=== PATIENT | male | born 1985 | race Caucasian/White ===

== ENCOUNTER 2022-05-12 12:40 | Outpatient (CLI) | payer MEDICARE, MEDICAID, SELFPAY | END 2022-05-12 12:41 | disposition home or self-care (01) | PROVIDERS: PCP Family Medicine; Visit Provider Family Medicine | DX: H90.3 Sensorineural hearing loss, bilateral (principal) | CPT/HCPCS: 92557; 92567 ==

== ENCOUNTER 2025-04-24 08:58 | Outpatient (CLI) | payer MEDICARE, MEDICAID, SELFPAY ==
--- OUTSIDE RECORDS SUMMARY | 2025-04-24 09:13 | XMS_ITS | Encounter Summary ---
Author Organization [facility] Address [address] [place] [address] Phone Care Team Providers Care Operating System Programmer Name Role Phone Marcellus Chino MD Primary Care Provider [phone] Encounter Details Date Type Department Care Team (Late st Contact Info) Description 02/04/2022 Lab Requisition [facility] [address] [place] [address] Marcellus Chino MD [address] [place] [address] [address] [place] [address] Encounter for screening for COVID-19 Social History Tobacco Use Types Packs/Day Years Used Date Smoking Tobacco: Never Smokeless Tobacco: Never Alcohol Use Standard Drinks/Week Comments Not Currently 0 (1 standard drink = 0.6 oz pur e alcohol) AUDIT-C Answer Date Recorded Frequency of Alcohol Consumption Never 03/03/2019 Average Number of Drinks Not on file 019 Frequency of Binge Drinking Not on file 02/18 Sex and Gender Information Value Date Recorded Sex Assigned at Not on file Legal Sex Male 10:37 AM CDT Gender Identity Not on file Sexual Orientation Not on file documented as of this encounter Plan of Treatment Upcoming Encounters Date Type Department Care Team (Late st Contact Info) Description 10/04/2025 10:00 AM ECOTHERAPIST Office Visit [facility] [address] [place] [address] Xi Ellison PAC [address] [place] [address] Discharge Disposition: Discharged to home or Selfcare documented as of this encounter Procedures Procedure Name Priority Date/Time Associated Diagnosis Comments SARS-COV-2 BY MOLECULAR Routine 02/04/2022 8:49 AM CDT Encounter for screening for COVID-19 documented in this encounter Results * SARS-COV-2 BY MOLECULAR (02/04/2022 8:49 AM CDT) SARSCOV2 NOT DETECTED (Referen ce Range for this test is Not Detected ) [facility] THERMOFISHER FAST DX 02/05/2022 3:45 PM CDT [facility] Comment:This test was perfor med by a RT-PCR method. Other Non-Phlebotomy Collection / Unknown 02/04/2022 8:49 AM CDT 02/04/2022 11:24 AM CDT Narrative [facility] - 02/05/2022 3:45 PM CDT Authorized Fact Sheets about this test for providers and patients are available at: https://www.fda.gov/medical-devices/zxohpncgm-mmvzsdhegl-jwubmht-devices/emergen cy-us e-authorizations us Marcellus Chino MD MICROBIOLOGY - GENERAL ORDERAB LES Final Result [facility] [address] [place] [address], documented in this encounter Visit Diagnoses Diagnosis Encounter for screening for COVID-19 documented in this encounter Additional Health Concerns Infection Onset Date Last Indicated Resolved Time COVID - 19 01/21/2022 07/29/2022 08/08/2022 12:1 6 AM ECOTHERAPIST COVID - 19 09/23/2022 10/07/2022 10/08/2022 12:3 9 AM ECOTHERAPIST COVID - 19 Confirmed 10/07/2022 10/07/2022 02/07/2 023 12:16 AM ECOTHERAPIST documented as of this encounter Care Teams Operating System Programmer Relationship Specialty Start Date End Date Marcellus Chino MD [address] [place] [address] PCP - General Family Medicine 09/24/21 documented as of this encounter
--- OUTSIDE RECORDS SUMMARY | 2025-04-24 09:13 | XMS_ITS | Encounter Summary ---
Author Organization [facility] Address [address] [place] [address] Phone Care Team Providers Care Fine Arts Packer Name Role Phone Marcellus Chino MD Primary Care Provider [phone] Encounter Details Date Type Department Care Team (Late st Contact Info) Description 02/11/2022 Lab Requisition [facility] [address] [place] [address] Marcellus Chino MD [address] [place] [address] [address] [place] [address] Encounter for screening for COVID-19 Social History [...] st Contact Info) Description 10/04/2025 10:00 AM CAT CRACKER OPERATOR Office Visit [facility] [address] [place] [address] Xi Ellison PAC 0 [place] [address] Discharge Disposition: Discharged to home or Selfcare documented as of this encounter Procedures Procedure Name Priority Date/Time Associated Diagnosis Comments SARS-COV-2 BY MOLECULAR Routine 02/11/2022 8:30 AM CDT Encounter for screening for COVID-19 documented in this encounter Results * SARS-COV-2 BY MOLECULAR (02/11/2022 8:30 AM CDT) SARSCOV2 NOT DETECTED (Referenc e Range for this test is Not Detected) [facility] DIASORIN LIAISON MDX [id number] 02/12/2022 4:01 AM CDT [facility] Comment:This test was perfor med by a RT-PCR method. Other Non-Phlebotomy Collection / Unknown 02/11/2022 8:30 AM CDT 02/11/2022 10:07 AM CDT Narrative [facility] - 02/12/2022 4:01 AM CDT Authorized Fact Sheets about this test for providers and patients are available at: https://www.fda.gov/medical-devices/milxglhqt-cueiqaskrz-wvdfbkr-devices/emergen -us e-authorizations us Marcellus Chino MD MICROBIOLOGY - GENERAL ORDERAB LES Final Result [facility] [address] [place] [address], documented in this encounter Visit Diagnoses Diagnosis Encounter for screening for COVID-19 documented in this encounter Additional Health Concerns Infection Onset Date Last Indicated Resolved Time COVID - 19 01/21/2022 07/29/2022 08/08/2022 12:1 6 AM CAT CRACKER OPERATOR COVID - 19 09/23/2022 10/07/2022 10/08/2022 12:3 9 AM CAT CRACKER OPERATOR COVID - 19 Confirmed 10/07/2022 10/07/202207/2 023 12:16 AM CAT CRACKER OPERATOR documented as of this encounter Care Teams Fine Arts Packer Relationship Specialty Start Date End Date Marcellus Chino MD [address] [facility] [address] [place] [address] PCP - General Family Medicine 09/24/21 documented as of this encounter
--- OUTSIDE RECORDS SUMMARY | 2025-04-24 09:13 | XMS_ITS | Clinical Summary ---
Author Organization [facility] Address [address] [place] [address] Care Team Providers Care Bottle Assembler Name Role Phone Marcellus Chino MD Primary Care Provider [phone] Allergies No known active allergies Medications fluticasone (FLONASE) 50 MCG/ACT Suspension 2 Sprays by Nasal route every morning. Active cetirizine (ZyrTEC) 10 MG Tablet Take 10 mg by mouth daily. Active Magnesium Hydroxide (MILK OF MAGNESIA PO) Take 30 mL by mouth as needed. Active Dextromethorph an HBr (ROBAFEN COUGH PO) Take by mouth as needed. Active acetaminophen (TYLENOL) 325 MG Tablet Take 325 mg by mouth every 4 hours as needed. Active Polyethylene Glycol 3350 (MIRALAX PO) Take by mouth Daily as needed (constipation) . Active ferrous sulfate 325 (65 Fe) MG Tablet Take 325 mg by mouth daily. 03/29/20 Discontinu ed(Med List Clean Up) Ascorbic Acid (VITAMIN C PO) Take 500 mg by mouth daily. 03/29/20 Discontinu ed(Med List Clean Up) Neomycin-Bacit racin-Polymyxi n (TRIPLE ANTIBIOTIC EX) by Apply externally route as needed. 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 Iron deficiency anemia Encounters Date Type Department Care Team Description 03/29/2025 10:00 AM CDT [facility] [address] [place] [address] Johnny Ellisonlene Linn, PAC Congenital dyserythropoietic anemia (Primary Dx); Iron deficiency anemia, unspecified iron deficiency anemia type; Elevated ferritin Discharge Disposition: Discharged to home or Selfcare 03/29/2025 Travel 03/22/2025 Results Follow-Up [facility] [address] [place] [address] EllisonJohnnyXi Linn, PAC CMP (COMPREHENSIVE METABOLIC PANEL), IRON,TRANSFERN,CALC.TIBC ,%SAT, FOLIC ACID (FOLATE), Additional followed-up results: 3 03/21/2025 Lab Requisition [facility] [address] [place] [address] Ellison, Xi Linn, PAC Iron deficiency anemia, unspecified 01/31/2025 Lab Requisition [facility] [address] [place] [address] Marcellus Chino MD Hypothyroidism, unspecified; Mild intellectual disabilities; Disorder of the autonomic nervous system, unspecified from Last 3 Months Immunizations Immunization Administration Dates Next Due Covid-19, Mrna, Lnp-s, Pf, 30 Mcg/0.3 Ml Dose (P fizer) 07/25/2021 Diptheria, Pertussis, And Tetanus 04/03/1999 Hepatitis B Vaccine 12/02/1998 MMR Vaccine 04/20/1991 OPV 08/04/1986 TDAP Vaccine 12/14/2018 Family History Relation Name Status Comments Father Alive Mother Alive Social History Tobacco Use Types Packs/Day Years Used Date Smoking Tobacco: Never Smokeless Tobacco: Never Tobacco Cessation:Counseling Given: Not Answered Alcohol Use Standard Drinks/Week Comments Yes 0 (1 standard drink = 0.6 oz pur e alcohol) occasionally AUDIT-C Answer Date Recorded Frequency of Alcohol Consumption Never 03/03/2019 Average Number of Drinks Not on file 019 Frequency of Binge Drinking Not on file 02/18 Sex and Gender Information Value Date Recorded Sex Assigned at Not on file Legal Sex Male 10:37 AM CDT Gender Identity Not on file Sexual Orientation Not on file Last Filed Vital Signs Vital Sign Reading Time Taken Comments Blood Pressure 131/80 03/29/2025 10:05 AM CDT Pulse 102 03/29/2025 10:05 AM CDT Temperature 37.2 C (98.9 F) 03/29/2025 10:05 AM CDT Respiratory Rate 18 03/29/2025 10:05 AM CDT Oxygen Saturation 98% 03/29/2025 10:05 AM CDT Inhaled Oxygen Concentration - - Weight 70.3 kg (155 lb) 03/29/2025 10:05 AM CDT Height 160 cm (5' 3) 03/29/2025 10:05 AM CDT Body Mass Index 27.46 03/29/2025 10:05 AM CDT Plan of Treatment Upcoming Encounters Date Type Department Care Team (Late st Contact Info) Description 10/04/2025 10:00 AM RECEIVING CHECKER Office Visit [facility] [address] [place] [address] Xi Ellison Linn, PAC [address] [place] [address] Discharge Disposition: Discharged to home or Selfcare Health Maintenance Due Date Last Done Comments Hepatitis C Virus (HCV) Screening 1985 Hepatitis B Immunization (2 of 3 - 3-dose series) 12/30/1998 12/02/1998 Human Papillomavirus (HPV) Immunization (1 - 3-dose SCDM series) 02/08/2012 SARS-COV-2 Immunization ( season) 2024 07/25/2021, 11/25/2020, 10/31/2020 Influenza Immunization (#1) 2025 Respiratory Syncytial Virus (RSV) Immunization (Adult) (1 - 1-dose 75+ series) 02/08/2060 DTaP/Tdap/Td Immunization Discontinued 12/14/2018, Down Syndrome: TSH Level Discontinued 01/31/2025, 01/18 Down Syndrome: Complete Blood Count Discontinued 03/21/2025, 01/31/2025, 09/21/2024, Additional history exists Down Syndrome: Iron Studies Discontinued 10/2024, 03/21/2025, 09/21/2024, Additional history exists Meningococcal Immunization (ACWY) Aged Out No longer eligible based on patient's age to complete this topic Pneumococcal Immunization Combined Aged Out No longer eligible based on patient's age to complete this topic Rotavirus Immunization Aged Out No lo nger eligible based on patient's age to complete this topic Procedures Procedure Name Priority Date/Time Associated Diagnosis Comments CBC WITH AUTO DIFFERENTIAL Routine 03/21/2025 6:35 AM CDT Iron deficiency anemia, unspecified COMPLETE BLOOD COUNT (CBC) WITH DIFF Routine 03/21/2025 6:35 AM CDT Iron deficiency anemia, unspecified VITAMIN D, 25 HYDROXY TOTAL Routine 03/21/2025 6:35 AM CDT Iron deficiency anemia, unspecified FERRITIN Routine 03/21/2025 6:35 AM CDT Iron deficiency anemia, unspecified FOLIC ACID (FOLATE) Routine 03/21/2025 6 :35 AM CDT Iron deficiency anemia, unspecified IRON,TRANSFERN,CALC.T IBC,%SAT Routine 03/21/2025 6:35 AM CDT Iron deficiency anemia, unspecified CMP (COMPREHENSIVE METABOLIC PANEL) Routine 03/21/2025 6:35 AM CDT Iron deficiency anemia, unspecified CBC WITH AUTO DIFFERENTIAL Routine 01/31/2025 7:18 AM CDT Hypothyroidism, unspecified Mild intellectual disabilities Disorder of the autonomic nervous system, unspecified COMPLETE BLOOD COUNT (CBC) WITH DIFF Routine 01/31/2025 7:18 AM CDT Hypothyroidism, unspecified Mild intellectual disabilities Disorder of the autonomic nervous system, unspecified THYROID STIMULATING HORMONE (TSH) Routine 01/31/2025 7:18 AM CDT Hypothyroidism, unspecified Mild intellectual disabilities Disorder of the autonomic nervous system, unspecified LIPID PANEL Routine 01/31/2025 7:18 AM CDT Hypothyroidism, unspecified Mild intellectual disabilities Disorder of the autonomic nervous system, unspecified CMP (COMPREHENSIVE METABOLIC PANEL) Routine 01/31/2025 7:18 AM CDT Hypothyroidism, unspecified Mild intellectual disabilities Disorder of the autonomic nervous system, unspecified from Last 3 Months Results * VITAMIN D, 25 HYDROXY TOTAL (03/21/2025 6:35 AM CDT) VITAMIN D, 25 HYDROX 29.2 ng/mL 03/21/2025 8:26 AM CDT [facility] Blood Venipuncture / Unknown 03/21/2025 6:35 AM CDT 03/21/2025 7:17 AM CDT Narrative [facility] - 03/21/2025 8:26 AM CDT Published reference ranges for Vitamin D vary depending on time and place and method of testing, and on patient's age, sex, ethnicity and levels of other measured analytes such as parathormone, calcium and phosphorus. The result should be evaluated in conjunction with clinical findings and suspicions. [place] [employer] and Endocrine Clinical Practice Guidelines: Status Vitamin D levels (ng/mL) Deficient <=20 At risk of inadequacy 21-29 Sufficient 30-100 Centers of Disease Control and Prevention Guidelines: Status Vitamin D levels (ng/mL) Deficient <13 At risk of inadequacy 13-19 Sufficient 20-50 Possibly harmful >50 References: [place] [employer], 2010 Dietary reference intakes for calcium and vitamin D. [place]: The National Academies Press. Clinton M, Quinton N, Otis RUSSO, et al., Evaluation, treatment, and prevention of Vitamin D deficiency: an Endocrinology Clinical Practice Guideline. JCEM 2011 96: 7 0681-9620. Chichi A, Braxton C, Kris D, et al., Vitamin D Status: [place], 7782-2836, [facility] data brief, no. 59, MD [place]: National Center for Health Statistics. 2011. Xi Ellison PAC CHEMISTRY ORDERABLES Judith l Result Performing Organization Address City/[facility]/ZIP Co de Phone Number [facility] [place] [address] * (ABNORMAL) IRON,TRANSFERN,CALC.TIBC,%SAT (03/21/2025 6:35 AM CDT) Pathologist [facility] IRON 105 31 - 144 mcg/dL 03/21/2025 10:40 AM CDT [facility] TRANSFERRIN 189 174 - 364 mg/dL 03/21/2025 10:40 AM CDT [facility] TIBC, CALCULATED 236(L) 261 - 462 mcg/dL 03/21/2025 10:40 AM CDT [facility] % SATURATION * 44 15 - 62 % 03/21/2025 10:40 AM CDT [facility] Blood Venipuncture / Unknown 03/21/2025 6:35 AM CDT 03/21/2025 7:17 AM CDT Xi Ellison [facility] CHEMISTRY ORDERABLES Judith l Result Performing Organization Address [facility] Co de Phone Number [facility] [place] [address] * (ABNORMAL) CBC WITH AUTO DIFFERENTIAL (03/21/2025 6:35 AM CDT) Only the most recent of2 resultswithin the time period is included. WBC 6.12 4.00 - 12.00 10(3)/mcL 03/21/2025 8:43 AM CDT [facility] RBC 5.91(H) 4.40 - 5.80 10(6)/mcL 03/21/2025 8:43 AM CDT [facility] HEMOGLOBIN (HGB) 11.9(L) 13.0 - 16.5 g/dL 03/21/2025 8:43 AM CDT [facility] HEMATOCRIT (HCT) 38.5 38.0 - 50.0 % 03/21/2025 8:43 AM CDT [facility] MCV 65.1(L) 82.0 - 96.0 fL 03/21/2025 8:43 AM CDT [facility] MCH 20.1(L) 26.0 - 32.0 pg 03/21/2025 8:43 AM CDT [facility] MCHC 30.9(L) 31.0 - 36.0 g/dL 03/21/2025 8:43 AM CDT [facility] PLATELET COUNT 257 140 - 440 10(3)/mcL 03/21/2025 8:43 AM CDT [facility] RDW 17.3(H) 11.8 - 15.5 % 03/21/2025 8:43 AM CDT [facility] MPV 9.9 8.0 - 12.6 fL 03/21/2025 8:43 AM CDT [facility] NEUTROPHILS 43.4 40.0 - 68.0 % 03/21/2025 8:43 AM CDT [facility] LYMPHOCYTES 41.0 19.0 - 49.0 % 03/21/2025 8:43 AM CDT [facility] MONOCYTES 12.7 3.0 - 13.0 % 03/21/2025 8:43 AM CDT [facility] EOSINOPHILS 1.6 0.0 - 8.0 % 03/21/2025 8:43 AM CDT [facility] BASOPHILS 1.0 0.0 - 1.0 % 03/21/2025 8:43 AM CDT [facility] IMMATURE GRANULOCYTE 0.3 0.0 - 0.4 % 03/21/2025 8:43 AM CDT [facility] Comment:Immature Granulocyte s includes Metamyelocytes, Myelocytes, and Promyelocytes. ABSOLUTE NEUTROPHILS 2.65 1.40 - 5.30 10(3)/mcL 03/21/2025 8:43 AM CDT [facility] ABSOLUTE LYMPHOCYTES 2.51 0.90 - 3.30 10(3)/mcL 03/21/2025 8:43 AM CDT [facility] ABSOLUTE MONOCYTES 0.78 0.10 - 0.90 10(3)/mcL 03/21/2025 8:43 AM CDT [facility] ABSOLUTE EOSINOPHIL 0.10 0.00 - 0.50 10(3)/mcL 03/21/2025 8:43 AM CDT [facility] ABSOLUTE BASOPHILS 0.06 0.00 - 0.10 10(3)/mcL 03/21/2025 8:43 AM CDT [facility] ABSOLUTE IMMATURE GRANULOCYTE 0.02 0.00 - 0.03 10 (3) mcL. 03/21/2025 8:43 AM CDT [facility] NRBC PER 100 WBC 0 03/21/20 8:43 AM CDT [facility] RESULTS ARE CONSISTENT WITH PERIPHERAL SMEAR REVIEW Yes 03/21/2025 8:43 AM CDT [facility] RBC MORPHOLOGY CONSISTENT WITH INDICES Yes 03/21/2025 8:43 AM CDT [facility] POIKILOCYTOSIS 1+ 03/21/2025 8:43 AM CDT [facility] ELLIPTOCYTES Present 03/21/2025 8:43 AM CDT [facility] OVALOCYTES Present 03/21/2025 8:43 AM CDT [facility] POLYCHROMASIA 1+ 03/21/2025 8:43 AM CDT [facility] Blood Venipuncture / Unknown 03/21/2025 6:35 AM CDT 03/21/2025 7:17 AM CDT Narrative [facility] - 03/21/2025 8:43 AM CDT Anisocytosis Microcytosis us Xi Ellison PAC HEMATOLOGY ORDERABLES Fin al Result [facility] [place] [address] * FOLIC ACID (FOLATE) (03/21/2025 6:35 AM CDT) FOLATE 13.1 7.0 - 31.4 ng/mL 03/21/2025 8:26 AM CDT [facility] Blood Venipuncture / Unknown 03/21/2025 6:35 AM CDT 03/21/2025 7:17 AM CDT [facility] PAC CHEMISTRY ORDERABLES Judith l Result Performing Organization Address City/[facility]/ZIP Co de Phone Number [facility] [place] [address] * (ABNORMAL) FERRITIN (03/21/2025 6:35 AM CDT) Pathologist [facility] FERRITIN 872(H) 22 - 274 ng/mL 03/21/2025 8:12 AM CDT [facility] Blood Venipuncture / Unknown 03/21/2025 6:35 AM CDT 03/21/2025 7:17 AM CDT [facility] PAC CHEMISTRY ORDERABLES Judith l Result Performing Organization Address [facility] Co de Phone Number [facility] [place] [address] * (ABNORMAL) CMP (COMPREHENSIVE METABOLIC PANEL) (03/21/2025 6:35 AM CDT) Only the most recent of2 resultswithin the time period is included. Pathologist [facility] SODIUM 142 136 - 145 mmol/L 03/21/2025 7:56 AM CDT [facility] POTASSIUM 3.7 3.5 - 5.1 mmol/L 03/21/2025 7:56 AM CDT [facility] CHLORIDE 106 98 - 107 mmol/L 03/21/2025 7:56 AM CDT [facility] CO2, VENOUS 28 22 - 30 mmol/L 03/21/2025 7:56 AM CDT [facility] ANION GAP 11.7 <18.0 mmol/L 03/21/2025 7:56 AM CDT [facility] GLUCOSE 82 70 - 99 mg/dL 03/21/2025 7:56 AM CDT [facility] BUN 18 9 - 21 mg/dL 03/21/2025 7:56 AM [facility] CREATININE, BLOOD 1.11 0.70 - 1.30 mg/dL 03/21/2025 7:56 AM T [facility] BUN/CREATININE RATIO 16 12 - 20 ratio 03/21/2025 7:56 AM CDT [facility] TOTAL PROTEIN 6.9 6.0 - 8.0 g/dL 03/21/2025 7:56 AM T [facility] ALBUMIN 3.9 3.5 - 5.0 g/dL 03/21/2025 7:56 AM [facility] A/G RATIO 1.3 1.0 - 2.2 03/21/2025 7:56 AM CDT [facility] CALCIUM 8.5(L) 8.7 - 10.5 mg/dL 03/21/2025 7:56 AM T [facility] T BILI 0.6 0.2 - 1.2 mg/dL 03/21/2025 7:56 AM [facility] SGOT (AST) 21 <43 U/L 03/21/2025 7:56 AM [facility] SGPT (ALT) 18 <56 U/L 03/21/2025 7:56 AM [facility] ALKALINE PHOSPHATASE 63 40 - 150 U/L 03/21/2025 7:56 AM [facility] GFR, ESTIMATED >60 >=60 03/21/2025 7:56 AM [facility] Comment: Creatinine Clearance is the preferred criteria for selecting drug dose adjustments in renally impaired patients. The GFR is provided as additional pertinent clinical information. GFR is reported in mL/min/1.73 sq m. Calculation based on the Chronic Kidney Disease Epidemiology Collaboration (CKD- EPI) equation refit without adjustment for race. GFR, EST. >60 >=60 025 7:56 AM CDT [facility] GFR, EST. NONAFRICAN >60 >=60 03/21/2025 7:56 AM CDT [facility] Blood Venipuncture / Unknown 03/21/2025 6:35 AM CDT 03/21/2025 7:17 AM CDT Xi Ellison PAC CHEMISTRY ORDERABLES Judith l Result Performing Organization Address City/[facility]/ZIP Co de Phone Number [facility] [place] [address] * THYROID STIMULATING HORMONE (TSH) (01/31/2025 7:18 AM CDT) TSH 1.760 0.300 - 5.000 mIU/L 01/31/2025 12:26 PM CDT [facility] Blood Venipuncture / Unknown 01/31/2025 7:18 AM CDT 01/31/2025 8:12 AM CDT Marcellus Chino MD CHEMISTRY ORDERABLES Final Res ult [facility] [place] [address] * LIPID PANEL (01/31/2025 7:18 AM CDT) CHOLESTEROL 144 <200 mg/dL 01/31/2025 12:01 PM CDT [facility] TRIGLYCERIDES 61 <150 mg/dL 01/31/2025 12:01 PM CDT [facility] HDL CHOLESTEROL 45 >40 mg/dL 12:01 PM CDT [facility] LDL 87 <130 mg/dL 01/31/2025 12:01 PM CDT [facility] VLDL 12 10 - 50 mg/dL 01/31/2025 12:01 PM CDT [facility] CHOL/HDL RATIO 3.2 0.0 - 4.4 01/31/2025 12:01 PM CDT [facility] NON-HDL CHOLESTEROL 99 <130 mg/dL 01/31/2025 12:01 PM CDT [facility] Blood Venipuncture / Unknown 01/31/2025 7:18 AM CDT 01/31/2025 8:12 AM CDT us Marcellus Chino MD CHEMISTRY ORDERABLES Final Res ult [facility] [place] [address] from Last 3 Months Insurance MEDICARE MEDICAID [place] Advance Directives Documents on File Type Date Recorded Patient Produce Specialist Expl anation Guardian of Person 07/27/2023 10:43 AM [employer] P[employer]ERWORK Other Advance Directive 03/04/2022 10:21 AM [facility] 2 Care Teams Bottle Assembler Relationship Specialty Start Date End Date Marcellus Chino MD [address] [facility] [facility] [address] [place] [address] PCP - General Family Medicine 09/24/21
--- OUTSIDE RECORDS SUMMARY | 2025-04-24 09:14 | XMS_ITS | Encounter Summary ---
Author Organization [facility] Address [address] [facility] [address] Phone Care Team Providers Care Corn Cutter Name Role Phone Marcellus Chino MD Primary Care Provider [phone] Encounter Details Date Type Department Care Team (Late st Contact Info) Description 01/31/2025 Lab Requisition [facility] Laboratory Services 1 [place] [address] Marcellus Chino MD [address] [place] [address] [address] [place] [address] Hypothyroidism, unspecified; Mild intellectual disabilities; Disorder of the autonomic nervous system, unspecified Social History Tobacco Use Types Packs/Day Years Used Date Smoking Tobacco: Never Smokeless Tobacco: Never Alcohol Use Standard Drinks/Week Comments Yes 0 [...] st Contact Info) Description 10/04/2025 10:00 AM ASSOCIATE BROKER Office Visit [facility] Oncology Services [address] [place] [address] Xi Ellison February, PAC [address] [place] [address] Discharge Disposition: Discharged to home or Selfcare documented as of this encounter Procedures Procedure Name Priority Date/Time Associated Diagnosis Comments CBC WITH AUTO DIFFERENTIAL Routine 01/31/2025 7:18 [...] Disorder of the autonomic nervous system, unspecified documented in this encounter Results * (ABNORMAL) CBC WITH AUTO DIFFERENTIAL (01/31/2025 7:18 AM CDT) WBC 6.69 4.00 - 12.00 10(3)/mcL 01/31/2025 9:11 AM CDT [facility] RBC 6.14(H) 4.40 - 5.80 10(6)/mcL 01/31/2025 9:11 AM CDT [facility] HEMOGLOBIN (HGB) 12.3(L) 13.0 - 16.5 g/dL 01/31/2025 9:11 AM CDT [facility] HEMATOCRIT (HCT) 40.5 38.0 - 50.0 % 01/31/2025 9:11 AM CDT [facility] MCV 66.0(L) 82.0 - 96.0 fL 01/31/2025 9:11 AM CDT [facility] MCH 20.0(L) 26.0 - 32.0 pg 01/31/2025 9:11 AM CDT [facility] MCHC 30.4(L) 31.0 - 36.0 g/dL 01/31/2025 9:11 AM CDT [facility] PLATELET COUNT 193 140 - 440 10(3)/mcL 01/31/2025 9:11 AM CDT [facility] RDW 18.1(H) 11.8 - 15.5 % 01/31/2025 9:11 AM CDT [facility] MPV 10.2 8.0 - 12.6 fL 01/31/2025 9:11 AM CDT [facility] NEUTROPHILS 31.0(L) 40.0 - 68.0 % 01/31/2025 9:11 AM CDT [facility] LYMPHOCYTES 48.4 19.0 - 49.0 % 01/31/2025 9:11 AM CDT [facility] MONOCYTES 17.6(H) 3.0 - 13.0 % 01/31/2025 9:11 AM CDT [facility] EOSINOPHILS 2.4 0.0 - 8.0 % 01/31/2025 9:11 AM CDT [facility] BASOPHILS 0.6 0.0 - 1.0 % 01/31/2025 9:11 AM CDT [facility] ABSOLUTE NEUTROPHILS 2.07 1.40 - 5.30 10(3)/mcL 01/31/2025 9:11 AM CDT [facility] ABSOLUTE LYMPHOCYTES 3.24 0.90 - 3.30 10(3)/mcL 01/31/2025 9:11 AM CDT [facility] ABSOLUTE MONOCYTES 1.18(H) 0.10 - 0.90 10(3)/mcL 01/31/2025 9:11 AM CDT [facility] ABSOLUTE EOSINOPHIL 0.16 0.00 - 0.50 10(3)/[facility] 01/31/2025 9:11 AM CDT [facility] ABSOLUTE BASOPHILS 0.04 0.00 - 0.10 10(3)/mcL 01/31/2025 9:11 AM CDT [facility] NRBC PER 100 WBC 0 02/01/20 9:11 AM CDT [facility] RESULTS ARE CONSISTENT WITH PERIPHERAL SMEAR REVIEW Yes 01/31/2025 9:11 AM CDT [facility] RBC MORPHOLOGY CONSISTENT WITH INDICES Yes 01/31/2025 9:11 AM CDT [facility] POIKILOCYTOSIS 1+ 01/31/2025 9:11 AM CDT [facility] TARGET Present 01/31/2025 9:11 AM CDT [facility] OVALOCYTES Present 01/31/2025 9:11 AM CDT [facility] Blood Venipuncture / Unknown 01/31/2025 7:18 AM CDT 01/31/2025 8:12 AM CDT Narrative [facility] - 01/31/2025 9:11 AM CDT Microcytosis us Marcellus Chino MD HEMATOLOGY ORDERABLES Final Re sult Performing Organization Address City/[facility]/ZIP Co de Phone Number [facility] [address] [place] [address] * THYROID STIMULATING HORMONE (TSH) (01/31/2025 7:18 AM CDT) TSH 1.760 0.300 - 5.000 mIU/L 01/31/2025 12:26 PM CDT [facility] Blood Venipuncture / Unknown 01/31/2025 7:18 AM CDT 01/31/2025 8:12 AM CDT Marcellus Chino MD CHEMISTRY ORDERABLES Final Res ult [facility] [address] [place] [address] * LIPID PANEL (01/31/2025 7:18 AM CDT) CHOLESTEROL 144 <200 mg/dL 01/31/2025 12:01 PM CDT [facility] TRIGLYCERIDES 61 <150 mg/dL 01/31/2025 12:01 PM CDT [facility] HDL CHOLESTEROL 45 >40 mg/dL 12:01 PM CDT [facility] LDL 87 <130 mg/dL 01/31/2025 12:01 PM CDT [facility] VLDL 12 10 - 50 mg/dL 01/31/2025 12:01 PM CDT [facility] CHOL/HDL RATIO 3.2 0.0 - 4.4 01/31/2025 12:01 PM CDT [facility] NON-HDL CHOLESTEROL 99 <130 mg/dL 01/31/2025 12:01 PM CDT [facility] Blood Venipuncture / Unknown 01/31/2025 7:18 AM CDT 01/31/2025 8:12 AM CDT us Marcellus Chino MD CHEMISTRY ORDERABLES Final Res ult [facility] [address] [place] [address] * CMP (COMPREHENSIVE METABOLIC PANEL) (01/31/2025 7:18 AM CDT) SODIUM 139 136 - 145 mmol/L 01/31/2025 12:01 PM CDT [facility] POTASSIUM 3.9 3.5 - 5.1 mmol/L 01/31/2025 12:01 PM CDT [facility] CHLORIDE 106 98 - 107 mmol/L 01/31/2025 12:01 PM CDT [facility] CO2, VENOUS 25 22 - 30 mmol/L 01/31/2025 12:01 PM T [facility] ANION GAP 11.9 <18.0 mmol/L 01/31/2025 12:[address] [facility] GLUCOSE 77 70 - 99 mg/dL 01/31/2025 12:[address] [facility] BUN 15 9 - 21 mg/dL 01/31/2025 12:[address] [facility] CREATININE, BLOOD 1.00 0.70 - 1.30 mg/dL 01/31/2025 12:[address] [facility] BUN/CREATININE RATIO 15 12 - 20 ratio 01/31/2025 12:[address] [facility] TOTAL PROTEIN 7.0 6.0 - 8.0 g/dL 01/31/2025 12:[address] [facility] ALBUMIN 3.7 3.5 - 5.0 g/dL 01/31/2025 12:[address] [facility] A/G RATIO 1.1 1.0 - 2.2 01/31/2025 12:[address] [facility] CALCIUM 8.7 8.7 - 10.5 mg/dL 01/31/2025 12:[address] [facility] T BILI 0.4 0.2 - 1.2 mg/dL 01/31/2025 12:[address] [facility] SGOT (AST) 22 <43 U/L 01/31/2025 12:[address] [facility] SGPT (ALT) 15 <56 U/L 01/31/2025 12:[address] [facility] ALKALINE PHOSPHATASE 57 40 - 150 U/L 01/31/2025 12:[address] [facility] GFR, ESTIMATED >60 >=60 01/31/2025 12:[address] [facility] Comment: Creatinine Clearance is the preferred criteria for selecting drug dose adjustments in renally impaired patients. The GFR is provided as additional pertinent clinical information. GFR is reported in mL/min/1.73 sq m. Calculation based on the Chronic Kidney Disease Epidemiology Collaboration (CKD- EPI) equation refit without adjustment for race. GFR, EST. >60 >=60 025 12:01 PM CDT [facility] GFR, EST. NONAFRICAN >60 >=60 01/31/2025 12:01 PM CDT [facility] Blood Venipuncture / Unknown 01/31/2025 7:18 AM CDT 01/31/2025 8:12 AM CDT us Marcellus Chino MD CHEMISTRY ORDERABLES Final Res ult [facility] [address] [place] [address] documented in this encounter Visit Diagnoses Diagnosis Hypothyroidism, unspecified Mild intellectual disabilities Disorder of the autonomic nervous system, unspecified documented in this encounter Care Teams Corn Cutter Relationship Specialty Start Date End Date Marcellus Chino MD [address] [facility] [place] [place] [address] PCP - General Family Medicine 09/24/21 documented as of this encounter
--- OUTSIDE RECORDS SUMMARY | 2025-04-24 09:14 | XMS_ITS | Encounter Summary ---
Author Organization [facility] Address [address] [facility] [place] [address] Phone Care Team Providers Care Art Tracer Name Role Phone Marcellus Chino MD Primary Care Provider [phone] Encounter Details Date Type Department Care Team (Late st Contact Info) Description 04/29/2022 Lab Requisition [facility] Laboratory Services 1 [place] [address] Marcellus Chino MD [address] [place] [address] [address] [place] [address] Encounter for screening for COVID-19 Social History [...] st Contact Info) Description 10/04/2025 10:00 AM BANK WORKER Office Visit [facility] - Cancer Center Oncology Services [address] [place] [address] Xi Ellison PAC 0 [place] [address] Discharge Disposition: Discharged to home or Selfcare documented as of this encounter Procedures Procedure Name Priority Date/Time Associated Diagnosis Comments SARS-COV-2 BY MOLECULAR Routine 04/29/2022 7:53 AM CDT Encounter for screening for COVID-19 documented in this encounter Results * SARS-COV-2 BY MOLECULAR (04/29/2022 7:53 AM CDT) SARSCOV2 NOT DETECTED (Referen ce Range for this test is Not Detected ) [facility] THERMOFISHER FAST DX 04/30/2022 8:01 PM CDT [facility] Comment:This test was perfor med by a RT-PCR method. Other No Phlebotomy Charged / Unknown 04/29/2022 7:53 AM CDT 04/29/2022 11:18 AM CDT Narrative [facility] - 04/30/2022 8:01 PM CDT Authorized Fact Sheets about this test for providers and patients are available at: https://www.fda.gov/medical-devices/msiqwaqeb-nupudmgrqz-qxufqfs-devices/emergen -us e-authorizations us Marcellus Chino MD MICROBIOLOGY - GENERAL ORDERAB LES Final Result [facility] [address] [place] [address], documented in this encounter Visit Diagnoses Diagnosis Encounter for screening for COVID-19 documented in this encounter Additional Health Concerns Infection Onset Date Last Indicated Resolved Time COVID - 19 01/21/2022 07/29/2022 08/08/2022 12:1 6 AM BANK WORKER COVID - 19 09/23/2022 10/07/2022 10/08/2022 12:3 9 AM BANK WORKER COVID - 19 Confirmed 10/07/2022 10/07/2022 02/07/2 023 12:16 AM BANK WORKER documented as of this encounter Care Teams Art Tracer Relationship Specialty Start Date End Date Marcellus Chino MD [address] [facility] [address] [place] [address] PCP - General Family Medicine 09/24/21 documented as of this encounter
--- OUTSIDE RECORDS SUMMARY | 2025-04-24 09:14 | XMS_ITS | Encounter Summary ---
Author Organization [facility] Address [address] [facility] [place] [address] Phone Care Team Providers Care Physician Interventional Cardiologist Name Role Phone Marcellus Chino MD Primary Care Provider [phone] Encounter Details Date Type Department Care Team (Latest Contact Info) Description 09/21/2024 Lab Requisition [facility] Laboratory Services 1 [place] [id number] Xi Ellison Linn, PAC [address] [place] [address] Congenital dyserythropoietic anemia Social History Tobacco Use Types Packs/Day Years [...] st Contact Info) Description 10/04/2025 10:00 AM EMERGENCY NURSE [facility] [address] [place] [phone] Ellison, Xifebruary, [place] [address] Discharge Disposition: Discharged to home or Selfcare documented as of this encounter Procedures Procedure Name Priority Date/Time Associated Diagnosis Comments IRON,TRANSFERN,CALC .TIBC,%SAT Routine 09/21/2024 7:20 AM EMERGENCY NURSE Congenital dyserythropoietic anemia CBC WITH AUTO DIFFERENTIAL Routine 09/21/2024 7:20 AM EMERGENCY NURSE Congenital dyserythropoietic anemia VITAMIN B12 Routine 09/21/2024 7:20 AM EMERGENCY NURSE Congenital dyserythropoietic anemia FERRITIN Routine 09/21/2024 7:20 AM EMERGENCY NURSE Congenital dyserythropoietic anemia COMPLETE BLOOD COUNT (CBC) WITH DIFF Routine 09/21/2024 7:20 AM EMERGENCY NURSE Congenital dyserythropoietic anemia documented in this encounter Results * (ABNORMAL) CBC WITH AUTO DIFFERENTIAL (09/21/2024 7:20 AM EMERGENCY NURSE) WBC 7.77 4.00 - 12.00 10(3)/mcL 09/21/2024 8:33 AM EMERGENCY NURSE [facility] RBC 6.30(H) 4.40 - 5.80 10(6)/mcL 09/21/2024 8:33 AM EMERGENCY NURSE [facility] HEMOGLOBIN (HGB) 12.6(L) 13.0 - 16.5 g/dL 09/21/2024 8:33 AM EMERGENCY NURSE [facility] HEMATOCRIT (HCT) 41.3 38.0 - 50.0 % 09/21/2024 8:33 AM EMERGENCY NURSE [facility] MCV 65.6(L) 82.0 - 96.0 fL 09/21/2024 8:33 AM EMERGENCY NURSE [facility] MCH 20.0(L) 26.0 - 32.0 pg 09/21/2024 8:33 AM EMERGENCY NURSE [facility] MCHC 30.5(L) 31.0 - 36.0 g/dL 09/21/2024 8:33 AM [facility] PLATELET COUNT 266 140 - 440 10(3)/[facility] 09/21/2024 8:33 AM [facility] RDW 18.2(H) 11.8 - 15.5 % 09/21/2024 8:33 AM [facility] MPV 9.9 8.0 - 12.6 fL 09/21/2024 8:33 AM [facility] NEUTROPHILS 54.4 40.0 - 68.0 % 09/21/2024 8:33 AM [facility] LYMPHOCYTES 32.7 19.0 - 49.0 % 09/21/2024 8:33 AM [facility] MONOCYTES 11.1 3.0 - 13.0 % 09/21/2024 8:33 AM [facility] EOSINOPHILS 1.0 0.0 - 8.0 % 09/21/2024 8:33 AM [facility] BASOPHILS 0.8 0.0 - 1.0 % 09/21/2024 8:33 AM [facility] ABSOLUTE NEUTROPHILS 4.23 1.40 - 5.30 10(3)/[facility] 09/21/2024 8:33 AM [facility] ABSOLUTE LYMPHOCYTES 2.54 0.90 - 3.30 10(3)/[facility] 09/21/2024 8:33 AM [facility] ABSOLUTE MONOCYTES 0.86 0.10 - 0.90 10(3)/[facility] 09/21/2024 8:33 AM [facility] ABSOLUTE EOSINOPHIL 0.08 0.00 - 0.50 10(3)/[facility] 09/21/2024 8:33 AM [facility] ABSOLUTE BASOPHILS 0.06 0.00 - 0.10 10(3)/[facility] 09/21/2024 8:33 AM [facility] NRBC PER 100 WBC 0 09/21/19 8:33 AM [facility] RESULTS ARE CONSISTENT WITH PERIPHERAL SMEAR REVIEW Yes 09/21/2024 8:33 AM EMERGENCY NURSE [facility] RBC MORPHOLOGY CONSISTENT WITH INDICES Yes 09/21/2024 8:33 AM EMERGENCY NURSE [facility] Blood Venipuncture / Unknown 09/21/2024 7:20 AM EMERGENCY NURSE 09/21/2024 8:11 AM EMERGENCY NURSE [facility] HEMATOLOGY ORDERABLES Fin al Result [facility] [address] [place] [address] * (ABNORMAL) IRON,TRANSFERN,CALC.TIBC,%SAT (09/21/2024 7:20 AM EMERGENCY NURSE) IRON 72 31 - 144 mcg/dL 09/21/2024 10:25 AM EMERGENCY NURSE [facility] TRANSFERRIN 202 174 - 364 mg/dL 09/21/2024 10:25 AM EMERGENCY NURSE [facility] TIBC, CALCULATED 253(L) 261 - 462 mcg/dL 09/21/2024 10:25 AM EMERGENCY NURSE [facility] % SATURATION * 28 15 - 62 % 09/21/2024 10:25 AM EMERGENCY NURSE [facility] Blood Venipuncture / Unknown 09/21/2024 7:20 AM EMERGENCY NURSE 09/21/2024 8:11 AM EMERGENCY NURSE [facility] CHEMISTRY ORDERABLES Judith l Result [facility] [address] [place] [address] * (ABNORMAL) VITAMIN B12 (09/21/2024 7:20 AM EMERGENCY NURSE) VITAMIN B12 997(H) 213 - 816 pg/mL 09/21/2024 9:06 AM EMERGENCY NURSE [facility] Blood Venipuncture / Unknown 09/21/2024 7:20 AM EMERGENCY NURSE 09/21/2024 8:11 AM EMERGENCY NURSE [facility] PAC CHEMISTRY ORDERABLES Judith l Result Performing Organization Address City/[facility]/ZIP Co de Phone Number [facility] [address] [place] [address] * (ABNORMAL) FERRITIN (09/21/2024 7:20 AM EMERGENCY NURSE) FERRITIN 1,022(H) 22 - 274 ng/mL 09/21/2024 10:42 AM EMERGENCY NURSE [facility] Blood Venipuncture / Unknown 09/21/2024 7:20 AM EMERGENCY NURSE 09/21/2024 8:11 AM EMERGENCY NURSE [facility] PAC CHEMISTRY ORDERABLES Judith l Result Performing Organization Address [facility] Co de Phone Number [facility] [address] [place] [address] documented in this encounter Visit Diagnoses Diagnosis Congenital dyserythropoietic anemia Other specified anemias documented in this encounter Care Teams Physician Interventional Cardiologist Relationship Specialty Start Date End Date Marcellus Chino MD [address] [facility] [address] [place] [address] PCP - General Family Medicine 09/24/21 documented as of this encounter
--- OUTSIDE RECORDS SUMMARY | 2025-04-24 09:14 | XMS_ITS | Encounter Summary ---
Author Organization [facility] Address [address] [facility] [place] [address] Phone Care Team Providers Care Electronic Parts Designer Name Role Phone Marcellus Chino MD Primary Care Provider [phone] Encounter Details Date Type Department Care Team (Late st Contact Info) Description 05/20/2022 Lab Requisition [facility] Laboratory Services 1 [place] [address] Marcellus Chino MD [address] [place] [address] [address] [place] [address] Encounter for screening for COVID-19 Social History [...] st Contact Info) Description 10/04/2025 10:00 AM CLINICAL RESEARCH ASSOCIATE Office Visit [facility] Oncology Services [address] [place] [address] Xi Ellison PAC 0 [place] [address] Discharge Disposition: Discharged to home or Selfcare documented as of this encounter Procedures Procedure Name Priority Date/Time Associated Diagnosis Comments SARS-COV-2 BY MOLECULAR Routine 05/20/2022 8:21 AM CDT Encounter for screening for COVID-19 documented in this encounter Results * SARS-COV-2 BY MOLECULAR (05/20/2022 8:21 AM CDT) SARSCOV2 NOT DETECTED (Referen ce Range for this test is Not Detected ) [facility] THERMOFISHER FAST DX 05/21/2022 6:15 AM CDT [facility] Comment:This test was perfor med by a RT-PCR method. Other Non-Phlebotomy Collection / Unknown 05/20/2022 8:21 AM CDT 05/20/2022 12:01 PM CDT Narrative [facility] - 05/21/2022 6:15 AM CDT Authorized Fact Sheets about this test for providers and patients are available at: https://www.fda.gov/medical-devices/kkcvoanyo-ssfwznhyms-ktnjmue-devices/emergen cy-us e-authorizations us Marcellus Chino MD MICROBIOLOGY - GENERAL ORDERAB LES Final Result [facility] [address] [place] [address], documented in this encounter Visit Diagnoses Diagnosis Encounter for screening for COVID-19 documented in this encounter Additional Health Concerns Infection Onset Date Last Indicated Resolved Time COVID - 19 01/21/2022 07/29/2022 08/08/2022 12:1 6 AM CLINICAL RESEARCH ASSOCIATE COVID - 19 09/23/2022 10/07/2022 10/08/2022 12:3 9 AM CLINICAL RESEARCH ASSOCIATE COVID - 19 Confirmed 10/07/2022 10/07/2022 02/07/2 023 12:16 AM CLINICAL RESEARCH ASSOCIATE documented as of this encounter Care Teams Electronic Parts Designer Relationship Specialty Start Date End Date Marcellus Chino MD [address] [facility] [address] [place] [address] PCP - General Family Medicine 09/24/21 documented as of this encounter
--- OUTSIDE RECORDS SUMMARY | 2025-04-24 09:14 | XMS_ITS | Encounter Summary ---
Author Organization [facility] Address [address] [facility] [place] [address] Phone Care Team Providers Care Gang Tailer Name Role Phone Marcellus Chino MD Primary Care Provider [phone] Encounter Details Date Type Department Care Team (Late st Contact Info) Description 06/10/2022 Lab Requisition [facility] Laboratory Services 1 [place] [address] Marcellus Chino MD [address] [place] [address] [address] [place] [address] Encounter for screening for COVID-19 Social History [...] st Contact Info) Description 10/04/2025 10:00 AM DRIVING SCHOOL INSTRUCTOR Office Visit [facility] - Cancer Center Oncology Services [address] [place] [address] Xi Ellison PAC 0 [place] [address] Discharge Disposition: Discharged to home or Selfcare documented as of this encounter Procedures Procedure Name Priority Date/Time Associated Diagnosis Comments SARS-COV-2 BY MOLECULAR Routine 06/10/2022 8:13 AM CDT Encounter for screening for COVID-19 documented in this encounter Results * SARS-COV-2 BY MOLECULAR (06/10/2022 8:13 AM CDT) SARSCOV2 NOT DETECTED (Referen ce Range for this test is Not Detected ) [facility] THERMOFISHER FAST DX 06/11/2022 10:23 AM CDT [facility] Comment:This test was perfor med by a RT-PCR method. Other No Phlebotomy Charged / Unknown 06/10/2022 8:13 AM CDT 06/10/2022 10:45 AM CDT Narrative [facility] - 06/11/2022 10:23 AM CDT Authorized Fact Sheets about this test for providers and patients are available at: https://www.fda.gov/medical-devices/qtmcgrqqu-hbgtumezji-jcjwjtq-devices/emergen -us e-authorizations us Marcellus Chino MD MICROBIOLOGY - GENERAL ORDERAB LES Final Result [facility] [address] [place] [address], documented in this encounter Visit Diagnoses Diagnosis Encounter for screening for COVID-19 documented in this encounter Additional Health Concerns Infection Onset Date Last Indicated Resolved Time COVID - 19 01/21/2022 07/29/2022 08/08/2022 12:1 6 AM DRIVING SCHOOL INSTRUCTOR COVID - 19 09/23/2022 10/07/2022 10/08/2022 12:3 9 AM DRIVING SCHOOL INSTRUCTOR COVID - 19 Confirmed 10/07/2022 10/07/2022 02/07/2 023 12:16 AM DRIVING SCHOOL INSTRUCTOR documented as of this encounter Care Teams Gang Tailer Relationship Specialty Start Date End Date Marcellus Chino MD [address] [facility] [address] [place] [address] PCP - General Family Medicine 09/24/21 documented as of this encounter
--- OUTSIDE RECORDS SUMMARY | 2025-04-24 09:14 | XMS_ITS | Encounter Summary ---
Author Organization [facility] Address [address] [facility] [place] [address] Phone Care Team Providers Care Customer Consulting Manager Name Role Phone Marcellus Chino MD Primary Care Provider [phone] Encounter Details Date Type Department Care Team (Late st Contact Info) Description 07/01/2022 Lab Requisition [facility] Services 1 [place] [address] Marcellus Chino MD [address] [place] [address] [address] [place] [address] Encounter for screening for COVID-19 Social History [...] st Contact Info) Description 10/04/2025 10:00 AM HERBICIDE SPRAYER Office Visit [facility] Services [address] [place] [address] Xi Ellison PAC 0 [place] [address] Discharge Disposition: Discharged to home or Selfcare documented as of this encounter Procedures Procedure Name Priority Date/Time Associated Diagnosis Comments SARS-COV-2 BY MOLECULAR Routine 07/01/2022 8:38 AM CDT Encounter for screening for COVID-19 documented in this encounter Results * SARS-COV-2 BY MOLECULAR (07/01/2022 8:38 AM CDT) SARSCOV2 NOT DETECTED (Referen ce Range for this test is Not Detected ) [facility] THERMOFISHER FAST DX 07/02/2022 12:18 AM CDT [facility] Comment:This test was perfor med by a RT-PCR method. Other Non-Phlebotomy Collection / Unknown 07/01/2022 8:38 AM CDT 07/01/2022 11:06 AM CDT Narrative [facility] - 07/02/2022 12:18 AM CDT Authorized Fact Sheets about this test for providers and patients are available at: https://www.fda.gov/medical-devices/orvonoalw-nriyenljcv-vsrnqty-devices/emergen cy-us e-authorizations us Marcellus Chino MD MICROBIOLOGY - GENERAL ORDERAB LES Final Result [facility] [address] [place] [address], documented in this encounter Visit Diagnoses Diagnosis Encounter for screening for COVID-19 documented in this encounter Additional Health Concerns Infection Onset Date Last Indicated Resolved Time COVID - 19 01/21/2022 07/29/2022 08/08/2022 12:1 6 AM HERBICIDE SPRAYER COVID - 19 09/23/2022 10/07/2022 10/08/2022 12:3 9 AM HERBICIDE SPRAYER COVID - 19 Confirmed 10/07/2022 10/07/2022 02/07/2 023 12:16 AM HERBICIDE SPRAYER documented as of this encounter Care Teams Customer Consulting Manager Relationship Specialty Start Date End Date Marcellus Chino MD [address] [facility] [address] [place] [address] PCP - General Family Medicine 09/24/21 documented as of this encounter
--- OUTSIDE RECORDS SUMMARY | 2025-04-24 09:14 | XMS_ITS | Encounter Summary ---
Author Organization [facility] Address [address] [place] [address] Phone Care Team Providers Care Cable Assembler Name Role Phone Marcellus Chino MD Primary Care Provider [phone] Encounter Details Date Type Department Care Team (Late st Contact Info) Description 07/28/2022 Nursing Facility [facility] [address] [place] [address] Noe Mcarthur MD [address] [place] [address] Social History Tobacco Use Types Packs/Day Years [...] on file Sexual Orientation Not on file COVID-19 Exposure Response Date Recorded In the last 10 days, have yo u been in contact with someone who was confirmed or suspected to have Coronavirus/COVID-19? No / Unsure 07/21/2022 7:09 PM CDT documented as of this encounter Last Filed Vital Signs Vital Sign Reading Time Taken Comments Blood Pressure 111/73 07/28/2022 3:24 PM PRODUCT MANAGER Pulse 102 07/28/2022 3:24 PM PRODUCT MANAGER Temperature 36.3 C (97.3 F) 07/28/2022 3:24 PM PRODUCT MANAGER Respiratory Rate 15 07/28/2022 3:24 PM PRODUCT MANAGER Oxygen Saturation - - Inhaled Oxygen Concentration - - Weight - - Height - - Body Mass Index - - documented in this encounter Plan of Treatment Upcoming Encounters Date Type Department Care Team (Late st Contact Info) Description 10/04/2025 10:00 AM PRODUCT MANAGER [facility] [address] [place] [address] Xi Ellison Linn, PAC [address] [place] [address] Discharge Disposition: Discharged to home or Selfcare documented as of this encounter Visit Diagnoses Not on filedocumented in this encounter Additional Health Concerns Infection Onset Date Last Indicated Resolved Time COVID - 19 01/21/2022 07/29/2022 08/08/2022 12:1 6 AM PRODUCT MANAGER COVID - 19 09/23/2022 10/07/2022 10/08/2022 12:3 9 AM PRODUCT MANAGER COVID - 19 Confirmed 10/07/2022 10/07/2022 023 12:16 AM PRODUCT MANAGER documented as of this encounter Care Teams Cable Assembler Relationship Specialty Start Date End Date Marcellus Chino MD [address] [facility] [address] [place] [address] PCP - General Family Medicine 09/24/21 documented as of this encounter
--- OUTSIDE RECORDS SUMMARY | 2025-04-24 09:14 | XMS_ITS | Encounter Summary ---
Author Organization [facility] Address [address] [facility] [place] [address] Phone Care Team Providers Care Washer Engineer Helper Name Role Phone Yadira Durbin MD Primary Care Provider [phone] Marcellus Chino MD Primary Care Provider [phone] Encounter Details Date Type Department Care Team (Late st Contact Info) Description 07/02/2021 Lab Requisition [facility] Laboratory Services 1 [place] [address] Marcellus Chino MD [address] [place] [address] Social History Tobacco Use Types Packs/Day Years [...] st Contact Info) Description 10/04/2025 10:00 AM BUSINESS SUPPORT Office Visit [facility] Oncology Services [address] [place] [phone] Xi Ellison Linn, PAC [address] [place] [address] Discharge Disposition: Discharged to home or Selfcare documented as of this encounter Procedures Procedure Name Priority Date/Time Associated Diagnosis Comments SARS-COV-2 BY MOLECULAR Routine 07/02/2021 8:34 AM CDT documented in this encounter Results * SARS-COV-2 BY MOLECULAR (07/02/2021 8:34 AM CDT) SARSCOV2 NOT DETECTED (Referen ce Range for this test is Not Detected ) [facility] THERMOFISHER FAST DX 07/03/2021 10:46 AM CDT [facility] Comment:This test was perfor med by a RT-PCR method. Other Non-Phlebotomy Collection / Unknown 07/02/2021 8:34 AM CDT 07/02/2021 10:40 AM CDT Narrative [facility] - 07/03/2021 10:46 AM CDT Authorized Fact Sheets about this test for providers and patients are available at: https://www.fda.gov/medical-devices/kjbsforpu-dmatwufslp-ydbukzk-devices/emergen -us e-authorizations us Marcellus Chino MD MICROBIOLOGY - GENERAL ORDERAB LES Final Result [facility] [address] [facility] [place] [address], documented in this encounter Visit Diagnoses Not on filedocumented in this encounter Additional Health Concerns Infection Onset Date Last Indicated Resolved Time COVID - 19 06/11/2021 10/15/2021 10/16/2021 9:00 AM BUSINESS SUPPORT COVID - 19 09/03/2021 09/10/2021 09/23/2021 12:1 6 AM BUSINESS SUPPORT COVID - 19 Confirmed 10/15/2021 10/15/2021 022 12:16 AM BUSINESS SUPPORT COVID - 19 10/29/2021 10/29/2021 11/18/2021 12:1 6 AM BUSINESS SUPPORT COVID - 19 12/31/2021 12/31/2021 01/20/2022 12:1 6 AM CDT COVID - 19 01/21/2022 07/29/2022 08/08/2022 12:1 6 AM BUSINESS SUPPORT COVID - 19 09/23/2022 10/07/2022 10/08/2022 12:3 9 AM BUSINESS SUPPORT COVID - 19 Confirmed 10/07/2022 10/07/2022 023 12:16 AM BUSINESS SUPPORT documented as of this encounter Care Teams Washer Engineer Helper Relationship Specialty Start Date End Date Yadira Durbin MD PCP - General Family Medicine 12/02/18 09/17/21 Marcellus Chino MD [address] [facility] [address] [facility][note 3] [place] [address] PCP - General Family Medicine 09/24/21 documented as of this encounter
--- OUTSIDE RECORDS SUMMARY | 2025-04-24 09:14 | XMS_ITS | Encounter Summary ---
Author Organization [facility] Address [address] [place] [address] Phone Care Team Providers Care Scalp Treatment Operator Name Role Phone Marcellus Chino MD Primary Care Provider [phone] Encounter Details Date Type Department Care Team (Late st Contact Info) Description 07/22/2022 Lab Requisition [facility] Laboratory Services 1 [place] [address] Marcellus Chino MD [address] [place] [address] [facility] [address] [place], [place] [id number] Encounter for screening for COVID-19 Social History [...] PM CDT documented as of this encounter Plan of Treatment Upcoming Encounters Date Type Department Care Team (Late st Contact Info) Description 10/04/2025 10:00 AM AIRLINE PILOT/FIRST OFFICER Office Visit [facility] Oncology Services [address] [place] [phone] Xi Ellison Linn, PAC [address] [place] [address] Discharge Disposition: Discharged to home or Selfcare documented as of this encounter Procedures Procedure Name Priority Date/Time Associated Diagnosis Comments SARS-COV-2 BY MOLECULAR Routine 07/22/2022 8:53 AM CDT Encounter for screening for COVID-19 documented in this encounter Results * SARS-COV-2 BY MOLECULAR (07/22/2022 8:53 AM CDT) SARSCOV2 NOT DETECTED (Referen ce Range for this test is Not Detected ) [facility] THERMOFISHER FAST DX 07/23/2022 9:34 AM CDT [facility] Comment:This test was perfor med by a RT-PCR method. Other Non-Phlebotomy Collection / Unknown 07/22/2022 8:53 AM CDT 07/22/2022 11:07 AM CDT Narrative [facility] - 07/23/2022 9:34 AM CDT Authorized Fact Sheets about this test for providers and patients are available at: https://www.fda.gov/medical-devices/ixywumhos-myboddscil-utaoihl-devices/emergen -us e-authorizations us Marcellus Chino MD MICROBIOLOGY - GENERAL ORDERAB LES Final Result [facility] [address] [place] [address], [place] documented in this encounter Visit Diagnoses Diagnosis Encounter for screening for COVID-19 documented in this encounter Additional Health Concerns Infection Onset Date Last Indicated Resolved Time COVID - 19 01/21/2022 07/29/2022 08/08/2022 12:1 6 AM AIRLINE PILOT/FIRST OFFICER COVID - 19 09/23/2022 10/07/2022 10/08/2022 12:3 9 AM AIRLINE PILOT/FIRST OFFICER COVID - 19 Confirmed 10/07/2022 10/07/2022 023 12:16 AM AIRLINE PILOT/FIRST OFFICER documented as of this encounter Care Teams Scalp Treatment Operator Relationship Specialty Start Date End Date Marcellus Chino MD [address] [facility] [address] [place] [address] PCP - General Family Medicine 09/24/21 documented as of this encounter
--- OUTSIDE RECORDS SUMMARY | 2025-04-24 09:14 | XMS_ITS | Encounter Summary ---
Author Organization [facility] Address [address] [place] [address] Phone Care Team Providers Care Watch Technician Name Role Phone Yadira Durbin MD Primary Care Provider [phone] Marcellus Chino MD Primary Care Provider [phone] Encounter Details Date Type Department Care Team (Late st Contact Info) Description 07/30/2021 Lab Requisition [facility] Laboratory Services 1 [place] [address] Marcellus Chino MD [address] [place] [address] Encounter for screening for COVID-19 Social History [...] st Contact Info) Description 10/04/2025 10:00 AM RESPIRATORY THERAPY ASSISTANT Office Visit [facility] Oncology Services [address] [place] [address] Xi Ellison Linn, PAC [address] [place] [address] Discharge Disposition: Discharged to home or Selfcare documented as of this encounter Procedures Procedure Name Priority Date/Time Associated Diagnosis Comments SARS-COV-2 BY MOLECULAR Routine 07/30/2021 8:18 AM RESPIRATORY THERAPY ASSISTANT Encounter for screening for COVID-19 documented in this encounter Results * SARS-COV-2 BY MOLECULAR (07/30/2021 8:18 AM RESPIRATORY THERAPY ASSISTANT) SARSCOV2 NOT DETECTED (Referen ce Range for this test is Not Detected ) [facility] THERMOFISHER FAST DX 07/31/2021 7:26 AM RESPIRATORY THERAPY ASSISTANT [facility] Comment:This test was perfor med by a RT-PCR method. Other Non-Phlebotomy Collection / Unknown 07/30/2021 8:18 AM RESPIRATORY THERAPY ASSISTANT 07/30/2021 11:13 AM RESPIRATORY THERAPY ASSISTANT Narrative [facility] - 07/31/2021 7:26 AM RESPIRATORY THERAPY ASSISTANT Authorized Fact Sheets about this test for providers and patients are available at: https://www.fda.gov/medical-devices/zvyrzvbub-errzunggvq-zilqlbw-devices/emergen -us e-authorizations us Marcellus Chino MD MICROBIOLOGY - GENERAL ORDERAB LES Final Result Performing Organization Address City/State/[facility] Co de Phone Number [facility] [address] [place] [address], documented in this encounter Visit Diagnoses Diagnosis Encounter for screening for COVID-19 documented in this encounter Additional Health Concerns Infection Onset Date Last Indicated Resolved Time COVID - 19 06/11/2021 10/15/2021 10/16/2021 9:00 AM RESPIRATORY THERAPY ASSISTANT COVID - 19 09/03/2021 09/10/2021 09/23/2021 12:1 6 AM RESPIRATORY THERAPY ASSISTANT COVID - 19 Confirmed 10/15/2021 10/15/2021 022 12:16 AM RESPIRATORY THERAPY ASSISTANT COVID - 10/29/2021 10/29/2021 11/18/2021 12:1 6 AM RESPIRATORY THERAPY ASSISTANT COVID - 19 12/31/2021 12/31/2021 01/20/2022 12:1 6 AM CDT COVID - 19 01/21/2022 07/29/2022 08/08/2022 12:1 6 AM RESPIRATORY THERAPY ASSISTANT COVID - 19 09/23/2022 10/07/2022 10/08/2022 12:3 9 AM RESPIRATORY THERAPY ASSISTANT COVID - 19 Confirmed 10/07/2022 10/07/2022 023 12:16 AM RESPIRATORY THERAPY ASSISTANT documented as of this encounter Care Teams Watch Technician Relationship Specialty Start Date End Date Yadira Durbin MD PCP - General Family Medicine 12/02/18 09/17/21 Marcellus Chino MD [address] [facility] [place] [address] PCP - General Family Medicine 09/24/21 documented as of this encounter
--- OUTSIDE RECORDS SUMMARY | 2025-04-24 09:14 | XMS_ITS | Encounter Summary ---
Author Organization [facility] Address [address] [facility] [place] [address] Phone Care Team Providers Care Infrastructure Analyst Name Role Phone Yadira Durbin MD Primary Care Provider [phone] Marcellus Chino MD Primary Care Provider [phone] Encounter Details Date Type Department Care Team (Late st Contact Info) Description 09/03/2021 Lab Requisition [facility] Laboratory Services 1 [place] [address] Marcellus Chino MD [address] [place] [address] Encounter for screening for COVID-19 Social History Tobacco Use Types Packs/Day Years Used Date Smoking Tobacco: Never Assessed AUDIT-C Answer Date Recorded Frequency of Alcohol [...] st Contact Info) Description 10/04/2025 10:00 AM LICENSED VOCATIONAL NURSE Office Visit [facility] Oncology Services [address] [place] [address] Xi Ellison February, [address] [place] [address] Discharge Disposition: Discharged to home or Selfcare documented as of this encounter Procedures Procedure Name Priority Date/Time Associated Diagnosis Comments SARS-COV-2 BY MOLECULAR Routine 09/03/2021 8:40 AM LICENSED VOCATIONAL NURSE Encounter for screening for COVID-19 documented in this encounter Results * SARS-COV-2 BY MOLECULAR (09/03/2021 8:40 AM LICENSED VOCATIONAL NURSE) SARSCOV2 NOT DETECTED (Referen ce Range for this test is Not Detected ) [facility] THERMOFISHER FAST DX 09/05/2021 8:04 AM LICENSED VOCATIONAL NURSE [facility] Comment:This test was perfor med by a RT-PCR method. Other No Phlebotomy Charged / Unknown 09/03/2021 8:40 AM LICENSED VOCATIONAL NURSE 09/03/2021 11:39 AM LICENSED VOCATIONAL NURSE Narrative [facility] - 09/05/2021 8:04 AM LICENSED VOCATIONAL NURSE Authorized Fact Sheets about this test for providers and patients are available at: https://www.fda.gov/medical-devices/nhbwdynxv-zyniwopihz-dsqxcqs-devices/emergen -us e-authorizations Marcellus Chino MD MICROBIOLOGY - GENERAL ORDERAB LES Final Result [facility] [address] [place] [address], documented in this encounter Visit Diagnoses Diagnosis Encounter for screening for COVID-19 documented in this encounter Additional Health Concerns Infection Onset Date Last Indicated Resolved Time COVID - 19 06/11/2021 10/15/2021 10/16/2021 9:00 AM LICENSED VOCATIONAL NURSE COVID - 19 09/03/2021 09/10/2021 09/23/2021 12:1 6 AM LICENSED VOCATIONAL NURSE COVID - 19 Confirmed 10/15/2021 10/15/2021 022 12:16 AM LICENSED VOCATIONAL NURSE COVID - 19 10/29/2021 10/29/2021 11/18/2021 12:1 6 AM LICENSED VOCATIONAL NURSE COVID - 12/31/2021 12/31/2021 01/20/2022 12:1 6 AM CDT COVID - 19 01/21/2022 07/29/2022 08/08/2022 12:1 6 AM LICENSED VOCATIONAL NURSE COVID - 19 09/23/2022 10/07/2022 10/08/2022 12:3 9 AM LICENSED VOCATIONAL NURSE COVID - 19 Confirmed 10/07/2022 10/07/2022 023 12:16 AM LICENSED VOCATIONAL NURSE documented as of this encounter Care Teams Infrastructure Analyst Relationship Specialty Start Date End Date Yadira Durbin MD PCP - General Family Medicine 12/02/18 09/17/21 Marcellus Chino MD [address] [place] [address] [place] [address] PCP - General Family Medicine 09/24/21 documented as of this encounter
--- OUTSIDE RECORDS SUMMARY | 2025-04-24 09:14 | XMS_ITS | Encounter Summary ---
Author Organization [facility] Address [address] [facility] [place] [address] Phone Care Team Providers Care Clinical Systems Educator Name Role Phone Yadira Durbin MD Primary Care Provider [phone] Marcellus Chino MD Primary Care Provider [phone] Encounter Details Date Type Department Care Team (Late st Contact Info) Description 08/27/2021 Lab Requisition [facility] Laboratory Services 1 [place] [address] Marcellus Chino MD [address] [place] [address] Encounter for screening for COVID-19 Social [...] st Contact Info) Description 10/04/2025 10:00 AM CITY SANITARIAN Office Visit [facility] Oncology Services [address] [place] [address] Xi Ellison Linn, PAC [address] [place] [address] Discharge Disposition: Discharged to home or Selfcare documented as of this encounter Procedures Procedure Name Priority Date/Time Associated Diagnosis Comments SARS-COV-2 BY MOLECULAR Routine 08/27/2021 8:28 AM CITY SANITARIAN Encounter for screening for COVID-19 documented in this encounter Results * SARS-COV-2 BY MOLECULAR (08/27/2021 8:28 AM CITY SANITARIAN) SARSCOV2 NOT DETECTED (Referen ce Range for this test is Not Detected ) [facility] THERMOFISHER FAST DX 08/28/2021 8:03 AM CITY SANITARIAN [facility] Comment:This test was perfor med by a RT-PCR method. Other No Phlebotomy Charged / Unknown 08/27/2021 8:28 AM CITY SANITARIAN 08/27/2021 11:09 AM CITY SANITARIAN Narrative [facility] - 08/28/2021 8:03 AM CITY SANITARIAN Authorized Fact Sheets about this test for providers and patients are available at: https://www.fda.gov/medical-devices/opguwfmme-lvrorzacxa-geusgud-devices/emergen -us e-authorizations us Marcellus Chino MD MICROBIOLOGY - GENERAL ORDERAB LES Final Result Performing Organization Address City/State/[facility] Co de Phone Number [facility] [address] [place] [address], documented in this encounter Visit Diagnoses Diagnosis Encounter for screening for COVID-19 documented in this encounter Additional Health Concerns Infection Onset Date Last Indicated Resolved Time COVID - 19 06/11/2021 10/15/2021 10/16/2021 9:00 AM CITY SANITARIAN COVID - 19 09/03/2021 09/10/2021 09/23/2021 12:1 6 AM CITY SANITARIAN COVID - 19 Confirmed 10/15/2021 10/15/2021 022 12:16 AM CITY SANITARIAN COVID - 19 10/29/2021 10/29/2021 11/18/2021 12:1 6 AM CITY SANITARIAN COVID - 19 12/31/2021 12/31/2021 01/20/2022 12:1 6 AM CDT COVID - 19 01/21/2022 07/29/2022 08/08/2022 12:1 6 AM CITY SANITARIAN COVID - 19 09/23/2022 10/07/2022 10/08/2022 12:3 9 AM CITY SANITARIAN COVID - 19 Confirmed 10/07/2022 10/07/2022 023 12:16 AM CITY SANITARIAN documented as of this encounter Care Teams Clinical Systems Educator Relationship Specialty Start Date End Date Yadira Durbin MD PCP - General Family Medicine 12/02/18 09/17/21 Marcellus Chino MD [address] [facility] [place] [address] PCP - General Family Medicine 09/24/21 documented as of this encounter
--- OUTSIDE RECORDS SUMMARY | 2025-04-24 09:14 | XMS_ITS | Encounter Summary ---
Author Organization [facility] Address [address] [facility] [place] [address] Phone Care Team Providers Care Cruise Consultant Name Role Phone Marcellus Chino MD Primary Care Provider [phone] Encounter Details Date Type Department Care Team (Late st Contact Info) Description 03/21/2025 Lab Requisition [facility] Laboratory Services 1 [place] [id number] Xi Ellison Linn, PAC [address] [place] [address] Iron deficiency anemia, unspecified Social History Tobacco Use Types Packs/Day [...] Encounters Date Type Department Care Team (Late Contact Info) Description 10/04/2025 10:00 AM MIXER WHIPPED TOPPING [facility] [address] [place] [phone] Ellison, Xife[place]ruary, [place] [address] Discharge Disposition: Discharged to home or Selfcare documented as of this encounter Procedures Procedure Name Priority Date/Time Associated Diagnosis Comments VITAMIN D, 25 HYDROXY TOTAL Routine 03/21/2025 6:35 AM CDT Iron deficiency anemia, unspecified IRON,TRANSFERN,CALC.T IBC,%SAT Routine 03/21/2025 6:35 AM CDT Iron deficiency anemia, unspecified CBC WITH AUTO DIFFERENTIAL Routine 03/21/2025 6:35 AM CDT Iron deficiency anemia, unspecified FOLIC ACID (FOLATE) Routine 03/21/2025 6 :35 AM CDT Iron deficiency anemia, unspecified FERRITIN Routine 03/21/2025 6:35 AM CDT Iron deficiency anemia, unspecified CMP (COMPREHENSIVE METABOLIC PANEL) Routine 03/21/2025 6:35 AM CDT Iron deficiency anemia, unspecified COMPLETE BLOOD COUNT (CBC) WITH DIFF Routine 03/21/2025 6:35 AM CDT Iron deficiency anemia, unspecified documented in this encounter Results * (ABNORMAL) CBC WITH AUTO DIFFERENTIAL (03/21/2025 6:35 AM CDT) WBC 6.12 4.00 - 12.00 10(3)/mcL 03/21/2025 8:43 AM CDT [facility] RBC 5.91(H) 4.40 - 5.80 10(6)/mcL 03/21/2025 8:43 AM CDT [facility] HEMOGLOBIN (HGB) 11.9(L) 13.0 - 16.5 g/dL 03/21/2025 8:43 AM CDT [facility] HEMATOCRIT (HCT) 38.5 38.0 - 50.0 % 03/21/2025 8:43 AM CDT [facility] MCV 65.1(L) 82.0 - 96.0 fL 03/21/2025 8:43 AM CDT [facility] MCH 20.1(L) 26.0 - 32.0 pg 03/21/2025 8:43 AM CDT [facility] MCHC 30.9(L) 31.0 - 36.0 g/dL 03/21/2025 8:43 AM CDT [facility] PLATELET COUNT 257 140 - 440 10(3)/mcL 03/21/2025 8:43 AM CDT [facility] RDW 17.3(H) 11.8 - 15.5 % 03/21/2025 8:43 AM CDT [facility] MPV 9.9 8.0 - 12.6 fL 03/21/2025 8:43 AM CDT [facility] NEUTROPHILS 43.4 40.0 - 68.0 % 03/21/2025 8:43 AM CDT [facility] LYMPHOCYTES 41.0 19.0 - 49.0 % 03/21/2025 8:43 AM CDT [facility] MONOCYTES 12.7 3.0 - 13.0 % 03/21/2025 8:43 AM CDT [facility] EOSINOPHILS 1.6 0.0 - 8.0 % 03/21/2025 8:43 AM CDT [facility] BASOPHILS 1.0 0.0 - 1.0 % 03/21/2025 8:43 AM CDT [facility] IMMATURE GRANULOCYTE 0.3 0.0 - 0.4 % 03/21/2025 8:43 AM CDT [facility] Comment:Immature Granulocyte s includes Metamyelocytes, Myelocytes, and Promyelocytes. ABSOLUTE NEUTROPHILS 2.65 1.40 - 5.30 10(3)/mcL 03/21/2025 8:43 AM CDT [facility] ABSOLUTE LYMPHOCYTES 2.51 0.90 - 3.30 10(3)/mcL 03/21/2025 8:43 AM CDT [facility] ABSOLUTE MONOCYTES 0.78 0.10 - 0.90 10(3)/mcL 03/21/2025 8:43 AM CDT [facility] ABSOLUTE EOSINOPHIL 0.10 0.00 - 0.50 10(3)/mcL 03/21/2025 8:43 AM CDT [facility] ABSOLUTE BASOPHILS 0.06 0.00 - 0.10 10(3)/mcL 03/21/2025 8:43 AM CDT [facility] ABSOLUTE IMMATURE GRANULOCYTE 0.02 0.00 - 0.03 10 (3) mcL. 03/21/2025 8:43 AM CDT [facility] NRBC PER 100 WBC 0 03/21/20 8:43 AM CDT [facility] RESULTS ARE CONSISTENT WITH PERIPHERAL SMEAR REVIEW Yes 03/21/2025 8:43 AM CDT [facility] RBC MORPHOLOGY CONSISTENT WITH INDICES Yes 03/21/2025 8:43 AM CDT [facility] POIKILOCYTOSIS 1+ 03/21/2025 8:43 AM CDT [facility] ELLIPTOCYTES Present 03/21/2025 8:43 AM CDT [facility] OVALOCYTES Present 03/21/2025 8:43 AM CDT [facility] POLYCHROMASIA 1+ 03/21/2025 8:43 AM CDT [facility] Blood Venipuncture / Unknown 03/21/2025 6:35 AM CDT 03/21/2025 7:17 AM CDT Narrative [facility] - 03/21/2025 8:43 AM CDT Anisocytosis Microcytosis us Xi Ellison PAC HEMATOLOGY ORDERABLES Fin al Result [facility] [address] [place] [address] * VITAMIN D, 25 HYDROXY TOTAL (03/21/2025 6:35 AM CDT) VITAMIN D, 25 HYDROX 29.2 ng/mL 03/21/2025 8:26 AM CDT [facility] Blood Venipuncture / Unknown 03/21/2025 6:35 AM CDT 03/21/2025 7:17 AM CDT Narrative [facility] - 03/21/2025 8:26 AM CDT Published reference ranges for Vitamin D vary depending on time and place and method of testing, and on patient's age, sex, ethnicity and levels of other measured analytes such as parathormone, calcium and phosphorus. The result should be evaluated in conjunction with clinical findings and suspicions. [employer] and [employer] Clinical Practice Guidelines: Status Vitamin D levels (ng/mL) Deficient <=20 At risk of inadequacy 21-29 Sufficient 30-100 Centers of Disease Control and Prevention Guidelines: Status Vitamin D levels (ng/mL) Deficient <13 At risk of inadequacy 13-19 Sufficient 20-50 Possibly harmful >50 References: [employer], 2010 Dietary reference intakes for calcium and vitamin D. [place]: The National Academies Press. Clinton M, Quinton N, Otis RUSSO, et al., Evaluation, treatment, and prevention of Vitamin D deficiency: an Endocrinology Clinical Practice Guideline. JCEM 2011 96: 7 5353-6330. Chichi A, Braxton C, Kris D, et al., Vitamin D Status: [place], 7803-5281, [facility] data brief, no. 59, MD [place]: National Center for Health Statistics. 2011. Xi Ellison PAC CHEMISTRY ORDERABLES Judith l Result [facility] [address] [place] [address] * (ABNORMAL) FERRITIN (03/21/2025 6:35 AM CDT) FERRITIN 872(H) 22 - 274 ng/mL 03/21/2025 8:12 AM CDT [facility] Blood Venipuncture / Unknown 03/21/2025 6:35 AM CDT 03/21/2025 7:17 AM CDT [facility] PAC CHEMISTRY ORDERABLES Judith l Result Performing Organization Address City/[facility]/ZIP Co de Phone Number [facility] [address] [place] [address] * FOLIC ACID (FOLATE) (03/21/2025 6:35 AM CDT) FOLATE 13.1 7.0 - 31.4 ng/mL 03/21/2025 8:26 AM CDT [facility] Blood Venipuncture / Unknown 03/21/2025 6:35 AM CDT 03/21/2025 7:17 AM CDT [facility] PAC CHEMISTRY ORDERABLES Judith l Result Performing Organization Address [facility]/[place] Co de Phone Number [facility] [address] [place] [address] * (ABNORMAL) IRON,TRANSFERN,CALC.TIBC,%SAT (03/21/2025 6:35 AM CDT) IRON 105 31 - 144 mcg/dL 03/21/2025 10:40 AM CDT [facility] TRANSFERRIN 189 174 - 364 mg/dL 03/21/2025 10:40 AM CDT [facility] TIBC, CALCULATED 236(L) 261 - 462 mcg/dL 03/21/2025 10:40 AM CDT [facility] % SATURATION * 44 15 - 62 % 03/21/2025 10:40 AM CDT [facility] Blood Venipuncture / Unknown 03/21/2025 6:35 AM CDT 03/21/2025 7:17 AM CDT [facility] PAC CHEMISTRY ORDERABLES Judith l Result Performing Organization Address City/[facility]/ZIP Co de Phone Number [facility] [address] [place] [address] * (ABNORMAL) CMP (COMPREHENSIVE METABOLIC PANEL) (03/21/2025 6:35 AM CDT) SODIUM 142 136 - 145 mmol/L 03/21/2025 7:56 AM CDT [facility] POTASSIUM 3.7 3.5 - 5.1 mmol/L 03/21/2025 7:56 AM CDT [facility] CHLORIDE 106 98 - 107 mmol/L 03/21/2025 7:56 AM CDT [facility] CO2, VENOUS 28 22 - 30 mmol/L 03/21/2025 7:56 AM CDT [facility] ANION GAP 11.7 <18.0 mmol/L 03/21/2025 7:56 AM CDT [facility] GLUCOSE 82 70 - 99 mg/dL 03/21/2025 7:56 AM CDT [facility] BUN 18 9 - 21 mg/dL 03/21/2025 7:56 AM CDT [facility] CREATININE, BLOOD 1.11 0.70 - 1.30 mg/dL 03/21/2025 7:56 AM CDT [facility] BUN/CREATININE RATIO 16 12 - 20 ratio 03/21/2025 7:56 AM CDT [facility] TOTAL PROTEIN 6.9 6.0 - 8.0 g/dL 03/21/2025 7:56 AM CDT [facility] ALBUMIN 3.9 3.5 - 5.0 g/dL 03/21/2025 7:56 AM CDT [facility] A/G RATIO 1.3 1.0 - 2.2 03/21/2025 7:56 AM CDT [facility] CALCIUM 8.5(L) 8.7 - 10.5 mg/dL 03/21/2025 7:56 AM CDT [facility] T BILI 0.6 0.2 - 1.2 mg/dL 03/21/2025 7:56 AM CDT [facility] SGOT (AST) 21 <43 U/L 03/21/2025 7:56 AM CDT [facility] SGPT (ALT) 18 <56 U/L 03/21/2025 7:56 AM CDT [facility] ALKALINE PHOSPHATASE 63 40 - 150 U/L 03/21/2025 7:56 AM CDT [facility] GFR, ESTIMATED >60 >=60 03/21/2025 7:56 AM CDT [facility] Comment: Creatinine Clearance is the preferred criteria for selecting drug dose adjustments in renally impaired patients. The GFR is provided as additional pertinent clinical information. GFR is reported in mL/min/1.73 sq m. Calculation based on the Chronic Kidney Disease Epidemiology Collaboration (CKD- EPI) equation refit without adjustment for race. GFR, EST. >60 >=60 025 7:56 AM CDT [facility] GFR, EST. NONAFRICAN >60 >=60 03/21/2025 7:56 AM CDT [facility] Blood Venipuncture / Unknown 03/21/2025 6:35 AM CDT 03/21/2025 7:17 AM CDT Xi Linn Ellison PAC CHEMISTRY ORDERABLES Judith l Result [facility] [address] [place] [address] documented in this encounter Visit Diagnoses Diagnosis Iron deficiency anemia, unspecified documented in this encounter Care Teams Cruise Consultant Relationship Specialty Start Date End Date Marcellus Chino MD [address] [facility] [place] [address] PCP - General Family Medicine 09/24/21 documented as of this encounter
--- OUTSIDE RECORDS SUMMARY | 2025-04-24 09:14 | XMS_ITS | Encounter Summary ---
Author Organization [facility] Address [address] [facility] [place] [address] Phone Care Team Providers Care Clinical Marketing Manager Name Role Phone Marcellus Chino MD Primary Care Provider [phone] Encounter Details Date Type Department Care Team (Late st Contact Info) Description 06/24/2022 Lab Requisition [facility] Laboratory Services 1 [place] [address] Marcellus Chino MD [address] [place] [address] [address] [place] [address] Encounter for screening for COVID-19 Social History [...] st Contact Info) Description 10/04/2025 10:00 AM HEATING FIXTURE TENDER Office Visit [facility] - [facility] Center Oncology Services [address] [place] [address] Xi Ellison PAC [address] [place] [address] Discharge Disposition: Discharged to home or Selfcare documented as of this encounter Procedures Procedure Name Priority Date/Time Associated Diagnosis Comments SARS-COV-2 BY MOLECULAR Routine 06/24/2022 8:47 AM CDT Encounter for screening for COVID-19 documented in this encounter Results * SARS-COV-2 BY MOLECULAR (06/24/2022 8:47 AM CDT) SARSCOV2 NOT DETECTED (Referen ce Range for this test is Not Detected ) [facility] THERMOFISHER FAST DX 06/25/2022 8:54 AM CDT [facility] Comment:This test was perfor med by a RT-PCR method. Other No Phlebotomy Charged / Unknown 06/24/2022 8:47 AM CDT 06/24/2022 1:16 PM CDT Narrative [facility] - 06/25/2022 8:54 AM CDT Authorized Fact Sheets about this test for providers and patients are available at: https://www.fda.gov/medical-devices/oxcvnluqv-hytczkqzfu-cmittzb-devices/emergen -us e-authorizations us Marcellus Chino MD MICROBIOLOGY - GENERAL ORDERAB LES Final Result [facility] [address] [place] [address], documented in this encounter Visit Diagnoses Diagnosis Encounter for screening for COVID-19 documented in this encounter Additional Health Concerns Infection Onset Date Last Indicated Resolved Time COVID - 19 01/21/2022 07/29/2022 08/08/2022 12:1 6 AM HEATING FIXTURE TENDER COVID - 19 09/23/2022 10/07/2022 10/08/2022 12:3 9 AM HEATING FIXTURE TENDER COVID - 19 Confirmed 10/07/2022 10/07/2022 02/07/2 023 12:16 AM HEATING FIXTURE TENDER documented as of this encounter Care Teams Clinical Marketing Manager Relationship Specialty Start Date End Date Marcellus Chino MD [address] [facility] [address] [place] [address] PCP - General Family Medicine 09/24/21 documented as of this encounter
--- OUTSIDE RECORDS SUMMARY | 2025-04-24 09:14 | XMS_ITS | Encounter Summary ---
Author Organization [facility] Address [address] [facility] [place] [address] Phone Care Team Providers Care Payroll Processor Name Role Phone Marcellus Chino MD Primary Care Provider [phone] Encounter Details Date Type Department Care Team (Late st Contact Info) Description 12/31/2021 Lab Requisition [facility] Laboratory Services 1 [place] [address] Marcellus Chino MD [address] [place] [address] [address] [place] [address] Encounter for screening for COVID-19 Social History [...] st Contact Info) Description 10/04/2025 10:00 AM GLAZE SUPERVISOR Office Visit [facility] Oncology Services [address] [place] [address] Xi Ellison PAC [address] [place] [address] Discharge Disposition: Discharged to home or Selfcare documented as of this encounter Procedures Procedure Name Priority Date/Time Associated Diagnosis Comments SARS-COV-2 BY MOLECULAR Routine 12/31/2021 8:51 AM CDT Encounter for screening for COVID-19 documented in this encounter Results * SARS-COV-2 BY MOLECULAR (12/31/2021 8:51 AM CDT) SARSCOV2 NOT DETECTED (Referen ce Range for this test is Not Detected ) [facility] THERMOFISHER FAST DX 01/01/2022 6:24 AM CDT [facility] Comment:This test was perfor med by a RT-PCR method. Other No Phlebotomy Charged / Unknown 12/31/2021 8:51 AM CDT 12/31/2021 1:05 PM CDT Narrative [facility] - 01/01/2022 6:24 AM CDT Authorized Fact Sheets about this test for providers and patients are available at: https://www.fda.gov/medical-devices/kuzxfztla-cmjqmddwab-zaicucj-devices/emergen -us e-authorizations us Marcellus Chino MD MICROBIOLOGY - GENERAL ORDERAB LES Final Result Performing Organization Address City/State/[facility] Co de Phone Number [facility] [address] [place] [address], documented in this encounter Visit Diagnoses Diagnosis Encounter for screening for COVID-19 documented in this encounter Additional Health Concerns Infection Onset Date Last Indicated Resolved Time COVID - 19 12/31/2021 12/31/2021 01/20/2022 12:1 6 AM CDT COVID - 19 01/21/2022 07/29/2022 08/08/2022 12:1 6 AM GLAZE SUPERVISOR COVID - 19 09/23/2022 10/07/2022 10/08/2022 12:3 9 AM GLAZE SUPERVISOR COVID - 19 Confirmed 10/07/2022 10/07/202210/27/ 023 12:16 AM GLAZE SUPERVISOR documented as of this encounter Care Teams Payroll Processor Relationship Specialty Start Date End Date Marcellus Chino MD [address] [facility] [address] [place] [address] PCP - General Family Medicine 09/24/21 documented as of this encounter
--- OUTSIDE RECORDS SUMMARY | 2025-04-24 09:14 | XMS_ITS | Encounter Summary ---
Author Organization [facility] Address [address] [facility] [place] [address] Phone Care Team Providers Care Manager Fashion Name Role Phone Marcellus Chino MD Primary Care Provider [phone] Encounter Details Date Type Department Care Team (Late st Contact Info) Description 10/15/2021 Lab Requisition [facility] Laboratory Services [address] [place] [address] Marcellus Chino MD [address] [place] [address] [address] [place] [address] Encounter for screening for COVID-19 Social History [...] st Contact Info) Description 10/04/2025 10:00 AM OIL PAINT SHADER Office Visit [facility] - Cancer Center Oncology Services [address] [place] [address] Xi Ellison PAC [address] [place] [address] Discharge Disposition: Discharged to home or Selfcare documented as of this encounter Procedures Procedure Name Priority Date/Time Associated Diagnosis Comments SARS-COV-2 BY MOLECULAR Routine 10/15/2021 7:56 AM OIL PAINT SHADER Encounter for screening for COVID-19 documented in this encounter Results * (ABNORMAL) SARS-COV-2 BY MOLECULAR (10/15/2021 7:56 AM OIL PAINT SHADER) SARSCOV2 DETECTED( A) (Referenc e Range for this test is Not Detected) [facility] THERMOFISHER FAST DX 10/16/2021 9:00 AM OIL PAINT SHADER [facility] Comment:This test was perfor med by a RT-PCR method. Other Non-Phlebotomy Collection / Unknown 10/15/2021 7:56 AM OIL PAINT SHADER 10/15/2021 10:59 AM OIL PAINT SHADER Narrative [facility] - 10/16/2021 9:00 AM OIL PAINT SHADER Authorized Fact Sheets about this test for providers and patients are available at: https://www.fda.gov/medical-devices/krnwhbzsw-caessynkeb-gaoyfhn-devices/emergen -us e-authorizations us Marcellus Chino MD MICROBIOLOGY - GENERAL ORDERAB LES Final Result Performing Organization Address City/State/[facility] Co de Phone Number [facility] [address] [place] [address], documented in this encounter Visit Diagnoses Diagnosis Encounter for screening for COVID-19 documented in this encounter Additional Health Concerns Infection Onset Date Last Indicated Resolved Time COVID - 19 06/11/2021 10/15/2021 10/16/2021 9:00 AM OIL PAINT SHADER COVID - 19 Confirmed 10/15/2021 10/15/2021 022 12:16 AM OIL PAINT SHADER COVID - 19 10/29/2021 10/29/2021 11/18/2021 12:1 6 AM OIL PAINT SHADER COVID - 19 12/31/2021 12/31/2021 01/20/2022 12:1 6 AM CDT COVID - 19 01/21/2022 07/29/2022 08/08/2022 12:1 6 AM OIL PAINT SHADER COVID - 19 09/23/2022 10/07/2022 10/08/2022 12:3 9 AM OIL PAINT SHADER COVID - 19 Confirmed 10/07/2022 10/07/2022 023 12:16 AM OIL PAINT SHADER documented as of this encounter Care Teams Manager Fashion Relationship Specialty Start Date End Date Marcellus Chino MD [address] [facility] [address] [place] [address] PCP - General Family Medicine 09/24/21 documented as of this encounter
--- OUTSIDE RECORDS SUMMARY | 2025-04-24 09:14 | XMS_ITS | Encounter Summary ---
Author Organization [facility] Address [address] [facility] [place] [address] Phone Care Team Providers Care Resource Director Name Role Phone Marcellus Chino MD Primary Care Provider [phone] Encounter Details Date Type Department Care Team (Late st Contact Info) Description 07/15/2022 Lab Requisition [facility] Laboratory Services [address] [place] [address] Marcellus Chino MD [address] [place] [address] [address] [place] [address] Encounter for screening for COVID-19 Social History [...] st Contact Info) Description 10/04/2025 10:00 AM AUDIO VISUAL ENGINEER Office Visit [facility] - Cancer Center Oncology Services [address] [place] [address] Xi Ellison PAC 0 [place] [address] Discharge Disposition: Discharged to home or Selfcare documented as of this encounter Procedures Procedure Name Priority Date/Time Associated Diagnosis Comments SARS-COV-2 BY MOLECULAR Routine 07/15/2022 8:43 AM CDT Encounter for screening for COVID-19 documented in this encounter Results * SARS-COV-2 BY MOLECULAR (07/15/2022 8:43 AM CDT) SARSCOV2 NOT DETECTED (Referen ce Range for this test is Not Detected ) [facility] THERMOFISHER FAST DX 07/16/2022 12:21 AM CDT [facility] Comment:This test was perfor med by a RT-PCR method. Other Non-Phlebotomy Collection / Unknown 07/15/2022 8:43 AM CDT 07/15/2022 11:44 AM CDT Narrative [facility] - 07/16/2022 12:21 AM CDT Authorized Fact Sheets about this test for providers and patients are available at: https://www.fda.gov/medical-devices/nrasrafts-ctwpjnindt-xjqugsj-devices/emergen cy-us e-authorizations us Marcellus Chino MD MICROBIOLOGY - GENERAL ORDERAB LES Final Result [facility] [address] [place] [address], documented in this encounter Visit Diagnoses Diagnosis Encounter for screening for COVID-19 documented in this encounter Additional Health Concerns Infection Onset Date Last Indicated Resolved Time COVID - 19 01/21/2022 07/29/2022 08/08/2022 12:1 6 AM AUDIO VISUAL ENGINEER COVID - 19 09/23/2022 10/07/2022 10/08/2022 12:3 9 AM AUDIO VISUAL ENGINEER COVID - 19 Confirmed 10/07/2022 10/07/2022/07/2 023 12:16 AM AUDIO VISUAL ENGINEER documented as of this encounter Care Teams Resource Director Relationship Specialty Start Date End Date Marcellus Chino MD [address] [facility] [address] [place] [address] PCP - General Family Medicine 09/24/21 documented as of this encounter
--- OUTSIDE RECORDS SUMMARY | 2025-04-24 09:14 | XMS_ITS | Encounter Summary ---
Author Organization [facility] Address [address] [facility] [place] [address] Phone Care Team Providers Care Area Field Worker Name Role Phone Marcellus Chino MD Primary Care Provider [phone] Encounter Details Date Type Department Care Team (Late st Contact Info) Description 05/27/2022 Lab Requisition [facility] Laboratory Services 1 [place] [address] Marcellus Chino MD [address] [place] [address] [address] [place] [address] Encounter for screening for COVID-19 Social History [...] st Contact Info) Description 10/04/2025 10:00 AM HOISTING ENGINE OPERATOR Office Visit [facility] - Cancer Center Oncology Services [address] [place] [address] Xi Ellison PAC [address] [place] [address] Discharge Disposition: Discharged to home or Selfcare documented as of this encounter Procedures Procedure Name Priority Date/Time Associated Diagnosis Comments SARS-COV-2 BY MOLECULAR Routine 05/27/2022 8:00 AM CDT Encounter for screening for COVID-19 documented in this encounter Results * SARS-COV-2 BY MOLECULAR (05/27/2022 8:00 AM CDT) SARSCOV2 NOT DETECTED (Referen ce Range for this test is Not Detected ) [facility] THERMOFISHER FAST DX 05/28/2022 8:21 AM CDT [facility] Comment:This test was perfor med by a RT-PCR method. Other COVID 19 Home Health/ [facility] Facility Collection / Unknown 05/27/2022 8:00 AM CDT 05/27/2022 2:07 PM CDT Narrative [facility] - 05/28/2022 8:21 AM CDT Authorized Fact Sheets about this test for providers and patients are available at: https://www.fda.gov/medical-devices/ksswwcyjs-dbytwtgaoy-rtuezwh-devices/emergen -us e-authorizations us Marcellus Chino MD MICROBIOLOGY - GENERAL ORDERAB LES Final Result [facility] [address] [facility] [place] [address], documented in this encounter Visit Diagnoses Diagnosis Encounter for screening for COVID-19 documented in this encounter Additional Health Concerns Infection Onset Date Last Indicated Resolved Time COVID - 19 01/21/2022 07/29/2022 08/08/2022 12:1 6 AM HOISTING ENGINE OPERATOR COVID - 19 09/23/2022 10/07/2022 10/08/2022 12:3 9 AM HOISTING ENGINE OPERATOR COVID - 19 Confirmed 10/07/2022 10/07/202210/27/2 023 12:16 AM HOISTING ENGINE OPERATOR documented as of this encounter Care Teams Area Field Worker Relationship Specialty Start Date End Date Marcellus Chino MD 4 [facility] [address] [place] [address] PCP - General Family Medicine 09/24/21 documented as of this encounter
--- OUTSIDE RECORDS SUMMARY | 2025-04-24 09:14 | XMS_ITS | Encounter Summary ---
Author Organization [facility] Address [address] [facility] [place] [address] Phone Care Team Providers Care Development Advisor Name Role Phone Marcellus Chino MD Primary Care Provider [phone] Encounter Details Date Type Department Care Team (Late st Contact Info) Description 06/17/2022 Lab Requisition [facility] Laboratory Services 1 [place] [address] Marcellus Chino MD [address] [place] [address] [address] [place] [address] Encounter for screening for COVID-19 Social History [...] st Contact Info) Description 10/04/2025 10:00 AM COLOR STRAINING BAG WASHER Office Visit [facility] - Cancer Center Oncology Services [address] [place] [address] Xi Ellison PAC 0 [place] [address] Discharge Disposition: Discharged to home or Selfcare documented as of this encounter Procedures Procedure Name Priority Date/Time Associated Diagnosis Comments SARS-COV-2 BY MOLECULAR Routine 06/17/2022 8:24 AM CDT Encounter for screening for COVID-19 documented in this encounter Results * SARS-COV-2 BY MOLECULAR (06/17/2022 8:24 AM CDT) SARSCOV2 NOT DETECTED (Referen ce Range for this test is Not Detected ) [facility] THERMOFISHER FAST DX 06/18/2022 12:09 AM CDT [facility] Comment:This test was perfor med by a RT-PCR method. Other Non-Phlebotomy Collection / Unknown 06/17/2022 8:24 AM CDT 06/17/2022 12:00 PM CDT Narrative [facility] - 06/18/2022 12:09 AM CDT Authorized Fact Sheets about this test for providers and patients are available at: https://www.fda.gov/medical-devices/afmqyoxwg-iqikvnbzyo-ubqgvad-devices/emergen cy-us e-authorizations us Macrellus Chino MD MICROBIOLOGY - GENERAL ORDERAB LES Final Result [facility] [address] [place] [address], documented in this encounter Visit Diagnoses Diagnosis Encounter for screening for COVID-19 documented in this encounter Additional Health Concerns Infection Onset Date Last Indicated Resolved Time COVID - 19 01/21/2022 07/29/2022 08/08/2022 12:1 6 AM COLOR STRAINING BAG WASHER COVID - 19 09/23/2022 10/07/2022 10/08/2022 12:3 9 AM COLOR STRAINING BAG WASHER COVID - 19 Confirmed 10/07/2022 10/07/2022 02/07/2 023 12:16 AM COLOR STRAINING BAG WASHER documented as of this encounter Care Teams Development Advisor Relationship Specialty Start Date End Date Marcellus Chino MD [address] [facility] [address] [place] [address] PCP - General Family Medicine 09/24/21 documented as of this encounter
--- OUTSIDE RECORDS SUMMARY | 2025-04-24 09:14 | XMS_ITS | Encounter Summary ---
Author Organization [facility] Address [address] [facility] [place] [address] Phone Care Team Providers Care Parking Lot Chauffeur Name Role Phone Marcellus Chino MD Primary Care Provider [phone] Encounter Details Date Type Department Care Team (Late st Contact Info) Description 09/30/2022 Lab Requisition [facility] Laboratory Services 1 [place] [address] Marcellus Chino MD [address] [place] [address] [address] [place] [address] Encounter for screening for COVID-19 Social History [...] st Contact Info) Description 10/04/2025 10:00 AM DIRECTOR PAID MEDIA Office Visit [facility] - Cancer Center Oncology Services [address] [place] [address] Xi Ellison PAC [address] [place] [address] Discharge Disposition: Discharged to home or Selfcare documented as of this encounter Procedures Procedure Name Priority Date/Time Associated Diagnosis Comments SARS-COV-2 BY MOLECULAR Routine 09/30/2022 8:42 AM DIRECTOR PAID MEDIA Encounter for screening for COVID-19 documented in this encounter Results * SARS-COV-2 BY MOLECULAR (09/30/2022 8:42 AM DIRECTOR PAID MEDIA) SARSCOV2 NOT DETECTED (Referen ce Range for this test is Not Detected ) [facility] THERMOFISHER FAST DX 09/30/2022 10:53 PM DIRECTOR PAID MEDIA [facility] Comment:This test was perfor med by a RT-PCR method. Other Non-Phlebotomy Collection / Unknown 09/30/2022 8:42 AM DIRECTOR PAID MEDIA 09/30/2022 10:57 AM DIRECTOR PAID MEDIA Narrative [facility] - 09/30/2022 10:53 PM DIRECTOR PAID MEDIA Authorized Fact Sheets about this test for providers and patients are available at: https://www.fda.gov/medical-devices/tobzltedq-tztisqfcba-ttozmuq-devices/emergen -us e-authorizations us Marcellus Chino MD MICROBIOLOGY - GENERAL ORDERAB LES Final Result [facility] [address] [place] [address], documented in this encounter Visit Diagnoses Diagnosis Encounter for screening for COVID-19 documented in this encounter Additional Health Concerns Infection Onset Date Last Indicated Resolved Time COVID - 19 09/23/2022 10/07/2022 10/08/2022 12:3 9 AM DIRECTOR PAID MEDIA COVID - 19 Confirmed 10/07/2022 10/07/2022//2 023 12:16 AM DIRECTOR PAID MEDIA documented as of this encounter Care Teams Parking Lot Chauffeur Relationship Specialty Start Date End Date Marcellus Chino MD [address] [facility] [address] [place] [address] PCP - General Family Medicine 09/24/21 documented as of this encounter
--- OUTSIDE RECORDS SUMMARY | 2025-04-24 09:14 | XMS_ITS | Encounter Summary ---
Author Organization [facility] Address [address] [facility] [place] [address] Phone Care Team Providers Care Crane Service Technician Name Role Phone Marcellus Chino MD Primary Care Provider [phone] Encounter Details Date Type Department Care Team (Late st Contact Info) Description 11/15/2024 Lab Requisition [facility] Laboratory Services 1 [place] [address] Marcellus Chino MD [address] [place] [address] [address] [place] [address] Hypothyroidism, unspecified; Mild intellectual disabilities; Disorder of [...] st Contact Info) Description 10/04/2025 10:00 AM TUG HAND Office Visit [facility] Cancer Center Oncology Services [address] [place] [address] Xi Ellison Linn, PAC [address] [place] [address] Discharge Disposition: Discharged to home or Selfcare documented as of this encounter Procedures Procedure Name Priority Date/Time Associated Diagnosis Comments URIC ACID (BLOOD ASSAY) Routine 11/15/2024 7:02 AM TUG HAND Hypothyroidism, unspecified Mild intellectual disabilities Disorder of the autonomic nervous system, unspecified documented in this encounter Results * URIC ACID (BLOOD ASSAY) (11/15/2024 7:02 AM TUG HAND) URIC ACID 6.3 3.7 - 7.7 mg/dL 11/15/2024 9:09 AM TUG HAND [facility] Blood Venipuncture / Unknown 11/15/2024 7:02 AM TUG HAND 11/15/2024 8:03 AM TUG HAND us Marcellus Chino MD CHEMISTRY ORDERABLES Final Res ult [facility] [place] [address] documented in this encounter Visit Diagnoses Diagnosis Hypothyroidism, unspecified Mild intellectual disabilities Disorder of the autonomic nervous system, unspecified documented in this encounter Care Teams Crane Service Technician Relationship Specialty Start Date End Date Marcellus Chino MD [address] [place] [address] [address] [place] [address] PCP - General Family Medicine 09/24/21 documented as of this encounter
--- OUTSIDE RECORDS SUMMARY | 2025-04-24 09:14 | XMS_ITS | Encounter Summary ---
Author Organization [facility] Address [address] [place] [address] Phone Care Team Providers Care Supervisor Statement Clerks Name Role Phone Marcellus Chino MD Primary Care Provider [phone] Encounter Details Date Type Department Care Team (Late st Contact Info) Description 07/29/2022 Lab Requisition [facility] Laboratory Services 1 [place] [address] Marcellus Chino MD [address] [place] [address] [facility] [address] [place], [place] [address] Encounter for screening for COVID-19 Social History [...] st Contact Info) Description 10/04/2025 10:00 AM NETWORK COMMUNICATIONS ENGINEER Office Visit [facility] Oncology Services [address] [place] [address] Xi Ellison Linn, PAC [address] [place] [address] Discharge Disposition: Discharged to home or Selfcare documented as of this encounter Procedures Procedure Name Priority Date/Time Associated Diagnosis Comments SARS-COV-2 BY MOLECULAR Routine 07/29/2022 9:50 AM NETWORK COMMUNICATIONS ENGINEER Encounter for screening for COVID-19 documented in this encounter Results * SARS-COV-2 BY MOLECULAR (07/29/2022 9:50 AM NETWORK COMMUNICATIONS ENGINEER) SARSCOV2 NOT DETECTED (Referen ce Range for this test is Not Detected ) [facility] THERMOFISHER FAST DX 07/30/2022 4:42 AM NETWORK COMMUNICATIONS ENGINEER [facility] Comment:This test was perfor med by a RT-PCR method. Other Non-Phlebotomy Collection / Unknown 07/29/2022 9:50 AM NETWORK COMMUNICATIONS ENGINEER 07/29/2022 11:12 AM NETWORK COMMUNICATIONS ENGINEER Narrative [facility] - 07/30/2022 4:42 AM NETWORK COMMUNICATIONS ENGINEER Authorized Fact Sheets about this test for providers and patients are available at: https://www.fda.gov/medical-devices/sevhltycz-jhlaqpugoi-mjfwrsc-devices/emergen -us e-authorizations us Marcellus Chino MD MICROBIOLOGY - GENERAL ORDERAB LES Final Result [facility] [address] [place] [address], [place] documented in this encounter Visit Diagnoses Diagnosis Encounter for screening for COVID-19 documented in this encounter Additional Health Concerns Infection Onset Date Last Indicated Resolved Time COVID - 19 01/21/2022 07/29/2022 08/08/2022 12:1 6 AM NETWORK COMMUNICATIONS ENGINEER COVID - 19 09/23/2022 10/07/2022 10/08/2022 12:3 9 AM NETWORK COMMUNICATIONS ENGINEER COVID - 19 Confirmed 10/07/2022 10/07/2022 023 12:16 AM NETWORK COMMUNICATIONS ENGINEER documented as of this encounter Care Teams Supervisor Statement Clerks Relationship Specialty Start Date End Date Marcellus Chino MD [address] [facility] [address] [place] [address] PCP - General Family Medicine 09/24/21 documented as of this encounter
--- OUTSIDE RECORDS SUMMARY | 2025-04-24 09:14 | XMS_ITS | Encounter Summary ---
Author Organization [facility] Address [address] [facility] [place] [address] Phone Care Team Providers Care Boat And Plant Utility Supervisor Name Role Phone Marcellus Chino MD Primary Care Provider [phone] Encounter Details Date Type Department Care Team (Late st Contact Info) Description 07/08/2022 Lab Requisition [facility] Laboratory Services 1 [place] [address] Marcellus Chino MD [address] [place] [address] [address] [place] [address] Encounter for screening for COVID-19 Social History [...] st Contact Info) Description 10/04/2025 10:00 AM INTERNATIONAL STUDENT COUNSELOR Office Visit [facility] - Cancer Center Oncology Services [address] [place] [address] Xi Ellison PAC 0 [place] [address] Discharge Disposition: Discharged to home or Selfcare documented as of this encounter Procedures Procedure Name Priority Date/Time Associated Diagnosis Comments SARS-COV-2 BY MOLECULAR Routine 07/08/2022 8:38 AM CDT Encounter for screening for COVID-19 documented in this encounter Results * SARS-COV-2 BY MOLECULAR (07/08/2022 8:38 AM CDT) SARSCOV2 NOT DETECTED (Referen ce Range for this test is Not Detected ) [facility] THERMOFISHER FAST DX 07/08/2022 11:59 PM CDT [facility] Comment:This test was perfor med by a RT-PCR method. Other Non-Phlebotomy Collection / Unknown 07/08/2022 8:38 AM CDT 07/08/2022 11:30 AM CDT Narrative [facility] - 07/08/2022 11:59 PM CDT Authorized Fact Sheets about this test for providers and patients are available at: https://www.fda.gov/medical-devices/uvtaceign-zkyaxqgwgh-efsfrxl-devices/emergen cy-us e-authorizations us Marcellus Chino MD MICROBIOLOGY - GENERAL ORDERAB LES Final Result [facility] [address] [place] [address], documented in this encounter Visit Diagnoses Diagnosis Encounter for screening for COVID-19 documented in this encounter Additional Health Concerns Infection Onset Date Last Indicated Resolved Time COVID - 19 01/21/2022 07/29/2022 08/08/2022 12:1 6 AM INTERNATIONAL STUDENT COUNSELOR COVID - 19 09/23/2022 10/07/2022 10/08/2022 12:3 9 AM INTERNATIONAL STUDENT COUNSELOR COVID - 19 Confirmed 10/07/2022 10/07/2022 02/07/2 023 12:16 AM INTERNATIONAL STUDENT COUNSELOR documented as of this encounter Care Teams Boat And Plant Utility Supervisor Relationship Specialty Start Date End Date Marcellus Chino MD [address] [facility] [address] [place] [address] PCP - General Family Medicine 09/24/21 documented as of this encounter
--- OUTSIDE RECORDS SUMMARY | 2025-04-24 09:14 | XMS_ITS | Encounter Summary ---
Author Organization [facility] Address [address] [facility] [place] [address] Phone Care Team Providers Care Engineer Sergeant Name Role Phone Marcellus Chino MD Primary Care Provider [phone] Encounter Details Date Type Department Care Team (Late st Contact Info) Description 05/13/2022 Lab Requisition [facility] Laboratory Services 1 [place] [address] Marcellus Chino MD [address] [place] [address] [address] [place] [address] Encounter for screening for COVID-19 Social History [...] st Contact Info) Description 10/04/2025 10:00 AM PAPER TESTER Office Visit [facility] - Cancer Center Oncology Services [address] [place] [address] Xi Ellison PAC 0 [place] [address] Discharge Disposition: Discharged to home or Selfcare documented as of this encounter Procedures Procedure Name Priority Date/Time Associated Diagnosis Comments SARS-COV-2 BY MOLECULAR Routine 05/13/2022 7:46 AM CDT Encounter for screening for COVID-19 documented in this encounter Results * SARS-COV-2 BY MOLECULAR (05/13/2022 7:46 AM CDT) SARSCOV2 NOT DETECTED (Referen ce Range for this test is Not Detected ) [facility] THERMOFISHER FAST DX 05/14/2022 8:39 AM CDT [facility] Comment:This test was perfor med by a RT-PCR method. Other Non-Phlebotomy Collection / Unknown 05/13/2022 7:46 AM CDT 05/13/2022 11:40 AM CDT Narrative [facility] - 05/14/2022 8:39 AM CDT Authorized Fact Sheets about this test for providers and patients are available at: https://www.fda.gov/medical-devices/dtluwttio-fgbkdirytr-egdgwnd-devices/emergen cy-us e-authorizations us Marcellus Chino MD MICROBIOLOGY - GENERAL ORDERAB LES Final Result [facility] [address] [place] [address], documented in this encounter Visit Diagnoses Diagnosis Encounter for screening for COVID-19 documented in this encounter Additional Health Concerns Infection Onset Date Last Indicated Resolved Time COVID - 19 01/21/2022 07/29/2022 08/08/2022 12:1 6 AM PAPER TESTER COVID - 19 09/23/2022 10/07/2022 10/08/2022 12:3 9 AM PAPER TESTER COVID - 19 Confirmed 10/07/2022 10/07/2022/07/2 023 12:16 AM PAPER TESTER documented as of this encounter Care Teams Engineer Sergeant Relationship Specialty Start Date End Date Marcellus Chino MD [address] [facility] [address] [place] [address] PCP - General Family Medicine 09/24/21 documented as of this encounter
--- OUTSIDE RECORDS SUMMARY | 2025-04-24 09:14 | XMS_ITS | Encounter Summary ---
Author Organization [facility] Address [address] [facility] [place] [address] Phone Care Team Providers Care Bottom Painter Name Role Phone Marcellus Chino MD Primary Care Provider [phone] Encounter Details Date Type Department Care Team (Late st Contact Info) Description 03/22/2025 Results Follow-Up [facility] Oncology Services [address] [place] [address] Xi Ellison Linn, PAC [address] [place] [address] CMP (COMPREHENSIVE METABOLIC PANEL), IRON,TRANSFERN,CALC. TIBC,%SAT, FOLIC ACID (FOLATE), Additional followed-up results: 3 Social History Tobacco Use Types Packs/Day Years [...] st Contact Info) Description 10/04/2025 10:00 AM LINOLEUM FLOOR LAYER Office Visit [facility] Oncology Services [address] [place] [address] Xi Ellison February, [place] [address] Discharge Disposition: Discharged to home or Selfcare documented as of this encounter Visit Diagnoses Not on filedocumented in this encounter Care Teams Bottom Painter Relationship Specialty Start Date End Date Marcellus Chino MD 4 [facility] [address] [place] [address] PCP - General Family Medicine 09/24/21 documented as of this encounter
--- OUTSIDE RECORDS SUMMARY | 2025-04-24 09:14 | XMS_ITS | Encounter Summary ---
Author Organization [facility] Address [address] [facility] [place] [address] Phone Care Team Providers Care Numerical Control Tool Programmer Name Role Phone Yadira Durbin MD Primary Care Provider [phone] Marcellus Chino MD Primary Care Provider [phone] Encounter Details Date Type Department Care Team (Late st Contact Info) Description 07/23/2021 Lab Requisition [facility] Laboratory Services 1 [place] [address] Marcellus Chino MD [address] [place] [address] Social History Tobacco Use Types Packs/Day [...] st Contact Info) Description 10/04/2025 10:00 AM MANAGER BUSINESS MANAGEMENT Office Visit [facility] - Cancer Center Oncology Services [address] [place] [address] Xi Ellison Linn, PAC [address] [place] [address] Discharge Disposition: Discharged to home or Selfcare documented as of this encounter Procedures Procedure Name Priority Date/Time Associated Diagnosis Comments SARS-COV-2 BY MOLECULAR Routine 07/23/2021 8:06 AM CDT documented in this encounter Results * SARS-COV-2 BY MOLECULAR (07/23/2021 8:06 AM CDT) SARSCOV2 NOT DETECTED (Referen ce Range for this test is Not Detected ) [facility] THERMOFISHER FAST DX 07/24/2021 9:18 AM CDT [facility] Comment:This test was perfor med by a RT-PCR method. Other No Phlebotomy Charged / Unknown 07/23/2021 8:06 AM CDT 07/23/2021 11:17 AM CDT Narrative [facility] - 07/24/2021 9:18 AM CDT Authorized Fact Sheets about this test for providers and patients are available at: https://www.fda.gov/medical-devices/dgkkpetjb-gnocueedqj-rmuwsdk-devices/emergen -us e-authorizations us Marcellus Chino MD MICROBIOLOGY - GENERAL ORDERAB LES Final Result [facility] [address] [place] [address], documented in this encounter Visit Diagnoses Not on filedocumented in this encounter Additional Health Concerns Infection Onset Date Last Indicated Resolved Time COVID - 19 06/11/2021 10/15/2021 10/16/2021 9:00 AM MANAGER BUSINESS MANAGEMENT COVID - 19 09/03/2021 09/10/2021 09/23/2021 12:1 6 AM MANAGER BUSINESS MANAGEMENT COVID - 19 Confirmed 10/15/2021 10/15/2021 022 12:16 AM MANAGER BUSINESS MANAGEMENT COVID - 19 10/29/2021 10/29/2021 11/18/2021 12:1 6 AM MANAGER BUSINESS MANAGEMENT COVID - 19 12/31/2021 12/31/2021 01/20/2022 12:1 6 AM CDT COVID - 19 01/21/2022 07/29/2022 08/08/2022 12:1 6 AM MANAGER BUSINESS MANAGEMENT COVID - 19 09/23/2022 10/07/2022 10/08/2022 12:3 9 AM MANAGER BUSINESS MANAGEMENT COVID - 19 Confirmed 10/07/2022 10/07/2022 023 12:16 AM MANAGER BUSINESS MANAGEMENT documented as of this encounter Care Teams Numerical Control Tool Programmer Relationship Specialty Start Date End Date Yadira Durbin MD PCP - General Family Medicine 12/02/18 09/17/21 Marcellus Chino MD [address] [facility] [place] [address] [place] [address] PCP - General Family Medicine 09/24/21 documented as of this encounter
--- OUTSIDE RECORDS SUMMARY | 2025-04-24 09:14 | XMS_ITS | Encounter Summary ---
Author Organization [facility] Address [address] [facility] [place] [address] Phone Care Team Providers Care Making Machine Catcher Name Role Phone Marcellus Chino MD Primary Care Provider [phone] Encounter Details Date Type Department Care Team (Late st Contact Info) Description 09/23/2022 Lab Requisition [facility] Laboratory Services 1 [place] [address] Marcellus Chino MD [address] [place] [address] [address] [place] [address] Encounter for screening for COVID-19 Social History [...] st Contact Info) Description 10/04/2025 10:00 AM BARREL REAMER Office Visit [facility] - Cancer Center Oncology Services [address] [place] [address] Xi Ellison PAC [address] [place] [address] Discharge Disposition: Discharged to home or Selfcare documented as of this encounter Procedures Procedure Name Priority Date/Time Associated Diagnosis Comments SARS-COV-2 BY MOLECULAR Routine 09/23/2022 8:35 AM BARREL REAMER Encounter for screening for COVID-19 documented in this encounter Results * SARS-COV-2 BY MOLECULAR (09/23/2022 8:35 AM BARREL REAMER) SARSCOV2 NOT DETECTED (Referen ce Range for this test is Not Detected ) [facility] THERMOFISHER FAST DX 09/23/2022 9:20 PM BARREL REAMER [facility] Comment:This test was perfor med by a RT-PCR method. Other No Phlebotomy Charged / Unknown 09/23/2022 8:35 AM BARREL REAMER 09/23/2022 10:08 AM BARREL REAMER Narrative [facility] - 09/23/2022 9:20 PM BARREL REAMER Authorized Fact Sheets about this test for providers and patients are available at: https://www.fda.gov/medical-devices/vudztitge-gcqpiekwdt-pjwmndr-devices/emergen -us e-authorizations Result [facility] Marcellus Chino MD MICROBIOLOGY - GENERAL ORDERAB LES Final Result Performing Organization Address City/State/[facility] Co de Phone Number [facility] [address] [place] [address], documented in this encounter Visit Diagnoses Diagnosis Encounter for screening for COVID-19 documented in this encounter Additional Health Concerns Infection Onset Date Last Indicated Resolved Time COVID - 19 09/23/2022 10/07/2022 10/08/2022 12:3 9 AM BARREL REAMER COVID - 19 Confirmed 10/07/2022 10/07/2022//2 023 12:16 AM BARREL REAMER documented as of this encounter Care Teams Making Machine Catcher Relationship Specialty Start Date End Date Marcellus Chino MD [address] [facility] [address] [place] [address] PCP - General Family Medicine 09/24/21 documented as of this encounter
--- OUTSIDE RECORDS SUMMARY | 2025-04-24 09:14 | XMS_ITS | Encounter Summary ---
Author Organization [facility] Address [address] [place] [address] Phone Care Team Providers Care Public Affairs Manager Name Role Phone Marcellus Chino MD Primary Care Provider [phone] Encounter Details Date Type Department Care Team (Late st Contact Info) Description 01/28/2022 Lab Requisition [facility] Laboratory Services 1 [place] [address] Marcellus Chino MD [address] [place] [address] [address] [place] [address] Encounter for screening for COVID-19 Social History [...] st Contact Info) Description 10/04/2025 10:00 AM HOMICIDE DETECTIVE Office Visit [facility] Oncology Services [address] [place] [address] Xi Ellison PAC 0 [place] [address] Discharge Disposition: Discharged to home or Selfcare documented as of this encounter Procedures Procedure Name Priority Date/Time Associated Diagnosis Comments SARS-COV-2 BY MOLECULAR Routine 01/28/2022 8:56 AM CDT Encounter for screening for COVID-19 documented in this encounter Results * SARS-COV-2 BY MOLECULAR (01/28/2022 8:56 AM CDT) SARSCOV2 NOT DETECTED (Referen ce Range for this test is Not Detected ) [facility] THERMOFISHER FAST DX 01/29/2022 10:12 AM CDT [facility] Comment:This test was perfor med by a RT-PCR method. Other Non-Phlebotomy Collection / Unknown 01/28/2022 8:56 AM CDT 01/28/2022 11:29 AM CDT Narrative [facility] - 01/29/2022 10:12 AM CDT Authorized Fact Sheets about this test for providers and patients are available at: https://www.fda.gov/medical-devices/xyrruuarn-ufdkfoxzaf-dhooxia-devices/emergen -us e-authorizations us Marcellus Chino MD MICROBIOLOGY - GENERAL ORDERAB LES Final Result [facility] [address] [place] [address], documented in this encounter Visit Diagnoses Diagnosis Encounter for screening for COVID-19 documented in this encounter Additional Health Concerns Infection Onset Date Last Indicated Resolved Time COVID - 19 01/21/2022 07/29/2022 08/08/2022 12:1 6 AM HOMICIDE DETECTIVE COVID - 19 09/23/2022 10/07/2022 10/08/2022 12:3 9 AM HOMICIDE DETECTIVE COVID - 19 Confirmed 10/07/2022 10/07/2022 02/07/2 023 12:16 AM HOMICIDE DETECTIVE documented as of this encounter Care Teams Public Affairs Manager Relationship Specialty Start Date End Date Marcellus Chino MD [address] [facility] [address] [place] [address] PCP - General Family Medicine 09/24/21 documented as of this encounter
--- OUTSIDE RECORDS SUMMARY | 2025-04-24 09:14 | XMS_ITS | Encounter Summary ---
Author Organization [facility] Address [address] [facility] [address] Phone Care Team Providers Care School Psychology Professor Name Role Phone Marcellus Chino MD Primary Care Provider [phone] Encounter Details Date Type Department Care Team (Late st Contact Info) Description 01/21/2022 Lab Requisition [facility] Laboratory Services 1 [place] [address] Marcellus Chino MD [address] [place] [address] [address] [place] [address] Encounter for screening for COVID-19 Social History [...] st Contact Info) Description 10/04/2025 10:00 AM DECK MOLDER Office Visit [facility] Oncology Services [address] [place] [address] Xi Ellison PAC 0 [place] [address] Discharge Disposition: Discharged to home or Selfcare documented as of this encounter Procedures Procedure Name Priority Date/Time Associated Diagnosis Comments SARS-COV-2 BY MOLECULAR Routine 01/21/2022 8:30 AM CDT Encounter for screening for COVID-19 documented in this encounter Results * SARS-COV-2 BY MOLECULAR (01/21/2022 8:30 AM CDT) SARSCOV2 NOT DETECTED (Referen ce Range for this test is Not Detected ) [facility] THERMOFISHER FAST DX 01/21/2022 11:33 PM CDT [facility] Comment:This test was perfor med by a RT-PCR method. Other Non-Phlebotomy Collection / Unknown 01/21/2022 8:30 AM CDT 01/21/2022 12:08 PM CDT Narrative [facility] - 01/21/2022 11:33 PM CDT Authorized Fact Sheets about this test for providers and patients are available at: https://www.fda.gov/medical-devices/gqmgedrld-kndnfpjxau-fdjfmul-devices/emergen cy-us e-authorizations us Marcellus Chino MD MICROBIOLOGY - GENERAL ORDERAB LES Final Result [facility] [address] [place] [address], documented in this encounter Visit Diagnoses Diagnosis Encounter for screening for COVID-19 documented in this encounter Additional Health Concerns Infection Onset Date Last Indicated Resolved Time COVID - 19 01/21/2022 07/29/2022 08/08/2022 12:1 6 AM DECK MOLDER COVID - 19 09/23/2022 10/07/2022 10/08/2022 12:3 9 AM DECK MOLDER COVID - 19 Confirmed 10/07/2022 10/07/2022 02/07/2 023 12:16 AM DECK MOLDER documented as of this encounter Care Teams School Psychology Professor Relationship Specialty Start Date End Date Marcellus Chino MD [address] [facility] [address] [place] [address] PCP - General Family Medicine 09/24/21 documented as of this encounter
--- OUTSIDE RECORDS SUMMARY | 2025-04-24 09:14 | XMS_ITS | Encounter Summary ---
Author Organization [facility] Address [address] [facility] [place] [address] Phone Care Team Providers Care Bilingual Student Tutor Name Role Phone Marcellus Chino MD Primary Care Provider [phone] Encounter Details Date Type Department Care Team (Late st Contact Info) Description 10/01/2021 Lab Requisition [facility] Laboratory Services 1 [place] [address] Marcellus Chino MD [address] [place] [address] [address] [place] [address] Encounter for screening for COVID-19 Social History [...] st Contact Info) Description 10/04/2025 10:00 AM SALES AGENT FOOD VENDING SERVICE Office Visit [facility] Oncology Services [address] [place] [address] Xi Ellison PAC [address] [place] [address] Discharge Disposition: Discharged to home or Selfcare documented as of this encounter Procedures Procedure Name Priority Date/Time Associated Diagnosis Comments SARS-COV-2 BY MOLECULAR Routine 10/01/2021 8:01 AM SALES AGENT FOOD VENDING SERVICE Encounter for screening for COVID-19 documented in this encounter Results * SARS-COV-2 BY MOLECULAR (10/01/2021 8:01 AM SALES AGENT FOOD VENDING SERVICE) SARSCOV2 NOT DETECTED (Referen ce Range for this test is Not Detected ) [facility] THERMOFISHER FAST DX 10/03/2021 10:53 AM SALES AGENT FOOD VENDING SERVICE [facility] Comment:This test was perfor med by a RT-PCR method. Other No Phlebotomy Charged / Unknown 10/01/2021 8:01 AM SALES AGENT FOOD VENDING SERVICE 10/01/2021 10:35 AM SALES AGENT FOOD VENDING SERVICE Narrative [facility] - 10/03/2021 10:53 AM SALES AGENT FOOD VENDING SERVICE Authorized Fact Sheets about this test for providers and patients are available at: https://www.fda.gov/medical-devices/vjcqlmfxt-hgrtboxsug-lngsisd-devices/emergen -us e-authorizations us Marcellus Chino MD MICROBIOLOGY - GENERAL ORDERAB LES Final Result Performing Organization Address City/State/[facility] Co de Phone Number [facility] [address] [place] [address], documented in this encounter Visit Diagnoses Diagnosis Encounter for screening for COVID-19 documented in this encounter Additional Health Concerns Infection Onset Date Last Indicated Resolved Time COVID - 19 06/11/2021 10/15/2021 10/16/2021 9:00 AM SALES AGENT FOOD VENDING SERVICE COVID - 19 Confirmed 10/15/2021 10/15/2021 022 12:16 AM SALES AGENT FOOD VENDING SERVICE COVID - 19 10/29/2021 10/29/2021 11/18/2021 12:1 6 AM SALES AGENT FOOD VENDING SERVICE COVID - 19 12/31/2021 12/31/2021 01/20/2022 12:1 6 AM CDT COVID - 19 01/21/2022 07/29/2022 08/08/2022 12:1 6 AM SALES AGENT FOOD VENDING SERVICE COVID - 19 09/23/2022 10/07/2022 10/08/2022 12:3 9 AM SALES AGENT FOOD VENDING SERVICE COVID - 19 Confirmed 10/07/2022 10/07/2022 023 12:16 AM SALES AGENT FOOD VENDING SERVICE documented as of this encounter Care Teams Bilingual Student Tutor Relationship Specialty Start Date End Date Marcellus Chino MD [address] [facility] [address] [place] [address] PCP - General Family Medicine 09/24/21 documented as of this encounter
--- OUTSIDE RECORDS SUMMARY | 2025-04-24 09:14 | XMS_ITS | Encounter Summary ---
Author Organization [facility] Address [address] [facility] [place] [address] Phone Care Team Providers Care Structural Test Engineer Name Role Phone Marcellus Chino MD Primary Care Provider [phone] Encounter Details Date Type Department Care Team (Late st Contact Info) Description 04/01/2022 Lab Requisition [facility] Laboratory Services 1 [place] [address] Marcellus Chino MD [address] [place] [address] [address] [place] [address] Encounter for screening for COVID-19 Social History [...] st Contact Info) Description 10/04/2025 10:00 AM ENGRAVING PATTERNMAKER Office Visit [facility] Oncology Services [address] [place] [address] Xi Ellison PAC 0 [place] [address] Discharge Disposition: Discharged to home or Selfcare documented as of this encounter Procedures Procedure Name Priority Date/Time Associated Diagnosis Comments SARS-COV-2 BY MOLECULAR Routine 04/01/2022 8:04 AM CDT Encounter for screening for COVID-19 documented in this encounter Results * SARS-COV-2 BY MOLECULAR (04/01/2022 8:04 AM CDT) SARSCOV2 NOT DETECTED (Referen ce Range for this test is Not Detected ) [facility] THERMOFISHER FAST DX 04/02/2022 10:49 AM CDT [facility] Comment:This test was perfor med by a RT-PCR method. Other Non-Phlebotomy Collection / Unknown 04/01/2022 8:04 AM CDT 04/01/2022 11:14 AM CDT Narrative [facility] - 04/02/2022 10:49 AM CDT Authorized Fact Sheets about this test for providers and patients are available at: https://www.fda.gov/medical-devices/oapiwuhgh-vyqdowhoif-wsouyfc-devices/emergen -us e-authorizations us Marcellus Chino MD MICROBIOLOGY - GENERAL ORDERAB LES Final Result [facility] [address] [place] [address], documented in this encounter Visit Diagnoses Diagnosis Encounter for screening for COVID-19 documented in this encounter Additional Health Concerns Infection Onset Date Last Indicated Resolved Time COVID - 19 01/21/2022 07/29/2022 08/08/2022 12:1 6 AM ENGRAVING PATTERNMAKER COVID - 19 09/23/2022 10/07/2022 10/08/2022 12:3 9 AM ENGRAVING PATTERNMAKER COVID - 19 Confirmed 10/07/2022 10/07/202210/27/2 023 12:16 AM ENGRAVING PATTERNMAKER documented as of this encounter Care Teams Structural Test Engineer Relationship Specialty Start Date End Date Marcellus Chino MD [address] [facility] [address] [place] [address] PCP - General Family Medicine 09/24/21 documented as of this encounter
--- OUTSIDE RECORDS SUMMARY | 2025-04-24 09:14 | XMS_ITS | Encounter Summary ---
Author Organization [facility] Address [address] [place] [address] Phone Care Team Providers Care Price Clerk Name Role Phone Yadira Durbin MD Primary Care Provider [phone] Marcellus Chino MD Primary Care Provider [phone] Encounter Details Date Type Department Care Team (Late st Contact Info) Description 09/10/2021 Lab Requisition [facility] Laboratory Services 1 [place] [address] Marcellus Chino MD [address] [place] [address] Encounter for screening for COVID-19 Social [...] st Contact Info) Description 10/04/2025 10:00 AM PHARMACIST AIDE Office Visit [facility] Oncology Services [address] [place] [address] Xi Ellison [place], PAC [address] [place] [address] Discharge Disposition: Discharged to home or Selfcare documented as of this encounter Procedures Procedure Name Priority Date/Time Associated Diagnosis Comments SARS-COV-2 BY MOLECULAR Routine 09/10/2021 8:13 AM PHARMACIST AIDE Encounter for screening for COVID-19 documented in this encounter Results * SARS-COV-2 BY MOLECULAR (09/10/2021 8:13 AM PHARMACIST AIDE) SARSCOV2 NOT DETECTED (Referen ce Range for this test is Not Detected ) [facility] THERMOFISHER FAST DX 09/14/2021 7:02 PM PHARMACIST AIDE [facility] Comment:This test was perfor med by a RT-PCR method. Other Non-Phlebotomy Collection / Unknown 09/10/2021 8:13 AM PHARMACIST AIDE 09/10/2021 11:14 AM PHARMACIST AIDE Narrative [facility] - 09/14/2021 7:02 PM PHARMACIST AIDE Authorized Fact Sheets about this test for providers and patients are available at: https://www.fda.gov/medical-devices/piglmtjzc-chdyujvjli-ivgspix-devices/emergen -us e-authorizations us Marcellus Chino MD MICROBIOLOGY - GENERAL ORDERAB LES Final Result Performing Organization Address City/State/[facility] Co de Phone Number [facility] [address] [address], documented in this encounter Visit Diagnoses Diagnosis Encounter for screening for COVID-19 documented in this encounter Additional Health Concerns Infection Onset Date Last Indicated Resolved Time COVID - 19 06/11/2021 10/15/2021 10/16/2021 9:00 AM PHARMACIST AIDE COVID - 19 09/03/2021 09/10/2021 09/23/2021 12:1 6 AM PHARMACIST AIDE COVID - 19 Confirmed 10/15/2021 10/15/2021 022 12:16 AM PHARMACIST AIDE COVID - 10/29/2021 10/29/2021 11/18/2021 12:1 6 AM PHARMACIST AIDE COVID - 19 12/31/2021 12/31/2021 01/20/2022 12:1 6 AM CDT COVID - 19 01/21/2022 07/29/2022 08/08/2022 12:1 6 AM PHARMACIST AIDE COVID - 19 09/23/2022 10/07/2022 10/08/2022 12:3 9 AM PHARMACIST AIDE COVID - 19 Confirmed 10/07/2022 10/07/2022 023 12:16 AM PHARMACIST AIDE documented as of this encounter Care Teams Price Clerk Relationship Specialty Start Date End Date Yadira Durbin MD PCP - General Family Medicine 12/02/18 09/17/21 Marcellus Chino MD [address] [facility] [place] [address] PCP - General Family Medicine 09/24/21 documented as of this encounter
--- OUTSIDE RECORDS SUMMARY | 2025-04-24 09:14 | XMS_ITS | Encounter Summary ---
Author Organization [facility] Address [address] [facility] [place] [address] Phone Care Team Providers Care Retread Technician Name Role Phone Marcellus Chino MD Primary Care Provider [phone] Encounter Details Date Type Department Care Team (Late st Contact Info) Description 10/29/2021 Lab Requisition [facility] Laboratory Services 1 [place] [address] Marcellus Chino MD [address] [place] [address] [address] [place] [address] Encounter for screening for COVID-19 Social History [...] Contact Info) Description 10/04/2025 10:00 AM MANAGER FINANCIAL Office Visit [facility] Oncology Services [address] [place] [address] Xi Ellison PAC [address] [place] [address] Discharge Disposition: Discharged to home or Selfcare documented as of this encounter Procedures Procedure Name Priority Date/Time Associated Diagnosis Comments SARS-COV-2 BY MOLECULAR Routine 10/29/2021 7:42 AM MANAGER FINANCIAL Encounter for screening for COVID-19 documented in this encounter Results * SARS-COV-2 BY MOLECULAR (10/29/2021 7:42 AM MANAGER FINANCIAL) SARSCOV2 NOT DETECTED (Referen ce Range for this test is Not Detected ) [facility] THERMOFISHER FAST DX 10/29/2021 11:48 PM MANAGER FINANCIAL [facility] Comment:This test was perfor med by a RT-PCR method. Other Non-Phlebotomy Collection / Unknown 10/29/2021 7:42 AM MANAGER FINANCIAL 10/29/2021 10:44 AM MANAGER FINANCIAL Narrative [facility] - 10/29/2021 11:48 PM MANAGER FINANCIAL Authorized Fact Sheets about this test for providers and patients are available at: https://www.fda.gov/medical-devices/zuvopohch-amvblewkia-ukqyzqb-devices/emergen cy-us e-authorizations us Marcellus Chino MD MICROBIOLOGY - GENERAL ORDERAB LES Final Result Performing Organization Address City/State/[facility] Co de Phone Number [facility] [address] [place] [address], documented in this encounter Visit Diagnoses Diagnosis Encounter for screening for COVID-19 documented in this encounter Additional Health Concerns Infection Onset Date Last Indicated Resolved Time COVID - 19 Confirmed 10/15/2021 10/15/202111/04/ 022 12:16 AM MANAGER FINANCIAL COVID - 19 10/29/2021 10/29/2021 11/18/2021 12:1 6 AM MANAGER FINANCIAL COVID - 19 12/31/2021 12/31/2021 01/20/2022 12:1 6 AM CDT COVID - 19 01/21/2022 07/29/2022 08/08/2022 12:1 6 AM MANAGER FINANCIAL COVID - 19 09/23/2022 10/07/2022 10/08/2022 12:3 9 AM MANAGER FINANCIAL COVID - 19 Confirmed 10/07/2022 10/07/2022 023 12:16 AM MANAGER FINANCIAL documented as of this encounter Care Teams Retread Technician Relationship Specialty Start Date End Date Marcellus Chino MD [address] [facility] [address] [place] [address] PCP - General Family Medicine 09/24/21 documented as of this encounter
--- OUTSIDE RECORDS SUMMARY | 2025-04-24 09:14 | XMS_ITS | Encounter Summary ---
Author Organization [facility] Address [address] [facility] [place] [address] Phone Care Team Providers Care Personal Caregiver Name Role Phone Marcellus Chino MD Primary Care Provider [phone] Encounter Details Date Type Department Care Team (Late st Contact Info) Description 06/03/[address] [facility] Laboratory Services 1 [place] [address] Marcellus Chino MD [address] [place] [address] [address] [place] [address] Encounter for screening for COVID-19 Social History [...] st Contact Info) Description 10/04/2025 10:00 AM REFRIGERATOR CRATER Office Visit [facility] Oncology Services [address] [place] [address] Xi Ellison PAC 0 [place] [address] Discharge Disposition: Discharged to home or Selfcare documented as of this encounter Procedures Procedure Name Priority Date/Time Associated Diagnosis Comments SARS-COV-2 BY MOLECULAR Routine 06/03/2022 7:50 AM CDT Encounter for screening for COVID-19 documented in this encounter Results * SARS-COV-2 BY MOLECULAR (06/03/2022 7:50 AM CDT) SARSCOV2 NOT DETECTED (Referen ce Range for this test is Not Detected ) [facility] THERMOFISHER FAST DX 06/03/2022 10:11 PM CDT [facility] Comment:This test was perfor med by a RT-PCR method. Other Non-Phlebotomy Collection / Unknown 06/03/2022 7:50 AM CDT 06/03/2022 10:02 AM CDT Narrative [facility] - 06/03/2022 10:11 PM CDT Authorized Fact Sheets about this test for providers and patients are available at: https://www.fda.gov/medical-devices/diyghmrhn-rkvinzqrad-lmlcdjp-devices/emergen cy-us e-authorizations us Marcellus Chino MD MICROBIOLOGY - GENERAL ORDERAB LES Final Result [facility] [address] [place] [address], documented in this encounter Visit Diagnoses Diagnosis Encounter for screening for COVID-19 documented in this encounter Additional Health Concerns Infection Onset Date Last Indicated Resolved Time COVID - 19 01/21/2022 07/29/2022 08/08/2022 12:1 6 AM REFRIGERATOR CRATER COVID - 19 09/23/2022 10/07/2022 10/08/2022 12:3 9 AM REFRIGERATOR CRATER COVID - 19 Confirmed 10/07/2022 10/07/202207/2 023 12:16 AM REFRIGERATOR CRATER documented as of this encounter Care Teams Personal Caregiver Relationship Specialty Start Date End Date Marcellus Chino MD [address] [facility] [address] [place] [address] PCP - General Family Medicine 09/24/21 documented as of this encounter
--- OUTSIDE RECORDS SUMMARY | 2025-04-24 09:14 | XMS_ITS | Encounter Summary ---
Author Organization [facility] Address [address] [facility] [place] [address] Phone Care Team Providers Care Room Service Bellhop Name Role Phone Yadira Durbin MD Primary Care Provider [phone] Marcellus Chino MD Primary Care Provider [phone] Encounter Details Date Type Department Care Team (Late st Contact Info) Description 08/20/2021 Lab Requisition [facility] Laboratory Services 1 [place] [address] Marcellus Chino MD [address] [place] [address] Social History Tobacco Use Types Packs/Day [...] st Contact Info) Description 10/04/2025 10:00 AM VISUAL MERCHANDISING DIRECTOR Office Visit [facility] Oncology Services [address] [place] [address] Xi Ellison Linn, PAC [address] [place] [address] Discharge Disposition: Discharged to home or Selfcare documented as of this encounter Procedures Procedure Name Priority Date/Time Associated Diagnosis Comments SARS-COV-2 BY MOLECULAR Routine 08/20/2021 8:01 AM VISUAL MERCHANDISING DIRECTOR documented in this encounter Results * SARS-COV-2 BY MOLECULAR (08/20/2021 8:01 AM VISUAL MERCHANDISING DIRECTOR) SARSCOV2 NOT DETECTED (Referen ce Range for this test is Not Detected ) [facility] THERMOFISHER FAST DX 08/20/2021 11:54 PM VISUAL MERCHANDISING DIRECTOR [facility] Comment:This test was perfor med by a RT-PCR method. Other Non-Phlebotomy Collection / Unknown 08/20/2021 8:01 AM VISUAL MERCHANDISING DIRECTOR 08/20/2021 10:33 AM VISUAL MERCHANDISING DIRECTOR Narrative [facility] - 08/20/2021 11:54 PM VISUAL MERCHANDISING DIRECTOR Authorized Fact Sheets about this test for providers and patients are available at: https://www.fda.gov/medical-devices/ayhgmkyty-zywbiyllhx-zasltrt-devices/emergen cy-us e-authorizations us Marcellus Chino MD MICROBIOLOGY - GENERAL ORDERAB LES Final Result [facility] [address] [place] [address], documented in this encounter Visit Diagnoses Not on filedocumented in this encounter Additional Health Concerns Infection Onset Date Last Indicated Resolved Time COVID - 19 06/11/2021 10/15/2021 10/16/2021 9:00 AM VISUAL MERCHANDISING DIRECTOR COVID - 19 09/03/2021 09/10/2021 09/23/2021 12:1 6 AM VISUAL MERCHANDISING DIRECTOR COVID - 19 Confirmed 10/15/2021 10/15/2021 022 12:16 AM VISUAL MERCHANDISING DIRECTOR COVID - 19 10/29/2021 10/29/2021 11/18/2021 12:1 6 AM VISUAL MERCHANDISING DIRECTOR COVID - 19 12/31/2021 12/31/2021 01/20/2022 12:1 6 AM CDT COVID - 19 01/21/2022 07/29/2022 08/08/2022 12:1 6 AM VISUAL MERCHANDISING DIRECTOR COVID - 19 09/23/2022 10/07/2022 10/08/2022 12:3 9 AM VISUAL MERCHANDISING DIRECTOR COVID - 19 Confirmed 10/07/2022 10/07/2022 023 12:16 AM VISUAL MERCHANDISING DIRECTOR documented as of this encounter Care Teams Room Service Bellhop Relationship Specialty Start Date End Date Yadira Durbin MD PCP - General Family Medicine 12/02/18 09/17/21 Marcellus Chino MD [address] [facility] [place] [address] PCP - General Family Medicine 09/24/21 documented as of this encounter
--- OUTSIDE RECORDS SUMMARY | 2025-04-24 09:14 | XMS_ITS | Encounter Summary ---
Author Organization [facility] Address [address] [facility] [place] [address] Phone Care Team Providers Care Art Gallery Internship Name Role Phone Marcellus Chino MD Primary Care Provider [phone] Encounter Details Date Type Department Care Team (Late st Contact Info) Description 04/22/[address] [facility] Laboratory Services 1 [place] [address] Marcellus Chino MD [address] [place] [address] [address] [place] [address] Encounter for screening for COVID-19 Social History [...] st Contact Info) Description 10/04/2025 10:00 AM GAS FITTER Office Visit [facility] Oncology Services [address] [place] [address] Xi Ellison PAC 0 [place] [address] Discharge Disposition: Discharged to home or Selfcare documented as of this encounter Procedures Procedure Name Priority Date/Time Associated Diagnosis Comments SARS-COV-2 BY MOLECULAR Routine 04/22/2022 8:42 AM CDT Encounter for screening for COVID-19 documented in this encounter Results * SARS-COV-2 BY MOLECULAR (04/22/2022 8:42 AM CDT) SARSCOV2 NOT DETECTED (Referen ce Range for this test is Not Detected ) [facility] THERMOFISHER FAST DX 04/23/2022 1:[address] [facility] Comment:This test was perfor med by a RT-PCR method. Other Non-Phlebotomy Collection / Unknown 04/22/2022 8:42 AM CDT 04/22/2022 12:[address] [facility] - 04/23/2022 1:01 PM CDT Authorized Fact Sheets about this test for providers and patients are available at: https://www.fda.gov/medical-devices/dloqfoste-yfjahdgmsp-ftieaaj-devices/emergen cy-us e-authorizations us Marcellus Chino MD MICROBIOLOGY - GENERAL ORDERAB LES Final Result [facility] [address] [place] [address], documented in this encounter Visit Diagnoses Diagnosis Encounter for screening for COVID-19 documented in this encounter Additional Health Concerns Infection Onset Date Last Indicated Resolved Time COVID - 19 01/21/2022 07/29/2022 08/08/2022 12:1 6 AM GAS FITTER COVID - 19 09/23/2022 10/07/2022 10/08/2022 12:3 9 AM GAS FITTER COVID - 19 Confirmed 10/07/2022 10/07/2022 02/07/2 023 12:16 AM GAS FITTER documented as of this encounter Care Teams Art Gallery Internship Relationship Specialty Start Date End Date Marcellus Chino MD [address] [place] [place] [address] PCP - General Family Medicine 09/24/21 documented as of this encounter
--- OUTSIDE RECORDS SUMMARY | 2025-04-24 09:14 | XMS_ITS | Encounter Summary ---
Author Organization [facility] Address [address] [facility] [place] [place] [address] Phone Care Team Providers Care Client Service Associate Name Role Phone Yadira Durbin MD Primary Care Provider [phone] Marcellus Chino MD Primary Care Provider [phone] Encounter Details Date Type Department Care Team (Late st Contact Info) Description 06/25/2021 Lab Requisition [facility] Laboratory Services 1 [place] [address] Marcellus Chino MD [address] [place] [address] Encounter for screening for COVID-19 Social [...] st Contact Info) Description 10/04/2025 10:00 AM CLOTH DYE RANGE OPERATOR Office Visit [facility] Oncology Services [address] [place] [address] Xi Ellison Linn, PAC [address] [place] [address] Discharge Disposition: Discharged to home or Selfcare documented as of this encounter Procedures Procedure Name Priority Date/Time Associated Diagnosis Comments SARS-COV-2 BY MOLECULAR Routine 06/25/2021 8:45 AM CDT Encounter for screening for COVID-19 documented in this encounter Results * SARS-COV-2 BY MOLECULAR (06/25/2021 8:45 AM CDT) SARSCOV2 NOT DETECTED (Referen ce Range for this test is Not Detected ) [facility] THERMOFISHER FAST DX 06/26/2021 6:22 AM CDT [facility] Comment:This test was perfor med by a RT-PCR method. Other Non-Phlebotomy Collection / Unknown 06/25/2021 8:45 AM CDT 06/25/2021 10:25 AM CDT Narrative [facility] - 06/26/2021 6:22 AM CDT Authorized Fact Sheets about this test for providers and patients are available at: https://www.fda.gov/medical-devices/uuvhrfuuk-fkenokrmej-sjnsvtw-devices/emergen cy-us e-authorizations us Marcellus Chino MD MICROBIOLOGY - GENERAL ORDERAB LES Final Result [facility] [address] [place] [address], documented in this encounter Visit Diagnoses Diagnosis Encounter for screening for COVID-19 documented in this encounter Additional Health Concerns Infection Onset Date Last Indicated Resolved Time COVID - 19 06/11/2021 10/15/2021 10/16/2021 9:00 AM CLOTH DYE RANGE OPERATOR COVID - 19 09/03/2021 09/10/2021 09/23/2021 12:1 6 AM CLOTH DYE RANGE OPERATOR COVID - 19 Confirmed 10/15/2021 10/15/2021 022 12:16 AM CLOTH DYE RANGE OPERATOR COVID - 19 10/29/2021 10/29/2021 11/18/2021 12:1 6 AM CLOTH DYE RANGE OPERATOR COVID - 19 12/31/2021 12/31/2021 01/20/2022 12:1 6 AM CDT COVID - 19 01/21/2022 07/29/2022 08/08/2022 12:1 6 AM CLOTH DYE RANGE OPERATOR COVID - 19 09/23/2022 10/07/2022 10/08/2022 12:3 9 AM CLOTH DYE RANGE OPERATOR COVID - 19 Confirmed 10/07/2022 10/07/2022 023 12:16 AM CLOTH DYE RANGE OPERATOR documented as of this encounter Care Teams Client Service Associate Relationship Specialty Start Date End Date Yadira Durbin MD PCP - General Family Medicine 12/02/18 09/17/21 Marcellus Chino MD [address] [facility] [place] [address] PCP - General Family Medicine 09/24/21 documented as of this encounter
--- OUTSIDE RECORDS SUMMARY | 2025-04-24 09:14 | XMS_ITS | Encounter Summary ---
Author Organization [facility] Address [address] [facility] [place] [address] Phone Care Team Providers Care Barrel Drainer Name Role Phone Marcellus Chino MD Primary Care Provider [phone] Encounter Details Date Type Department Care Team (Late st Contact Info) Description 10/07/2022 Lab Requisition [facility] Laboratory Services 1 [place] [address] Marcellus Chino MD [address] [place] [address] [address] [place] [address] Encounter for screening for COVID-19 Social History [...] st Contact Info) Description 10/04/2025 10:00 AM BOTTLE WASHER MACHINE Office Visit [facility] Oncology Services [address] [place] [address] Xi Ellison PAC [address] [place] [address] Discharge Disposition: Discharged to home or Selfcare documented as of this encounter Procedures Procedure Name Priority Date/Time Associated Diagnosis Comments SARS-COV-2 BY MOLECULAR Routine 10/07/2022 8:05 AM BOTTLE WASHER MACHINE Encounter for screening for COVID-19 documented in this encounter Results * (ABNORMAL) SARS-COV-2 BY MOLECULAR (10/07/2022 8:05 AM BOTTLE WASHER MACHINE) SARSCOV2 DETECTED( A) (Referenc e Range for this test is Not Detected) [facility] THERMOFISHER FAST DX 10/08/2022 12:39 AM BOTTLE WASHER MACHINE [facility] Comment:This test was perfor med by a RT-PCR method. Other Non-Phlebotomy Collection / Unknown 10/07/2022 8:05 AM BOTTLE WASHER MACHINE 10/07/2022 11:50 AM BOTTLE WASHER MACHINE Narrative [facility] - 10/08/2022 12:39 AM BOTTLE WASHER MACHINE Authorized Fact Sheets about this test for providers and patients are available at: https://www.fda.gov/medical-devices/zrayqbtvs-qlriwafudh-auqpjek-devices/emergen -us e-authorizations us Marcellus Chino MD MICROBIOLOGY - GENERAL ORDERAB LES Final Result [facility] [address] [facility] [place] [address], documented in this encounter Visit Diagnoses Diagnosis Encounter for screening for COVID-19 documented in this encounter Additional Health Concerns Infection Onset Date Last Indicated Resolved Time COVID - 19 09/23/2022 10/07/2022 10/08/2022 12:3 9 AM BOTTLE WASHER MACHINE COVID - 19 Confirmed 10/07/2022 10/07/2022//2 023 12:16 AM BOTTLE WASHER MACHINE documented as of this encounter Care Teams Barrel Drainer Relationship Specialty Start Date End Date Marcellus Chino MD [address] [place] [address] PCP - General Family Medicine 09/24/21 documented as of this encounter
--- OUTSIDE RECORDS SUMMARY | 2025-04-24 09:14 | XMS_ITS | Encounter Summary ---
Author Organization [facility] Address [address] [facility] [place] [address] Phone Care Team Providers Care Cabin Worker Name Role Phone Marcellus Chino MD Primary Care Provider [phone] Encounter Details Date Type Department Care Team (Late st Contact Info) Description 09/24/2021 Lab Requisition [facility] Laboratory Services 1 [place] [address] Marcellus Chino MD [address] [place] [address] [address] [place] [address] Encounter for screening for COVID-19 Social History [...] st Contact Info) Description 10/04/2025 10:00 AM LITIGATION CLAIM REPRESENTATIVE Office Visit [facility] Oncology Services [address] [place] [address] Xi Ellison PAC [address] [place] [address] Discharge Disposition: Discharged to home or Selfcare documented as of this encounter Procedures Procedure Name Priority Date/Time Associated Diagnosis Comments SARS-COV-2 BY MOLECULAR Routine 09/24/2021 8:34 AM LITIGATION CLAIM REPRESENTATIVE Encounter for screening for COVID-19 documented in this encounter Results * SARS-COV-2 BY MOLECULAR (09/24/2021 8:34 AM LITIGATION CLAIM REPRESENTATIVE) SARSCOV2 NOT DETECTED (Referen ce Range for this test is Not Detected ) [facility] THERMOFISHER FAST DX 09/26/2021 6:02 PM LITIGATION CLAIM REPRESENTATIVE [facility] Comment:This test was perfor med by a RT-PCR method. Other Non-Phlebotomy Collection / Unknown 09/24/2021 8:34 AM LITIGATION CLAIM REPRESENTATIVE 09/24/2021 12:07 PM LITIGATION CLAIM REPRESENTATIVE Narrative [facility] - 09/26/2021 6:02 PM LITIGATION CLAIM REPRESENTATIVE Authorized Fact Sheets about this test for providers and patients are available at: https://www.fda.gov/medical-devices/usmdvngpa-zrtmenrzmi-rsunzzy-devices/emergen cy-us e-authorizations us Marcellus Chino MD MICROBIOLOGY - GENERAL ORDERAB LES Final Result Performing Organization Address City/State/[facility] Co de Phone Number [facility] [address] [place] [address], documented in this encounter Visit Diagnoses Diagnosis Encounter for screening for COVID-19 documented in this encounter Additional Health Concerns Infection Onset Date Last Indicated Resolved Time COVID - 19 06/11/2021 10/15/2021 10/16/2021 9:00 AM LITIGATION CLAIM REPRESENTATIVE COVID - 19 Confirmed 10/15/2021 10/15/2021 022 12:16 AM LITIGATION CLAIM REPRESENTATIVE COVID - 19 10/29/2021 10/29/2021 11/18/2021 12:1 6 AM LITIGATION CLAIM REPRESENTATIVE COVID - 19 12/31/2021 12/31/2021 01/20/2022 12:1 6 AM CDT COVID - 19 01/21/2022 07/29/2022 08/08/2022 12:1 6 AM LITIGATION CLAIM REPRESENTATIVE COVID - 19 09/23/2022 10/07/2022 10/08/2022 12:3 9 AM LITIGATION CLAIM REPRESENTATIVE COVID - 19 Confirmed 10/07/2022 10/07/2022 023 12:16 AM LITIGATION CLAIM REPRESENTATIVE documented as of this encounter Care Teams Cabin Worker Relationship Specialty Start Date End Date Marcellus Chino MD [address] [facility] [address] [place] [address] PCP - General Family Medicine 09/24/21 documented as of this encounter
--- OUTSIDE RECORDS SUMMARY | 2025-04-24 09:14 | XMS_ITS | Encounter Summary ---
Author Organization [facility] Address [address] [facility] [place] [address] Phone Care Team Providers Care Rn Mds Name Role Phone Yadira Durbni MD Primary Care Provider [phone] Marcellus Chino MD Primary Care Provider [phone] Encounter Details Date Type Department Care Team (Late st Contact Info) Description 08/06/[address] [facility] Laboratory Services 1 [place] [address] Marcellus Chino MD [address] [place] [address] Encounter for screening for COVID-19 Social [...] st Contact Info) Description 10/04/2025 10:00 AM TRANSITIONS RN CARE COORDINATOR Office Visit [facility] Oncology Services [address] [place] [address] Xi Ellison Linn, PAC [address] [place] [address] Discharge Disposition: Discharged to home or Selfcare documented as of this encounter Procedures Procedure Name Priority Date/Time Associated Diagnosis Comments SARS-COV-2 BY MOLECULAR Routine 08/06/2021 8:32 AM TRANSITIONS RN CARE COORDINATOR Encounter for screening for COVID-19 documented in this encounter Results * SARS-COV-2 BY MOLECULAR (08/06/2021 8:32 AM TRANSITIONS RN CARE COORDINATOR) SARSCOV2 NOT DETECTED (Referen ce Range for this test is Not Detected ) [facility] THERMOFISHER FAST DX 08/07/2021 8:54 AM TRANSITIONS RN CARE COORDINATOR [facility] Comment:This test was perfor med by a RT-PCR method. Other Non-Phlebotomy Collection / Unknown 08/06/2021 8:32 AM TRANSITIONS RN CARE COORDINATOR 08/06/2021 11:10 AM TRANSITIONS RN CARE COORDINATOR Narrative [facility] - 08/07/2021 8:54 AM TRANSITIONS RN CARE COORDINATOR Authorized Fact Sheets about this test for providers and patients are available at: https://www.fda.gov/medical-devices/rykvthavf-cwycppsgqx-uaduhay-devices/emergen -us e-authorizations us Marcellus Chino MD MICROBIOLOGY - GENERAL ORDERAB LES Final Result Performing Organization Address City/State/[facility] Co de Phone Number [facility] [address] [place] [address], documented in this encounter Visit Diagnoses Diagnosis Encounter for screening for COVID-19 documented in this encounter Additional Health Concerns Infection Onset Date Last Indicated Resolved Time COVID - 19 06/11/2021 10/15/2021 10/16/2021 9:00 AM TRANSITIONS RN CARE COORDINATOR COVID - 19 09/03/2021 09/10/2021 09/23/2021 12:1 6 AM TRANSITIONS RN CARE COORDINATOR COVID - 19 Confirmed 10/15/2021 10/15/2021 022 12:16 AM TRANSITIONS RN CARE COORDINATOR COVID - 10/29/2021 10/29/2021 11/18/2021 12:1 6 AM TRANSITIONS RN CARE COORDINATOR COVID - 19 12/31/2021 12/31/2021 01/20/2022 12:1 6 AM CDT COVID - 19 01/21/2022 07/29/2022 08/08/2022 12:1 6 AM TRANSITIONS RN CARE COORDINATOR COVID - 19 09/23/2022 10/07/2022 10/08/2022 12:3 9 AM TRANSITIONS RN CARE COORDINATOR COVID - 19 Confirmed 10/07/2022 10/07/2022 023 12:16 AM TRANSITIONS RN CARE COORDINATOR documented as of this encounter Care Teams Rn Mds Relationship Specialty Start Date End Date Yadira Durbin MD PCP - General Family Medicine 12/02/18 09/17/21 Marcellus Chino MD [address] [facility] [place] [address] PCP - General Family Medicine 09/24/21 documented as of this encounter
--- OUTSIDE RECORDS SUMMARY | 2025-04-24 09:14 | XMS_ITS | Encounter Summary ---
Author Organization [facility] Address [address] [facility] [place] [address] Phone Care Team Providers Care Fundraising Sale Representative Name Role Phone Marcellus Chino MD Primary Care Provider [phone] Encounter Details Date Type Department Care Team (Late st Contact Info) Description 05/06/2022 Lab Requisition [facility] Laboratory Services 1 [place] [address] Marcellus Chino MD [address] [place] [address] [address] [place] [address] Encounter for screening for COVID-19 Social History [...] st Contact Info) Description 10/04/2025 10:[address] ADVOCATE Office Visit [facility] Oncology Services [address] [place] [address] Xi Ellison PAC 0 [place] [address] Discharge Disposition: Discharged to home or Selfcare documented as of this encounter Procedures Procedure Name Priority Date/Time Associated Diagnosis Comments SARS-COV-2 BY MOLECULAR Routine 05/06/2022 8:23 AM CDT documented in this encounter Results * SARS-COV-2 BY MOLECULAR (05/06/2022 8:23 AM CDT) SARSCOV2 NOT DETECTED (Referen ce Range for this test is Not Detected ) [facility] THERMOFISHER FAST DX 05/07/2022 8:15 AM CDT [facility] Comment:This test was perfor med by a RT-PCR method. Other Non-Phlebotomy Collection / Unknown 05/06/2022 8:23 AM CDT 05/06/2022 12:57 PM CDT Narrative [facility] - 05/07/2022 8:15 AM CDT Authorized Fact Sheets about this test for providers and patients are available at: https://www.fda.gov/medical-devices/apslcjekt-mpthudgvan-wmcvzoq-devices/emergen -us e-authorizations us Marcellus Chino MD MICROBIOLOGY - GENERAL ORDERAB LES Final Result [facility] [address] [place] [address], documented in this encounter Visit Diagnoses Diagnosis Encounter for screening for COVID-19 documented in this encounter Additional Health Concerns Infection Onset Date Last Indicated Resolved Time COVID - 19 01/21/2022 07/29/2022 08/08/2022 12:[address] ADVOCATE COVID - 19 09/23/2022 10/07/2022 10/08/2022 12:[address] ADVOCATE COVID - 19 Confirmed 10/07/2022 10/07/2022 02/07/2 023 12:[address] ADVOCATE documented as of this encounter Care Teams Fundraising Sale Representative Relationship Specialty Start Date End Date Marcellus Chino MD [address] [facility] [place] [address] PCP - General Family Medicine 09/24/21 documented as of this encounter
--- OUTSIDE RECORDS SUMMARY | 2025-04-24 09:14 | XMS_ITS | Encounter Summary ---
Author Organization [facility] Address [address] [facility] [place] [address] Phone Care Team Providers Care Cigar Head Piercer Name Role Phone Yadira Durbin MD Primary Care Provider [phone] Marcellus Chino MD Primary Care Provider [phone] Encounter Details Date Type Department Care Team (Late st Contact Info) Description 08/13/2021 Lab Requisition [facility] Laboratory Services 1 [place] [address] Marcellus Chino MD [address] [place] [address] Social History Tobacco Use Types Packs/Day [...] st Contact Info) Description 10/04/2025 10:00 AM CURB BUILDER Office Visit [facility] - [facility] Oncology Services [address] [place] [address] Xi Ellison Linn, PAC [address] [place] [address] Discharge Disposition: Discharged to home or Selfcare documented as of this encounter Procedures Procedure Name Priority Date/Time Associated Diagnosis Comments SARS-COV-2 BY MOLECULAR Routine 08/13/2021 8:05 AM CURB BUILDER documented in this encounter Results * SARS-COV-2 BY MOLECULAR (08/13/2021 8:05 AM CURB BUILDER) SARSCOV2 NOT DETECTED (Referen ce Range for this test is Not Detected ) [facility] THERMOFISHER FAST DX 08/14/2021 12:07 PM CURB BUILDER [facility] Comment:This test was perfor med by a RT-PCR method. Other Non-Phlebotomy Collection / Unknown 08/13/2021 8:05 AM CURB BUILDER 08/13/2021 10:28 AM CURB BUILDER Narrative [facility] - 08/14/2021 12:07 PM CURB BUILDER Authorized Fact Sheets about this test for providers and patients are available at: https://www.fda.gov/medical-devices/pjqbwuvqe-bcpmqnyihy-igbqcoz-devices/emergen cy-us e-authorizations us Marcellus Chino MD MICROBIOLOGY - GENERAL ORDERAB LES Final Result [facility] [address] [place] [address], documented in this encounter Visit Diagnoses Not on filedocumented in this encounter Additional Health Concerns Infection Onset Date Last Indicated Resolved Time COVID - 19 06/11/2021 10/15/2021 10/16/2021 9:00 AM CURB BUILDER COVID - 19 09/03/2021 09/10/2021 09/23/2021 12:1 6 AM CURB BUILDER COVID - 19 Confirmed 10/15/2021 10/15/2021 022 12:16 AM CURB BUILDER COVID - 19 10/29/2021 10/29/2021 11/18/2021 12:1 6 AM CURB BUILDER COVID - 19 12/31/2021 12/31/2021 01/20/2022 12:1 6 AM CDT COVID - 19 01/21/2022 07/29/2022 08/08/2022 12:1 6 AM CURB BUILDER COVID - 19 09/23/2022 10/07/2022 10/08/2022 12:3 9 AM CURB BUILDER COVID - 19 Confirmed 10/07/2022 10/07/2022 023 12:16 AM CURB BUILDER documented as of this encounter Care Teams Cigar Head Piercer Relationship Specialty Start Date End Date Yadira Durbin MD PCP - General Family Medicine 12/02/18 09/17/21 Marcellus Chino MD [address] [place] [address] PCP - General Family Medicine 09/24/21 documented as of this encounter
--- OUTSIDE RECORDS SUMMARY | 2025-04-24 09:14 | XMS_ITS | Encounter Summary ---
Author Organization [facility] Address [address] [facility] [place] [address] Phone Care Team Providers Care Gear Hobber Set Up Operator Name Role Phone Marcellus Chino MD Primary Care Provider [phone] Encounter Details Date Type Department Care Team (Late st Contact Info) Description 10/08/2021 Lab Requisition [facility] Laboratory Services 1 [place] [address] Marcellus Chino MD [address] [place] [address] [address] [place] [address] Encounter for screening for COVID-19 Social History [...] st Contact Info) Description 10/04/2025 10:00 AM WARP WORKER Office Visit [facility] Oncology Services [address] [place] [address] Xi Ellison PAC [address] [place] [address] Discharge Disposition: Discharged to home or Selfcare documented as of this encounter Procedures Procedure Name Priority Date/Time Associated Diagnosis Comments SARS-COV-2 BY MOLECULAR Routine 10/08/2021 7:26 AM WARP WORKER Encounter for screening for COVID-19 documented in this encounter Results * SARS-COV-2 BY MOLECULAR (10/08/2021 7:26 AM WARP WORKER) SARSCOV2 NOT DETECTED (Referen ce Range for this test is Not Detected ) [facility] THERMOFISHER FAST DX 10/10/2021 9:45 AM WARP WORKER [facility] Comment:This test was perfor med by a RT-PCR method. Other Non-Phlebotomy Collection / Unknown 10/08/2021 7:26 AM WARP WORKER 10/08/2021 1:35 PM WARP WORKER Narrative [facility] - 10/10/2021 9:45 AM WARP WORKER Authorized Fact Sheets about this test for providers and patients are available at: https://www.fda.gov/medical-devices/ajmygvfpi-ourctqmkbs-hjzedau-devices/emergen cy-us e-authorizations us Marcellus Chino MD MICROBIOLOGY - GENERAL ORDERAB LES Final Result Performing Organization Address City/State/[facility] Co de Phone Number [facility] [address] [place] [address], documented in this encounter Visit Diagnoses Diagnosis Encounter for screening for COVID-19 documented in this encounter Additional Health Concerns Infection Onset Date Last Indicated Resolved Time COVID - 19 06/11/2021 10/15/2021 10/16/2021 9:00 AM WARP WORKER COVID - 19 Confirmed 10/15/2021 10/15/2021 022 12:16 AM WARP WORKER COVID - 19 10/29/2021 10/29/2021 11/18/2021 12:1 6 AM WARP WORKER COVID - 19 12/31/2021 12/31/2021 01/20/2022 12:1 6 AM CDT COVID - 19 01/21/2022 07/29/2022 08/08/2022 12:1 6 AM WARP WORKER COVID - 19 09/23/2022 10/07/2022 10/08/2022 12:3 9 AM WARP WORKER COVID - 19 Confirmed 10/07/2022 10/07/2022 023 12:16 AM WARP WORKER documented as of this encounter Care Teams Gear Hobber Set Up Operator Relationship Specialty Start Date End Date Marcellus Chino MD 4 [email or web address] [address] [place] [address] PCP - General Family Medicine 09/24/21 documented as of this encounter
--- OUTSIDE RECORDS SUMMARY | 2025-04-24 09:15 | XMS_ITS | Encounter Summary ---
Author Organization [facility] Address [address] [facility] [address] Phone Care Team Providers Care Hotel Front Office Manager Name Role Phone Marcellus Chino MD Primary Care Provider [phone] Encounter Details Date Type Department Care Team (Late st Contact Info) Description 02/18/2022 Lab Requisition [facility] Laboratory Services 1 [place] [address] Marcellus Chino MD [address] [place] [address] [address] [place] [address] Encounter for screening for COVID-19 Social History [...] st Contact Info) Description 10/04/2025 10:00 AM SERVER PROGRAMMER Office Visit [facility] Oncology Services [address] [place] [address] Xi Ellison PAC 0 [place] [address] Discharge Disposition: Discharged to home or Selfcare documented as of this encounter Procedures Procedure Name Priority Date/Time Associated Diagnosis Comments SARS-COV-2 BY MOLECULAR Routine 02/18/2022 8:54 AM CDT Encounter for screening for COVID-19 documented in this encounter Results * SARS-COV-2 BY MOLECULAR (02/18/2022 8:54 AM CDT) SARSCOV2 NOT DETECTED (Referen ce Range for this test is Not Detected ) [facility] THERMOFISHER FAST DX 02/19/2022 8:04 AM CDT [facility] Comment:This test was perfor med by a RT-PCR method. Other No Phlebotomy Charged / Unknown 02/18/2022 8:54 AM CDT 02/18/2022 12:11 PM CDT Narrative [facility] - 02/19/2022 8:04 AM CDT Authorized Fact Sheets about this test for providers and patients are available at: https://www.fda.gov/medical-devices/xkhhgbweu-furwbadvsv-gwgfydv-devices/emergen -us e-authorizations us Marcellus Chnio MD MICROBIOLOGY - GENERAL ORDERAB LES Final Result [facility] [address] [place] [address], documented in this encounter Visit Diagnoses Diagnosis Encounter for screening for COVID-19 documented in this encounter Additional Health Concerns Infection Onset Date Last Indicated Resolved Time COVID - 19 01/21/2022 07/29/2022 08/08/2022 12:1 6 AM SERVER PROGRAMMER COVID - 19 09/23/2022 10/07/2022 10/08/2022 12:3 9 AM SERVER PROGRAMMER COVID - 19 Confirmed 10/07/2022 10/07/2022 02/07/2 023 12:16 AM SERVER PROGRAMMER documented as of this encounter Care Teams Hotel Front Office Manager Relationship Specialty Start Date End Date Marcellus Chino MD [address] [place] [address] PCP - General Family Medicine 09/24/21 documented as of this encounter
--- OUTSIDE RECORDS SUMMARY | 2025-04-24 09:15 | XMS_ITS | Encounter Summary ---
Author Organization [facility] Address [address] [facility] [place] [address] Phone Care Team Providers Care Expert Medical Writer Name Role Phone Yadira Durbin MD Primary Care Provider [phone] Marcellus Chino MD Primary Care Provider [phone] Encounter Details Date Type Department Care Team (Late st Contact Info) Description 07/09/2021 Lab Requisition [facility] Laboratory Services 1 [place] [address] Marcellus Chino MD [address] [place] [address] Encounter for screening for COVID-19 Social [...] st Contact Info) Description 10/04/2025 10:00 AM ICT HELP DESK OFFICER Office Visit [facility] Oncology Services [address] [place] [address] Xi Ellison Linn, PAC [address] [place] [address] Discharge Disposition: Discharged to home or Selfcare documented as of this encounter Procedures Procedure Name Priority Date/Time Associated Diagnosis Comments SARS-COV-2 BY MOLECULAR Routine 07/09/2021 8:25 AM CDT Encounter for screening for COVID-19 documented in this encounter Results * SARS-COV-2 BY MOLECULAR (07/09/2021 8:25 AM CDT) SARSCOV2 NOT DETECTED (Referen ce Range for this test is Not Detected ) [facility] THERMOFISHER FAST DX 07/10/2021 10:27 AM CDT [facility] Comment:This test was perfor med by a RT-PCR method. Other Non-Phlebotomy Collection / Unknown 07/09/2021 8:25 AM CDT 07/09/2021 11:14 AM CDT Narrative [facility] - 07/10/2021 10:27 AM CDT Authorized Fact Sheets about this test for providers and patients are available at: https://www.fda.gov/medical-devices/vdtvincln-ekreawvotv-vgubxtj-devices/emergen cy-us e-authorizations us Marcellus Chino MD MICROBIOLOGY - GENERAL ORDERAB LES Final Result [facility] [address] [place] [address], documented in this encounter Visit Diagnoses Diagnosis Encounter for screening for COVID-19 documented in this encounter Additional Health Concerns Infection Onset Date Last Indicated Resolved Time COVID - 19 06/11/2021 10/15/2021 10/16/2021 9:00 AM ICT HELP DESK OFFICER COVID - 19 09/03/2021 09/10/2021 09/23/2021 12:1 6 AM ICT HELP DESK OFFICER COVID - 19 Confirmed 10/15/2021 10/15/2021 022 12:16 AM ICT HELP DESK OFFICER COVID - 19 10/29/2021 10/29/2021 11/18/2021 12:1 6 AM ICT HELP DESK OFFICER COVID - 19 12/31/2021 12/31/2021 01/20/2022 12:1 6 AM CDT COVID - 19 01/21/2022 07/29/2022 08/08/2022 12:1 6 AM ICT HELP DESK OFFICER COVID - 19 09/23/2022 10/07/2022 10/08/2022 12:3 9 AM ICT HELP DESK OFFICER COVID - 19 Confirmed 10/07/2022 10/07/2022 023 12:16 AM ICT HELP DESK OFFICER documented as of this encounter Care Teams Expert Medical Writer Relationship Specialty Start Date End Date Yadira Durbin MD PCP - General Family Medicine 12/02/18 09/17/21 Marcellus Chino MD [address] [place] [address] PCP - General Family Medicine 09/24/21 documented as of this encounter
--- OUTSIDE RECORDS SUMMARY | 2025-04-24 09:15 | XMS_ITS | Encounter Summary ---
Author Organization [facility] Address [address] [facility] [place] [address] Phone Care Team Providers Care Steel Welder Name Role Phone Yadira Durbin MD Primary Care Provider [phone] Marcellus Chino MD Primary Care Provider [phone] Encounter Details Date Type Department Care Team (Late st Contact Info) Description 06/18/2021 Lab Requisition [facility] Laboratory Services 1 [place] [address] Marcellus Chino MD [address] [place] [address] [facility] [address] [place] [address] Encounter for screening for COVID-19 Social [...] Exposure Response Date Recorded In the last month, have you been in contact with someone who was confirmed or suspected to have Coronavirus / COVID-19? No / Unsure 05/21/2021 8:55 AM CDT documented as of this encounter Plan of Treatment Upcoming Encounters Date Type Department Care Team (Late st Contact Info) Description 10/04/2025 10:00 AM INSPECTOR AIDE Office Visit [facility] Oncology Services [address] [place] [address] Xi Ellison Linn, PAC [address] [place] [address] Discharge Disposition: Discharged to home or Selfcare documented as of this encounter Procedures Procedure Name Priority Date/Time Associated Diagnosis Comments SARS-COV-2 BY MOLECULAR Routine 06/18/2021 8:26 AM CDT Encounter for screening for COVID-19 documented in this encounter Results * SARS-COV-2 BY MOLECULAR (06/18/2021 8:26 AM CDT) SARSCOV2 NOT DETECTED (Referen ce Range for this test is Not Detected ) [facility] THERMOFISHER FAST DX 06/19/2021 6:36 AM CDT [facility] Comment:This test was perfor med by a RT-PCR method. Other Non-Phlebotomy Collection / Unknown 06/18/2021 8:26 AM CDT 06/18/2021 10:49 AM CDT Narrative [facility] - 06/19/2021 6:36 AM CDT Authorized Fact Sheets about this test for providers and patients are available at: https://www.fda.gov/medical-devices/hcratexgz-esoubvvurg-bagjolq-devices/emergen -us e-authorizations us Marcellus Chino MD MICROBIOLOGY - GENERAL ORDERAB LES Final Result [facility] [address] [place] [address], [place] documented in this encounter Visit Diagnoses Diagnosis Encounter for screening for COVID-19 documented in this encounter Additional Health Concerns Infection Onset Date Last Indicated Resolved Time COVID - 19 06/11/2021 10/15/2021 10/16/2021 9:00 AM INSPECTOR AIDE COVID - 19 09/03/2021 09/10/2021 09/23/2021 12:1 6 AM INSPECTOR AIDE COVID - 19 Confirmed 10/15/2021 10/15/2021 022 12:16 AM INSPECTOR AIDE COVID - 19 10/29/2021 10/29/2021 11/18/2021 12:1 6 AM INSPECTOR AIDE COVID - 19 12/31/2021 12/31/2021 01/20/2022 12:1 6 AM CDT COVID - 19 01/21/2022 07/29/2022 08/08/2022 12:1 6 AM INSPECTOR AIDE COVID - 19 09/23/2022 10/07/2022 10/08/2022 12:3 9 AM INSPECTOR AIDE COVID - 19 Confirmed 10/07/2022 10/07/2022 023 12:16 AM INSPECTOR AIDE documented as of this encounter Care Teams Steel Welder Relationship Specialty Start Date End Date Yadira Durbin MD PCP - General Family Medicine 12/02/18 09/17/21 Marcellus Chino MD [address] [place] [address] PCP - General Family Medicine 09/24/21 documented as of this encounter
--- OUTSIDE RECORDS SUMMARY | 2025-04-24 09:15 | XMS_ITS | Encounter Summary ---
Author Organization [facility] Address [address] [facility] [place] [address] Phone Care Team Providers Care Shine Worker Name Role Phone Marcellus Chino MD Primary Care Provider [phone] Encounter Details Date Type Department Care Team (Late st Contact Info) Description 03/18/2022 Lab Requisition [facility] Laboratory Services 1 [place] [address] Marcellus Chino MD [address] [place] [address] [address] [place] [address] Encounter for screening for COVID-19 Social History [...] st Contact Info) Description 10/04/2025 10:00 AM HOT KNIFE FOXING CUTTER Office Visit [facility] Oncology Services [address] [place] [address] Xi Ellison PAC 0 [place] [address] Discharge Disposition: Discharged to home or Selfcare documented as of this encounter Procedures Procedure Name Priority Date/Time Associated Diagnosis Comments SARS-COV-2 BY MOLECULAR Routine 03/18/2022 8:19 AM CDT Encounter for screening for COVID-19 documented in this encounter Results * SARS-COV-2 BY MOLECULAR (03/18/2022 8:19 AM CDT) SARSCOV2 NOT DETECTED (Referen ce Range for this test is Not Detected ) [facility] THERMOFISHER FAST DX 03/18/2022 5:27 PM CDT [facility] Comment:This test was perfor med by a RT-PCR method. Other Non-Phlebotomy Collection / Unknown 03/18/2022 8:19 AM CDT 03/18/2022 9:55 AM CDT Narrative [facility] - 03/18/2022 5:27 PM CDT Authorized Fact Sheets about this test for providers and patients are available at: https://www.fda.gov/medical-devices/bmiplsaem-mhbxcattgv-dkcnolz-devices/emergen cy-us e-authorizations us Marcellus Chino MD MICROBIOLOGY - GENERAL ORDERAB LES Final Result [facility] [address] [place] [address], documented in this encounter Visit Diagnoses Diagnosis Encounter for screening for COVID-19 documented in this encounter Additional Health Concerns Infection Onset Date Last Indicated Resolved Time COVID - 19 01/21/2022 07/29/2022 08/08/2022 12:1 6 AM HOT KNIFE FOXING CUTTER COVID - 19 09/23/2022 10/07/2022 10/08/2022 12:3 9 AM HOT KNIFE FOXING CUTTER COVID - 19 Confirmed 10/07/2022 10/07/2022 02/07/2 023 12:16 AM HOT KNIFE FOXING CUTTER documented as of this encounter Care Teams Shine Worker Relationship Specialty Start Date End Date Marcellus Chino MD [address] [place] [address] PCP - General Family Medicine 09/24/21 documented as of this encounter
--- OUTSIDE RECORDS SUMMARY | 2025-04-24 09:15 | XMS_ITS | Encounter Summary ---
Author Organization [facility] Address [address] [facility] [place] [address] Phone Care Team Providers Care Price Lister Name Role Phone Marcellus Chino MD Primary Care Provider [phone] Encounter Details Date Type Department Care Team (Late st Contact Info) Description 03/11/2022 Lab Requisition [facility] Laboratory Services 1 [place] [address] Marcellus Chino MD [address] [place] [address] [address] [place] [address] Encounter for screening for COVID-19 Social History [...] st Contact Info) Description 10/04/2025 10:00 AM FINANCIAL SOLUTIONS ADVISOR Office Visit [facility] Oncology Services [address] [place] [address] Xi Ellison PAC 0 [place] [address] Discharge Disposition: Discharged to home or Selfcare documented as of this encounter Procedures Procedure Name Priority Date/Time Associated Diagnosis Comments SARS-COV-2 BY MOLECULAR Routine 03/11/2022 8:20 AM CDT Encounter for screening for COVID-19 documented in this encounter Results * SARS-COV-2 BY MOLECULAR (03/11/2022 8:20 AM CDT) SARSCOV2 NOT DETECTED (Referen ce Range for this test is Not Detected ) [facility] THERMOFISHER FAST DX 03/11/2022 10:13 PM CDT [facility] Comment:This test was perfor med by a RT-PCR method. Other Non-Phlebotomy Collection / Unknown 03/11/2022 8:20 AM CDT 03/11/2022 9:28 AM CDT Narrative [facility] - 03/11/2022 10:13 PM CDT Authorized Fact Sheets about this test for providers and patients are available at: https://www.fda.gov/medical-devices/bdxyxtrwz-xzreznynyr-ktjzzec-devices/emergen cy-us e-authorizations us Marcellus Chino MD MICROBIOLOGY - GENERAL ORDERAB LES Final Result [facility] [address] [place] [address], documented in this encounter Visit Diagnoses Diagnosis Encounter for screening for COVID-19 documented in this encounter Additional Health Concerns Infection Onset Date Last Indicated Resolved Time COVID - 19 01/21/2022 07/29/2022 08/08/2022 12:1 6 AM FINANCIAL SOLUTIONS ADVISOR COVID - 19 09/23/2022 10/07/2022 10/08/2022 12:3 9 AM FINANCIAL SOLUTIONS ADVISOR COVID - 19 Confirmed 10/07/2022 10/07/2022 02/07/2 023 12:16 AM FINANCIAL SOLUTIONS ADVISOR documented as of this encounter Care Teams Price Lister Relationship Specialty Start Date End Date Marcellus Chino MD [address] [facility] [address] [place] [address] PCP - General Family Medicine 09/24/21 documented as of this encounter
--- OUTSIDE RECORDS SUMMARY | 2025-04-24 09:15 | XMS_ITS | Encounter Summary ---
Author Organization [facility] Address [address] [facility] [place] [address] Phone Care Team Providers Care Human Services Assistant Name Role Phone Marcellus Chino MD Primary Care Provider [phone] Encounter Details Date Type Department Care Team (Late st Contact Info) Description 02/25/2022 Lab Requisition [facility] Laboratory Services 1 [place] [address] Marcellus Chino MD [address] [place] [address] [address] [place] [address] Encounter for screening for COVID-19 Social History [...] st Contact Info) Description 10/04/2025 10:00 AM WELLNESS SPA MANAGER Office Visit [facility] Oncology Services [address] [place] [address] Xi Ellison PAC 0 [place] [address] Discharge Disposition: Discharged to home or Selfcare documented as of this encounter Procedures Procedure Name Priority Date/Time Associated Diagnosis Comments SARS-COV-2 BY MOLECULAR Routine 02/25/2022 8:44 AM CDT Encounter for screening for COVID-19 documented in this encounter Results * SARS-COV-2 BY MOLECULAR (02/25/2022 8:44 AM CDT) SARSCOV2 NOT DETECTED (Referen ce Range for this test is Not Detected ) [facility] THERMOFISHER FAST DX 02/26/2022 6:49 AM CDT [facility] Comment:This test was perfor med by a RT-PCR method. Other Non-Phlebotomy Collection / Unknown 02/25/2022 8:44 AM CDT 02/25/2022 12:43 PM CDT Narrative [facility] - 02/26/2022 6:49 AM CDT Authorized Fact Sheets about this test for providers and patients are available at: https://www.fda.gov/medical-devices/zpaqtjvwt-mfxxuvemqu-cikjmhp-devices/emergen cy-us e-authorizations us Marcellus Chino MD MICROBIOLOGY - GENERAL ORDERAB LES Final Result [facility] [address] [place] [address], documented in this encounter Visit Diagnoses Diagnosis Encounter for screening for COVID-19 documented in this encounter Additional Health Concerns Infection Onset Date Last Indicated Resolved Time COVID - 19 01/21/2022 07/29/2022 08/08/2022 12:1 6 AM WELLNESS SPA MANAGER COVID - 19 09/23/2022 10/07/2022 10/08/2022 12:3 9 AM WELLNESS SPA MANAGER COVID - 19 Confirmed 10/07/2022 10/07/2022 02/07/2 023 12:16 AM WELLNESS SPA MANAGER documented as of this encounter Care Teams Human Services Assistant Relationship Specialty Start Date End Date Marcellus Chino MD [address] [place] [address] PCP - General Family Medicine 09/24/21 documented as of this encounter
--- OUTSIDE RECORDS SUMMARY | 2025-04-24 09:15 | XMS_ITS | Encounter Summary ---
Author Organization [facility] Address [address] [facility] [place] [address] Phone Care Team Providers Care Analyzer Sales Name Role Phone Yadira Durbin MD Primary Care Provider [phone] Marcellus Chino MD Primary Care Provider [phone] Encounter Details Date Type Department Care Team (Late st Contact Info) Description 06/11/2021 Lab Requisition [facility] Laboratory Services 1 [place] [address] Marcellus Chino MD [address] [place] [address] [address] Social History Tobacco Use Types Packs/Day [...] st Contact Info) Description 10/04/2025 10:00 AM ENGAGEMENT LEAD Office Visit [facility] Oncology Services [address] [place] [address] Xi Ellison Linn, PAC [address] [place] [address] Discharge Disposition: Discharged to home or Selfcare documented as of this encounter Procedures Procedure Name Priority Date/Time Associated Diagnosis Comments SARS-COV-2 BY MOLECULAR Routine 06/11/2021 7:40 AM CDT documented in this encounter Results * SARS-COV-2 BY MOLECULAR (06/11/2021 7:40 AM CDT) SARSCOV2 NOT DETECTED (Referen ce Range for this test is Not Detected ) [facility] THERMOFISHER FAST DX 06/12/2021 8:27 AM CDT [facility] Comment:This test was perfor med by a RT-PCR method. Other Non-Phlebotomy Collection / Unknown 06/11/2021 7:40 AM CDT 06/11/2021 11:27 AM CDT Narrative [facility] - 06/12/2021 8:27 AM CDT Authorized Fact Sheets about this test for providers and patients are available at: https://www.fda.gov/medical-devices/yrfmrsfrh-fnmwwgibxr-qlabzpc-devices/emergen cy-us e-authorizations us Marcellus Chino MD MICROBIOLOGY - GENERAL ORDERAB LES Final Result [facility] [address] [place] [address], documented in this encounter Visit Diagnoses Not on filedocumented in this encounter Additional Health Concerns Infection Onset Date Last Indicated Resolved Time COVID - 19 06/11/2021 10/15/2021 10/16/2021 9:00 AM ENGAGEMENT LEAD COVID - 19 09/03/2021 09/10/2021 09/23/2021 12:1 6 AM ENGAGEMENT LEAD COVID - 19 Confirmed 10/15/2021 10/15/2021 022 12:16 AM ENGAGEMENT LEAD COVID - 19 10/29/2021 10/29/2021 11/18/2021 12:1 6 AM ENGAGEMENT LEAD COVID - 19 12/31/2021 12/31/2021 01/20/2022 12:1 6 AM CDT COVID - 19 01/21/2022 07/29/2022 08/08/2022 12:1 6 AM ENGAGEMENT LEAD COVID - 19 09/23/2022 10/07/2022 10/08/2022 12:3 9 AM ENGAGEMENT LEAD COVID - 19 Confirmed 10/07/2022 10/07/2022 023 12:16 AM ENGAGEMENT LEAD documented as of this encounter Care Teams Analyzer Sales Relationship Specialty Start Date End Date Yadira Durbin MD PCP - General Family Medicine 12/02/18 09/17/21 Marcellus Chino MD [address] [address] PCP - General Family Medicine 09/24/21 documented as of this encounter
--- OUTSIDE RECORDS SUMMARY | 2025-04-24 09:15 | XMS_ITS | Encounter Summary ---
Author Organization [facility] Address [address] [place] [address] Phone Care Team Providers Care Nursing Home Assistant Administrator Name Role Phone Marcellus Chino MD Primary Care Provider [phone] Encounter Details Date Type Department Care Team (Late st Contact Info) Description 04/08/2022 Lab Requisition [facility] Laboratory Services 1 [place] [address] Marcellus Chino MD [address] [place] [address] [address] [place] [address] Encounter for screening for COVID-19 Social History [...] st Contact Info) Description 10/04/2025 10:00 AM LEAVE SPECIALIST Office Visit [facility] Oncology Services [address] [place] [address] Xi Ellison PAC 0 [place] [address] Discharge Disposition: Discharged to home or Selfcare documented as of this encounter Procedures Procedure Name Priority Date/Time Associated Diagnosis Comments SARS-COV-2 BY MOLECULAR Routine 04/08/2022 8:00 AM CDT Encounter for screening for COVID-19 documented in this encounter Results * SARS-COV-2 BY MOLECULAR (04/08/2022 8:00 AM CDT) SARSCOV2 NOT DETECTED (Referen ce Range for this test is Not Detected ) [facility] THERMOFISHER FAST DX 04/09/2022 12:04 AM CDT [facility] Comment:This test was perfor med by a RT-PCR method. Other Non-Phlebotomy Collection / Unknown 04/08/2022 8:00 AM CDT 04/08/2022 11:17 AM CDT Narrative [facility] - 04/09/2022 12:04 AM CDT Authorized Fact Sheets about this test for providers and patients are available at: https://www.fda.gov/medical-devices/wjzghsmsm-bcakwnglhb-gcunxgd-devices/emergen cy-us e-authorizations us Marcellus Chino MD MICROBIOLOGY - GENERAL ORDERAB LES Final Result [facility] [address] [place] [address], documented in this encounter Visit Diagnoses Diagnosis Encounter for screening for COVID-19 documented in this encounter Additional Health Concerns Infection Onset Date Last Indicated Resolved Time COVID - 19 01/21/2022 07/29/2022 08/08/2022 12:1 6 AM LEAVE SPECIALIST COVID - 19 09/23/2022 10/07/2022 10/08/2022 12:3 9 AM LEAVE SPECIALIST COVID - 19 Confirmed 10/07/2022 10/07/202210/27/2 023 12:16 AM LEAVE SPECIALIST documented as of this encounter Care Teams Nursing Home Assistant Administrator Relationship Specialty Start Date End Date Marcellus Chino MD [address] [place] [address] PCP - General Family Medicine 09/24/21 documented as of this encounter
--- OUTSIDE RECORDS SUMMARY | 2025-04-24 09:15 | XMS_ITS | Encounter Summary ---
Author Organization [facility] Address [address] [place] [address] Phone Care Team Providers Care Music Arranger Name Role Phone Yadira Durbin MD Primary Care Provider [phone] Marcellus Chino MD Primary Care Provider [phone] Encounter Details Date Type Department Care Team (Late st Contact Info) Description 07/16/2021 Lab Requisition [facility] Laboratory Services [address] [place] [address] Marcellus Chino MD [address] [place] [address] Encounter for screening for COVID-19 Social [...] st Contact Info) Description 10/04/2025 10:00 AM MAKEUP SALES CONSULTANT Office Visit [facility] On[facility] Services [address] [place] [address] Xi Ellison Linn, PAC [address] [place] [address] Discharge Disposition: Discharged to home or Selfcare documented as of this encounter Procedures Procedure Name Priority Date/Time Associated Diagnosis Comments SARS-COV-2 BY MOLECULAR Routine 07/16/2021 8:09 AM CDT Encounter for screening for COVID-19 documented in this encounter Results * SARS-COV-2 BY MOLECULAR (07/16/2021 8:09 AM CDT) SARSCOV2 NOT DETECTED (Referen ce Range for this test is Not Detected ) [facility]MO[facility] FAST DX 07/17/2021 7:12 AM CDT [facility] Comment:This test was perfor med by a RT-PCR method. Other Non-Phlebotomy Collection / Unknown 07/16/2021 8:09 AM CDT 07/16/2021 12:03 PM CDT Narrative [facility] - 07/17/2021 7:12 AM CDT Authorized Fact Sheets about this test for providers and patients are available at: https://www.fda.gov/medical-devices/jzbwknwbk-wcluhfavxu-pcprhiu-devices/emergen cy-us e-authorizations us Marcellus Chino MD MICROBIOLOGY - GENERAL ORDERAB LES Final Result [facility] [address] [place] [address], documented in this encounter Visit Diagnoses Diagnosis Encounter for screening for COVID-19 documented in this encounter Additional Health Concerns Infection Onset Date Last Indicated Resolved Time COVID - 19 06/11/2021 10/15/2021 10/16/2021 9:00 AM MAKEUP SALES CONSULTANT COVID - 19 09/03/2021 09/10/2021 09/23/2021 12:1 6 AM MAKEUP SALES CONSULTANT COVID - 19 Confirmed 10/15/2021 10/15/2021 022 12:16 AM MAKEUP SALES CONSULTANT COVID - 19 10/29/2021 10/29/2021 11/18/2021 12:1 6 AM MAKEUP SALES CONSULTANT COVID - 19 12/31/2021 12/31/2021 01/20/2022 12:1 6 AM CDT COVID - 19 01/21/2022 07/29/2022 08/08/2022 12:1 6 AM MAKEUP SALES CONSULTANT COVID - 19 09/23/2022 10/07/2022 10/08/2022 12:3 9 AM MAKEUP SALES CONSULTANT COVID - 19 Confirmed 10/07/2022 10/07/2022 023 12:16 AM MAKEUP SALES CONSULTANT documented as of this encounter Care Teams Music Arranger Relationship Specialty Start Date End Date Yadira Durbin MD PCP - General Family Medicine 12/02/18 09/17/21 Marcellus Chino MD [address] [place] [address] PCP - General Family Medicine 09/24/21 documented as of this encounter
--- OUTSIDE RECORDS SUMMARY | 2025-04-24 09:15 | XMS_ITS | Encounter Summary ---
Author Organization [facility] Address [address] [place] [address] Phone Care Team Providers Care Pediatric Occupational Therapist Name Role Phone Marcellus Chino MD Primary Care Provider [phone] Encounter Details Date Type Department Care Team (Late st Contact Info) Description 03/25/2022 Lab Requisition [facility] Laboratory Services [address] [place] [address] Marcellus Chino MD [address] [place] [address] [address] [place] [address] Encounter for screening for COVID-19 Social History [...] st Contact Info) Description 10/04/2025 10:00 AM FUSION JUNCTURE GRINDER Office Visit [facility] Oncology Services [address] [place] [address] Xi Ellison PAC [address] [place] [address] Discharge Disposition: Discharged to home or Selfcare documented as of this encounter Procedures Procedure Name Priority Date/Time Associated Diagnosis Comments SARS-COV-2 BY MOLECULAR Routine 03/25/2022 8:04 AM CDT Encounter for screening for COVID-19 documented in this encounter Results * SARS-COV-2 BY MOLECULAR (03/25/2022 8:04 AM CDT) SARSCOV2 NOT DETECTED (Referen ce Range for this test is Not Detected ) [facility] THERMOF[facility]ER FAST DX 03/26/2022 11:34 AM CDT [facility] Comment:This test was perfor med by a RT-PCR method. Other No Phlebotomy Charged / Unknown 03/25/2022 8:04 AM CDT 03/25/2022 11:02 AM CDT Narrative [facility] - 03/26/2022 11:34 AM CDT Authorized Fact Sheets about this test for providers and patients are available at: https://www.fda.gov/medical-devices/rtwmylgqw-wldxefdmis-zmpibsx-devices/emergen -us e-authorizations us Marcellus Chino MD MICROBIOLOGY - GENERAL ORDERAB LES Final Result [facility] [address] [place] [address], documented in this encounter Visit Diagnoses Diagnosis Encounter for screening for COVID-19 documented in this encounter Additional Health Concerns Infection Onset Date Last Indicated Resolved Time COVID - 19 01/21/2022 07/29/2022 08/08/2022 12:1 6 AM FUSION JUNCTURE GRINDER COVID - 19 09/23/2022 10/07/2022 10/08/2022 12:3 9 AM FUSION JUNCTURE GRINDER COVID - 19 Confirmed 10/07/2022 10/07/202210/27/2 023 12:16 AM FUSION JUNCTURE GRINDER documented as of this encounter Care Teams Pediatric Occupational Therapist Relationship Specialty Start Date End Date Marcellus Chino MD [address] [place] [address] PCP - General Family Medicine 09/24/21 documented as of this encounter
--- OUTSIDE RECORDS SUMMARY | 2025-04-24 09:15 | XMS_ITS | Encounter Summary ---
Author Organization [facility] Address [address] [place] [address] Phone Care Team Providers Care Sales And Service Representative Name Role Phone Marcellus Chino MD Primary Care Provider [phone] Encounter Details Date Type Department Care Team (Late st Contact Info) Description 04/15/2022 Lab Requisition [facility] Laboratory Services [address] [place] [address] Marcellus Chino MD [address] [place] [address] [address] [place] [address] Encounter for screening for COVID-19 Social History [...] Contact Info) Description 10/04/2025 10:00 AM VISUAL STYLIST Office Visit [facility] Oncology Services [address] [place] [address] Xi Ellison PAC [address] [place] [address] Discharge Disposition: Discharged to home or Selfcare documented as of this encounter Procedures Procedure Name Priority Date/Time Associated Diagnosis Comments SARS-COV-2 BY MOLECULAR Routine 04/15/2022 8:43 AM CDT Encounter for screening for COVID-19 documented in this encounter Results * SARS-COV-2 BY MOLECULAR (04/15/2022 8:43 AM CDT) SARSCOV2 NOT DETECTED (Referen ce Range for this test is Not Detected ) [facility] FAST DX 04/16/2022 9:26 AM CDT [facility] Comment:This test was perfor med by a RT-PCR method. Other Non-Phlebotomy Collection / Unknown 04/15/2022 8:43 AM CDT 04/15/2022 1:25 PM CDT Narrative [facility] - 04/16/2022 9:26 AM CDT Authorized Fact Sheets about this test for providers and patients are available at: https://www.fda.gov/medical-devices/pvbirhwtn-agqzochirz-aarhgvs-devices/emergen cy-us e-authorizations us Marcellus Chino MD MICROBIOLOGY - GENERAL ORDERAB LES Final Result [facility] [address] [place] [address], documented in this encounter Visit Diagnoses Diagnosis Encounter for screening for COVID-19 documented in this encounter Additional Health Concerns Infection Onset Date Last Indicated Resolved Time COVID - 19 01/21/2022 07/29/2022 08/08/2022 12:1 6 AM VISUAL STYLIST COVID - 19 09/23/2022 10/07/2022 10/08/2022 12:3 9 AM VISUAL STYLIST COVID - 19 Confirmed 10/07/2022 10/07/202210/27/2 023 12:16 AM VISUAL STYLIST documented as of this encounter Care Teams Sales And Service Representative Relationship Specialty Start Date End Date Marcellus Chino MD [address] [place] [address] PCP - General Family Medicine 09/24/21 documented as of this encounter
--- OUTSIDE RECORDS SUMMARY | 2025-04-24 09:15 | XMS_ITS | Encounter Summary ---
Author Organization [facility] Address [address] [facility] [place] [address] Phone Care Team Providers Care Dish Maker Name Role Phone Marcellus Chino MD Primary Care Provider [phone] Encounter Details Date Type Department Care Team (Late st Contact Info) Description 03/04/2022 Lab Requisition [facility] Laboratory Services [address] [place] [address] Marcellus Chino MD [address] [place] [address] [address] [place] [address] Encounter for screening for COVID-19 Social History [...] st Contact Info) Description 10/04/2025 10:00 AM POLITICAL THEORY PROFESSOR Office Visit [facility] Oncology Services [address] [place] [address] Xi Ellison PAC [address] [place] [address] Discharge Disposition: Discharged to home or Selfcare documented as of this encounter Procedures Procedure Name Priority Date/Time Associated Diagnosis Comments SARS-COV-2 BY MOLECULAR Routine 03/04/2022 8:21 AM CDT Encounter for screening for COVID-19 documented in this encounter Results * SARS-COV-2 BY MOLECULAR (03/04/2022 8:21 AM CDT) SARSCOV2 NOT DETECTED (Referen ce Range for this test is Not Detected ) [facility]MO[facility] FAST DX 03/04/2022 7:27 PM CDT [facility] Comment:This test was perfor med by a RT-PCR method. Other Non-Phlebotomy Collection / Unknown 03/04/2022 8:21 AM CDT 03/04/2022 9:29 AM CDT Narrative [facility] - 03/04/2022 7:27 PM CDT Authorized Fact Sheets about this test for providers and patients are available at: https://www.fda.gov/medical-devices/sceqejugc-hbeywumyeu-favxzlr-devices/emergen cy-us e-authorizations us Marcellus Chino MD MICROBIOLOGY - GENERAL ORDERAB LES Final Result [facility] [address] [place] [address], documented in this encounter Visit Diagnoses Diagnosis Encounter for screening for COVID-19 documented in this encounter Additional Health Concerns Infection Onset Date Last Indicated Resolved Time COVID - 19 01/21/2022 07/29/2022 08/08/2022 12:1 6 AM POLITICAL THEORY PROFESSOR COVID - 19 09/23/2022 10/07/2022 10/08/2022 12:3 9 AM POLITICAL THEORY PROFESSOR COVID - 19 Confirmed 10/07/2022 10/07/2022 02/07/2 023 12:16 AM POLITICAL THEORY PROFESSOR documented as of this encounter Care Teams Dish Maker Relationship Specialty Start Date End Date Marcellus Chino MD [address] [facility] [address] [place] [address] PCP - General Family Medicine 09/24/21 documented as of this encounter
== END 2025-04-24 08:59 | disposition home or self-care (01) ==
LOC: ANHBWCAUD 09:01
PROVIDERS: PCP Family Medicine; Visit Provider Family Medicine
DX: H90.3 Sensorineural hearing loss, bilateral (principal)
CPT/HCPCS: 92557; 92567